=== PATIENT | female | born 2000 | race African-American/Black ===

== ENCOUNTER 2023-10-08 20:37 | Emergency (ER) | payer OTHER, SELFPAY ==
[2023-10-08 20:48] VITALS: BP 157/109; PULSE 102; RESP 20; TEMP 37.3; O2SAT 99; BMI 46.0
--- NOTE | 2023-10-08 21:10 | ED.URI1 ---
HPI - URI/Sore Throat General Chief Complaint: Upper Respiratory Infection Stated Complaint: SOB, ABDOMINAL PAIN Time Seen by Provider: 10/08/23 21:02 Source: patient History of Present Illness HPI Narrative: 22-year-old female presents for 2 to 3-day history of cough. Is nonproductive. No vomiting or diarrhea. No fever. She has a history of asthma and has an inhaler at home. She has not been around ill people as far she knows. Related Data Previous Rx's Medication Instructions Recorded benzonatate 100 mg capsule 100 mg PO TID PRN cough #20 caps 10/08/23 loratadine 5 mg-pseudoephedrine ER 1 tab PO Q12H PRN nasal congestion 10/08/23 120 mg tablet,extended #20 tabs release,12hr (Claritin-D 12 Hour) Allergies Allergy/AdvReac Type Severity Reaction Status Date / Time No Known Drug Allergies Allergy Verified 10/08/23 20:52 Review of Systems ROS Narrative A ten point review of systems is negative except as noted above. Exam Narrative Exam Narrative: Nurses note and vital signs reviewed and patient is not hypoxic. General: The patient appears well and in no apparent distress. Patient is resting comfortably on cart. Skin: Warm, dry, no pallor noted. There is no rash noted. Head: Normocephalic, atraumatic Eye: Normal conjunctiva, no drainage Ears, Nose, Mouth, and Throat: oral mucosa is moist. Nares patent. Cardiovascular: Regular Rate and Rhythm Respiratory: Patient is in no distress, no accessory muscle use, lungs are clear to auscultation, no wheezing, rales or rhonchi Back: non-tender GI: Soft and nontender Musculoskeletal: The patient has no evidence of calf tenderness, no pitting edema, symmetrical pulses noted bilaterally Neurological: A&O, normal speech Psychiatric: Cooperative Constitutional Vital Signs, click to edit/add: Last Vital Signs Temp 99.1 F 10/08/23 20:48 Pulse 102 H 10/08/23 20:48 Resp 20 10/08/23 20:48 BP 157/109 H 10/08/23 20:48 Pulse Ox 99 10/08/23 20:48 Course Vital Signs Vital signs: Vital Signs Temperature 99.1 F 10/08/23 20:48 Pulse Rate 102 H 10/08/23 20:48 Respiratory Rate 20 10/08/23 20:48 Blood Pressure 157/109 H 10/08/23 20:48 Pulse Oximetry 99 10/08/23 20:48 Temperature 99.1 F 10/08/23 20:48 Pulse Rate 102 H 10/08/23 20:48 Respiratory Rate 20 10/08/23 20:48 Blood Pressure 157/109 H 10/08/23 20:48 Pulse Oximetry 99 10/08/23 20:48 MDM - URI/Sore Throat MDM Narrative Medical decision making narrative: COVID and influenza tests are negative and she will be treated symptomatically. Antibiotic not indicated. Treatment diagnosis and follow-up were discussed with the patient Differential Diagnosis Differential diagnosis: Likely upper respiratory infection, viral infection, influenza and other (COVID) Lab Data Attestation: I reviewed the patient's lab results. Labs: Lab Results 10/08/23 Range/Units 20:54 Influenza Type A Ag Negative Influenza Type B Ag Negative SARS-CoV-2 Ag (CV2AG) Negative (NEGATIVE) Discharge Plan Discharge Chief Complaint: Upper Respiratory Infection Clinical Impression: Upper respiratory infection Patient Disposition: Home, Self-Care Time of Disposition Decision: 21:32 Condition: Good Mode of Transportation: Private Vehicle Prescriptions / Home Meds: New benzonatate 100 mg capsule 100 mg PO TID PRN (Reason: cough) Qty: 20 0RF Claritin-D 12 Hour 5-120 mg tablet extended release 12 hr 1 tab PO Q12H PRN (Reason: nasal congestion) Qty: 20 0RF Instructions: Upper Respiratory Infection (ED), Viral Syndrome (ED) Stand Alone Forms: Portal Instructions Referrals: ZAINAB MCCLURE [Primary Care Provider] - 1 week
[2023-10-08 21:28] LABS: Influenza Virus A Antigen Negative; Influenza Virus B Antigen Negative
[2023-10-08 21:29] LABS: Internal Control Within Normal Limits; SARS-CoV-2 Ag NEGATIVE (NEGATIVE)
[2023-10-08] MEDS: BENZONATATE 100 MG CAPSULE PO (21:51)
== END 2023-10-08 21:57 | disposition home or self-care (01) ==
PROVIDERS: Emergency Provider Emergency Medicine; PCP Family Medicine
DX: J06.9 Acute upper respiratory infection, unspecified (principal); J45.909 Unspecified asthma, uncomplicated; Z79.899 Other long term (current) drug therapy; Z20.822 Contact with and (suspected) exposure to COVID-19
CPT/HCPCS: 87804; 87811; 99283

== ENCOUNTER 2023-12-21 11:39 | Outpatient (OUT) | payer OTHER, SELFPAY ==
--- OUTSIDE RECORDS SUMMARY | 2023-12-21 11:45 | XMS_ITS | CCD ---
Author Organization [facility] Care Team Providers Care Small Stock Facer Name Role Phone MD José Miguel Garcia Attending Provider DO Nelson Sams Primary Care Provider DR NELSON SAMS Primary Care Unavailable DENILSON PATEL Admitting Unavailable DENILSON PATEL Attending Unavailable TISHA ., MR HERNANDEZ Consulting Unavailable BRIANNA MUSTAFA Consulting Unavailable None, None Primary Care Provider UnavailMONSE Negron Referring Unavailable NONE, NONE Primary Care Unavailable Nelson Sams MD Primary Care Provider YENI MAYNARD Attending Unavailable YENI MAYNARD Attending Unavailable YENI MAYNARD Attending Unavailable Medications Current Medications Medication Drug Class(es) Dates Sig (Normalized) Sig (Original) acetaminophen 325 mg / HYDROcodone bitartrate 5 mg oral tablet (2 sources) Opioid Agonist Start: 03-26-2022 take 1 tablet by mouth every six hours Hydrocodone-Aceta minophen Active 1 TAB PO Q6H 20 March 26, 2022 Start: 03-26-2022 take 1 tablet by salvatore th every six hours Hydrocodone-Acetaminophen Active 1 TAB P O Q6H 20 March 26, 2022 [id number] 200 actuat albuterol 0.09 mg/actuat metered dose inhaler (1 source) beta2-Adrenergic Agonist take 2 puff(s) by inhalation every four hours as needed albuterol HFA (ProAir HFA) 90 mcg/act inhaler 2 puffs Inhalation every 4 hrs prn 0 Active ethinyl estradiol 0.03 mg / levonorgestrel 0.15 mg oral tablet (1 source) Progestin, Estrogen, Progestin-containing Intrauterine Device Start: 2023 End: 2024 levonorgestrel-ethin yl estradiol (Nordette) 0.15-30 MG-MCG tablet Indications: Abnormal vaginal bleeding Take 1 tablet by mouth in the morning. 28 tablet 11 09/06/2023 09/05/2024 Active fluticasone propionate 0.05 mg/actuat metered dose nasal spray (1 source) Corticosteroid fluticasone (Flonase) 50 MCG/ACT nasal spray 2 sprays 1 (one) time each day at the same time 0 Active metFORMIN hydrochloride 500 mg oral tablet (1 source) Biguanide Start: 2023 End: 2023 take 1 tablet by mouth in the morning metFORMIN (Glucophage) 500 MG tablet Indications: Insulin resistance Take 1 tablet (500 mg) by mouth in the morning and 1 tablet (500 mg) in the evening. Take with meals. 60 tablet 2 09/28/2023 10/28/2023 Active montelukast 10 mg oral tablet (1 source) Leukotriene Receptor Antagonist take 1 tablet by mouth once daily montelukast (SINGULAIR) 10 MG tablet Take 1 tablet by mouth nightly 0 Active spironolactone 25 mg oral tablet (1 source) Aldosterone Antagonist Start: 2023 End: 2024 take 2 tablets by mouth in the morning spironolactone (Aldactone) 25 MG tablet Indications: Hirsutism Take 2 tablets (50 mg) by mouth in the morning. 180 tablet 3 09/06/2023 09/05/2024 Active Problems Problem Classification Problem Date Documented Date Episodic/Chronic Female infertility (1 source) Fertility problem; Translations: [Female infertility, unspecified] 09-27-2023 Chronic Immunizations and screening for infectious disease (2 sources) Patient encounter status; Translations: [Encounter for screening for infections with a predominantly sexual mode of transmission] Onset: 02-02-2023 Episodic Other female genital disorders (1 source) Abnormal vaginal bleeding; Translations: [Abnormal uterine and vaginal bleeding, unspecified] 09-27-2023 Chronic Other nervous system disorders (2 sources) Acute postoperative pain; Translations: [Other acute postprocedural pain] 03-26-2022 Episodic Other non-traumatic joint disorders (4 sources) Pain in right ankle and joints of right foot; Translations: [PAIN IN RIGHT ANKLE] Onset: 12-20-2022 Episodic Other nutritional; endocrine; and metabolic disorders (1 source) Insulin resistance; Translations: [Insulin resistance] 09-28-2023 Chronic Other skin disorders (1 source) Hirsutism; Translations: [Hirsutism] 09-27-2023 Episodic Results Test Name Value Interpretation Reference Range Facil ity Chlamydia/GC DNA, Uron 02-03 Chlamydia Probe, Ur Negative Normal NEG [facility] Comment on above: Result Comment: CHLA MYDIA TRACHOMATIS DNA not detected by nucleic acid amplification. This test is intended for medical purposes only and is not valid for the evaluation of suspected sexual abuse or for other forensic purposes. In certain contexts, culture may be required to meet applicable laws and regulations for diagnosis of C. trachomatis and N. gonorrhoeae infections. Per 2014 CDC recommendations, this test does not include confirmation of positive results by an alternative nucleic acid target. Performed By: #### U CGP #### [facility] [address] [place], [place] [id number] Marketing Secretary: Lavell Mcdonough MD Gonorrhea Probe, Ur Negative Normal NEG [facility] Comment on above: Result Comment: NEIS SERIA GONORRHOEAE DNA not detected by nucleic acid amplification. This test is intended for medical purposes only and is not valid for the evaluation of suspected sexual abuse or for other forensic purposes. In certain contexts, culture may be required to meet applicable laws and regulations for diagnosis of C. trachomatis and N. gonorrhoeae infections. Per 2014 CDC recommendations, this test does not include confirmation of positive results by an alternative nucleic acid target. Performed By: #### U CGP #### [facility] [address] [place], [place] [id number] Marketing Secretary: Lavell Mcdonough MD XR ANKLE RT MIN 3 VIEWSon XR ANKLE RT MIN 3 VIEWS EXAM: XR ANKLE RT MIN 3 VIEWS HISTORY: Ankle pain COMPARISON: None. TECHNIQUE: 3 views FINDINGS: Diffuse subcutaneous soft tissue edema. No osseous lesion, fracture, dislocation or subluxation. Joint spaces are normal. No visualized effusion. IMPRESSION: Diffuse soft tissue edema with no visualized osseous abnormality. Electronically authenticated by: BRIANNA MUSTAFA Date: 2022-12-20 18:10 Normal [facility] HCG ( test) laminemikhail tiana Ql (U)Ordered By: Rich Whyte on 03-26-2022 HCG ( test) Ql (U) Negative [facility] HCG,Urineon 03-26-2022 Beta HCG ( test) Ql (U) Negative Normal [facility] Comment on above: Result Comment: PERF ORMED BY: [place] [address] PATHOLOGIST INSTITUTE SCIENTIST YOLANDA JONES M.D. Performed By: #### U HCG #### [address] [place] 03-26-2022 L - -------- Specimen: [id number] Received: 03/26/22 Status: FLO Angie Num: [id number] Spec Type: Surgical Subm Dr: José Miguel Garcia MD Tissues: A Soft Tissue Mass - Simple Excision (except lipoma) (LEFT AXILLARY MASS) B Soft Tissue Mass - Simple Excision (except lipoma) (RIGHT AXILLARY MASS) Procedures: HE Stain/3, Gross/Micro L5/2 -------- Age/ Patient Sex Location Account Attending Physician -------- Marcia Izquierdo [place] [id number] José Miguel Garcia MD -------- SPEC NUM: [id number] RECD: 03/26/22 STATUS: FLO ADAMS NUM: [id number] JUANA: 03/26/220000 SUBM DR: José Miguel Garcia MD ENTERED: 03/26/[address] [facility] DR: WALTER TYPE: Surgical DEPT: S ENTERED BY: [id number] RECV BY: [id number] ORDERED: HE Stain/3, Gross/Micro L5/2 ORDERED: HE Stain/3, Gross/Micro L5/2 Pathological Diagnosis A. Soft tissue, left axilla, excision: - Ruptured and inflamed epidermal inclusion cyst B. Soft tissue, right axilla, excision: - Ruptured and inflamed epidermal inclusion cyst Clinical Information Bilateral axillary masses Gross Description A. Received in 10% neutral buffered formalin, labeled with the patient's name and left axillary mass is a 4.4 x 3.7 x 1.2 cm aggregate of bey-prakash, rubbery tissue and skin with yellow, lobular, focally hyperemic cut surfaces. [employer] Senior Specialist sections are submitted in one cassette labeled A1. (JAYLYN) B. Received in 10% neutral buffered formalin, labeled with the patient's name and right axillary mass is a 2.5 x 1.2 cm ellipse of bey-prakash, centrally ulcerated skin excised to a depth of 1.1 cm. The specimen is entirely submitted in 2 cassettes as follows: B1 - Central lesional area B2 - Radial tips (JAYLYN) -------- Specimen: [id number] Received: 03/26/22 Status: FLO Adams Num: [id number] Spec Type: Surgical Subm Dr: José Miguel Garcia MD Tissues: A Soft Tissue Mass - Simple Excision (except lipoma) (LEFT AXILLARY MASS) B Soft Tissue Mass - Simple Excision (except lipoma) (RIGHT AXILLARY MASS) Procedures: ZACK Stain/3, Gross/Micro L5/2 -------- Patient: Marcia Izquierdo [id number] (Continued) -------- Specimen: [id number] Received: 03/26/22 (Continued) Signed (signature on file) Yolanda Jones MD 03/27/22 1843 -------- Specimen: [id number] Received: 03/26/22 Status: FLO Adams Num: [id number] Spec Type: Surgical Subm Dr: José Miguel Garcia MD Tissues: A Soft Tissue Mass - Simple Excision (except lipoma) (LEFT AXILLARY MASS) B Soft Tissue Mass - Simple Excision (except lipoma) (RIGHT AXILLARY MASS) Procedures: HE Stain/3, Gross/Micro L5/2 -------- Patient: Marcia Izquierdo [id number] (Continued) -------- Specimen: [id number] Received: 03/26/22 (Continued) Microscopic Description A. One glass slide with H E stained material has been examined. The microscopic findings support the above pathologic diagnosis. B. Two glass slides with H E stained material have been examined. The microscopic findings support the above pathologic diagnosis. [id number] -------- -------- Specimen: [id number] Received: 03/26/22113 Status: FLO Adams Num: [id number] Spec Type: Surgical Subm Dr: José Miguel Garcia MD Tissues: A Soft Tissue Mass - Simple Excision (except lipoma) (LEFT AXILLARY MASS) B Soft Tissue Mass - Simple Excision (except lipoma) (RIGHT AXILLARY MASS) Procedures: HE Stain/3, Gross/Micro L5/2 -------- Patient: Marcia Izquierdo [id number] (Continued) -------- Signed (signature on file) Yolanda Jones MD 03/27/22 1843 Normal [facility] SARS-CoV-2 (COVID-19) RNA REZA+probe Ql (Unsp spec) Negative Normal Negative [facility] Comment on above: Order Comment: Healt hcare Worker?: N Result Comment: Testing for SARS-CoV-2 by RT-PCR This test was developed and its performance characteristics determined by [employer] ([place]) and validated at the [facility]. This test has not been FDA cleared or approved. This test has been authorized by FDA under an Emergency Use Authorization (EUA). This test has been validated in accordance with the FDA's Guidance Document (Policy for Diagnostics Testing in Laboratories Certified to Perform High Complexity Testing under CLIA prior to Emergency Use Authorization for Coronavirus Disease-2019 during the Public Health Emergency) issued on 2019. This test is only authorized for the duration of time the declaration that circumstances exist justifying the authorization of the emergency use of in vitro diagnostic tests for detection of SARS-CoV-2 virus and/or diagnosis of COVID-19 infection under section 564(b)(1) of the Act, 21 U.S.C. 360bbb-3(b)(1), unless the authorization is terminated or revoked sooner. PERFORMED BY: [place] [address] PATHOLOGIST INSTITUTE SCIENTIST YOLADNA JONES M.D. Performed By: #### C OVID 19 [facility] #### [address] COVID-19 Positive/NegativeOr dered By: José Miguel Garcia on 03-24-2022 SARS-CoV-2 (COVID-19) N gene REZA+probe Ql (Resp) Negative Negative [facility] Comment on above: Testing for SARS-CoV -2 by RT-PCR This test was developed and its performance characteristics determined by [employer] ([place]) and validated at the [facility]. This test has not been FDA cleared or approved. This test has been authorized by FDA under an Emergency Use Authorization (EUA). This test has been validated in accordance with the FDA's Guidance Document (Policy for Diagnostics Testing in Laboratories Certified to Perform High Complexity Testing under CLIA prior to Emergency Use Authorization for Coronavirus Disease-2019 during the Public Health Emergency) issued on 2019. This test is only authorized for the duration of time the declaration that circumstances exist justifying the authorization of the emergency use of in vitro diagnostic tests for detection of SARS-CoV-2 virus and/or diagnosis of COVID-19 infection under section 564(b)(1) of the Act, 21 U.S.C. 360bbb-3(b)(1), unless the authorization is terminated or revoked sooner. CHLAMYDIA/N. GONORRHOEAE RNA , TMA, UROGENITALon 10-02-2021 CHLAMYDIA TRACHOMATIS RNA, TMA, UROGENITAL Not detected Normal NOT DETECTED [facility] Comment on above: Performed By: #### 3 , , [id number] #### [facility] [place] [address] Crimping Machine Operator For Metal: Boubacar Wilson MD COMMENT Normal [facility] Comment on above: Result Comment: The analytical performance characteristics of this assay, when used to test SurePath(TM) specimens have been determined by [employer]. The modifications have not been cleared or approved by the FDA. This assay has been validated pursuant to the CLIA regulations and is used for clinical purposes. For additional information, please refer to https://education.Sumbola/faq/IEM573 (This link is being provided for information/ educational purposes only.) Performed By: #### 3 , , [address] #### [facility] of [place] [address] Crimping Machine Operator For Metal: Boubacar Wilson MD NEISSERIA GONORRHOEAE RNA, TMA, UROGENITAL Not detected Normal NOT DETECTED [facility] Comment on above: Performed By: #### 3 , , 12813 #### [facility] [place] [address] Crimping Machine Operator For Metal: Boubacar Wilson MD CULTURE, URINE, ROUTINEon Bacteria identified Cx Nom (U) SEE NOTE Normal [facility] Comment on above: Result Comment: CULTURE, URINE, ROUTINE Micro Number: [id number] Test Status: Final Specimen Source: Urine Specimen Quality: Adequate Result: Mixed genital trent isolated. These superficial bacteria are not indicative of a urinary tract infection. No further organism identification is warranted on this specimen. If clinically indicated, recollect clean-catch, mid-stream urine and transfer immediately to Urine Culture Transport Tube. Performed By: #### 3 , , [address] #### [facility] [address] [place] [address] Crimping Machine Operator For Metal: Boubacar Wilson MD SURESWAB(R) TRICHOMONAS VAGI NALIS RNA, QL, TMAon 10-02-2021 SURESWAB(R) TRICHOMONAS VAGINALIS RNA, QL, TMA Not detected Normal NOT DETECTED [facility] Comment on above: Result Comment: For additional information, please refer to http://education.Sumbola/ faq/Trichomonastma (This link is being provided for informational/ educational purposes only.) Performed By: #### 3 95, 01687, [address]84 #### [facility] [address] [facility], [address] [place] [address] Crimping Machine Operator For Metal: Boubacar Wilson MD Vital Signs Date Time Vital Sign Value Performing Clinician Meli raphael 03-26-2022 10:50-0400 Diastolic blood pressure 91 mm[Hg] MD José Miguel Garcia Work Phone: [facility] 03-26-2022 10:50-0400 Heart rate 92 /min MD José Miguel Garcia Work Phone: [facility] 03-26-2022 10:50-0400 Respiratory rate 16 /min MD José Miguel Garcia Work Phone: [facility] 03-26-2022 10:50-0400 SaO2% (BldA) [Mass fraction] 99 % MD José Miguel Garcia Work Phone: [facility] 03-26-2022 10:50-0400 Systolic blood pressure 151 mm[Hg] MD José Miguel Garcia Work Phone: [facility] 03-26-2022 10:06-0400 Inhaled oxygen flow rate 6 L/min MD José Miguel Garcia Work Phone: [facility] 03-26-2022 08:42-0400 Body height 182.88 cm MD José Miguel Garcia Work Phone: [facility] 03-26-2022 08:42-0400 Body mass index (BMI) [Percentile] Per age and sex 99.1 % MD José Miguel Garcia Work Phone: [facility] 03-26-2022 08:42-0400 Body mass index (BMI) [Ratio] 46.7 kg/m2 MD José Miguel Garcia Work Phone: [facility] 03-26-2022 08:42-0400 Body weight 156.48 kg MD José Miguel Garcia Work Phone: [facility] 03-26-2022 07:27-0400 Body temperature 98.4 [degF] MD José Miguel Garcia Work Phone: [facility] Encounters Encounter Date Encounter Type Care Provider Facility Start: 10-27-2023 End: 10-27-2023 ambulatory YENI MAYNARD Not Available Start: 09-28-2023 ambulatory YENI MAYNARD Not Avai lable Start: 09-28-2023 End: 09-28-2023 Phys/qhp telephone evaluation 5-10 min Yeni Maynard MD Work Phone: [facility] Comment on above: Insulin resistance ( Primary Dx); Abnormal vaginal bleeding; Female fertility problem; Hirsutism Start: 09-06-2023 End: 09-06-2023 ambulatory YENI MAYNARD Not Available Start: 02-02-2023 End: 02-03-2023 ambulatory MONSE Vaughn [facility] Start: 02-02-2023 End: 02-02-2023 Subsequent hospital visit by physician None None [facility] Laboratory Comment on above: Screen for STD (sexu ally transmitted disease) Start: 12-20-2022 End: 12-20-[address] NELSON SAMS Facility: Start: 03-26-2022 End: 03-26-2022 Admission to same day surgery center MD José Miguel Garcia Work Phone: [facility] [place] Start: 03-24-2022 End: 03-24-2022 Patient encounter procedure MD José Miguel Garcia Work Phone: [facility] Procedures Date Procedure Procedure Detail Performing Clinician Start: 03-26-2022 Biopsy of axillary l ymph node MD José Miguel Garcia Work Phone: Plan of Treatment Date Care Activity Detail Author Start: 04-04-2024 DTaP/Tdap/Td vaccine (7 - Td or Tdap) DTaP/Tdap/Td vaccine (7 - Td or Tdap) [facility] Start: 02-03-2024 Depression Screen Depression Screen [facility] Start: 12-07-2023 End: 12-07-2023 Patient encounter procedure 12/07/2023 Office Visit Obstetrics and Gynecology Monse Spicer, HEAT TREAT SUPERVISOR - CNM [address] [facility] [address] [place] [id number] [facility] Start: 10-27-2023 End: 10-27-2023 Patient encounter procedure 10/27/2023 3:00 PM EST Office Visit [facility] [address] [place] [address] Yeni Maynard MD [address] [place] [address] [facility] Start: 10-27-2023 End: 10-27-2023 Professional / ancillary services management 10/27/2023 2:00 PM EST Ancillary Procedure [facility] [address] [place] [address] [facility] Start: 04-30-2023 Influenza vaccination Influenza Vacc ine (#1) [facility] Start: 03-30-2023 Influenza vaccination Flu vacc ine (Season Ended) [facility] Start: 03-26-2022 [facility] Work Phone: Start: 03-26-2022 [facility] Work Phone: Start: 03-20-2021 COVID-19 Vaccine (5 - Booster) COVID-19 Vaccine (5 - Booster) [facility] Start: 2020 Hepatitis C screening Hepatitis C sc reen [facility] Start: 2018 Screening for Chlamy mariano trachomatis Chlamydia/GC screen [facility] Start: 2017 HIV screening HIV screen [facility] Start: 2013 HPV vaccine (1 - 2-d ose series) HPV vaccine (1 - 2-dose series) [facility] End: 02-02-2023 C.trachomatis N.gonorrhoeae DNA, Urine [facility] Work Phone: Comment on above: 1 Occurrences starti ng 02/02/2023 until 02/02/2023 Patient Education Stitches and S taples Hydrocodone and Acetaminophen [facility] Work Phone: Patient referral [facility] Work Phone: Immunizations Immunization Date Immunization Notes Care Provider [facility] 07-20-2019 influenza virus vacc ine, unspecified formulation Yeni Maynard MD Work Phone: [facility] Payers Date Payer Category Payer Unknown [id number] 2022 Unknown [id number] 2022 Unknown BCBS BCBS xxxxxx [id number] 2022-Present [phone] [address] [place] [address] [id number] 2002 Unknown [id number] 2002 Unknown [id number] 2002 Unknown [id number] 2002 Unknown [id number] 2002 Unknown [id number] 2002 Unknown [id number] 1959 Unknown [id number] 1959 Unknown [id number] Self-pay Self Pay [id number] Unknown [employer] [id number] Social History Date Type Detail Facility Tobacco smoking stat us NHIS Unknown if ever smoked [facility] Work Phone: Start: 2000 Sex Assigned At Female [facility] Start: 02-02-2023 End: 09-06-2023 Tobacco smoking status NHIS Never smoked tobacco [facility] Phone: Start: 02-02-2023 End: 09-06-2023 Tobacco use and exposure Smokeless tobacco non-user [facility] Phone: Start: 02-02-2023 End: 09-06-2023 Alcohol intake Lifetime non-drinker (finding) [facility] Phone: Start: 2000 Sex Assigned At Not on file [facility] Phone: Start: 09-06-2023 History of Social function [facility] Start: 09-06-2023 Tobacco use panel [facility] Start: 08-30-2023 Gender identity Identifies as female gender (finding) [facility] Start: 08-30-2023 Sexual orientation Heterosexual (finding) [facility] Healthcare Goals Date Patient Goal Desired Activity /State History of Present illness Narrative 09-28-2023 Yeni Maynard MD - 09/28/2023 8:00 AM EST Note Date & Type Note Facility 09-28-2023 History of Presen t illness Narrative Images from the original note were not included. Yeni Maynard MD Obstetrics and Gynecology Patient: Marcia Izquierdo DOB: 2000 (22 y.o.) Exam Date: 09/28/2023 Reason for Visit - Chief Complaint Patient presents with Follow-up Televisit to discuss results, blood work completed on 09/06/23 NA Visit Vitals LMP (LMP Unknown) Comment: approx January 2023 OB Status Having periods Smoking Status Never History of Present Illness, Associated Treatments and Results - OB History Para Term AB Living 0 0 0 0 0 0 SAB IAB Ectopic Multiple Live Births 0 0 0 0 0 Constitutional: Negative. HENT: Negative. Eyes: Negative. Respiratory: Negative. Cardiovascular: Negative. Gastrointestinal: Negative. Endocrine: Negative. Genitourinary: Negative. Musculoskeletal: Negative. Skin: Negative. Allergic/Immunologic: Negative. Neurological: Negative. Hematological: Negative. Psychiatric/Behavioral: Negative. No Known Allergies Current Outpatient Medications: albuterol HFA (ProAir HFA) 90 mcg/act inhaler, 2 puffs Inhalation every 4 hrs prn, Disp: , Rfl: fluticasone (Flonase) 50 MCG/ACT nasal spray, 2 sprays 1 (one) time each day at the same time, Disp: , Rfl: levonorgestrel-ethinyl estradiol (Nordette) 0.15-30 MG-MCG tablet, Take 1 tablet by mouth in the morning., Disp: 28 tablet, Rfl: 11 spironolactone (Aldactone) 25 MG tablet, Take 2 tablets (50 mg) by mouth in the morning., Disp: 180 tablet, Rfl: 3 Past Medical History: Diagnosis Date PCOS (polycystic ovarian syndrome) Past Surgical History: Procedure Laterality Date CYST REMOVAL bilateral uinder arm Family History Problem Relation Name Age of Onset Breast cancer Mother's Sister Diabetes Mother's Brother Breast cancer Maternal Grandmother Social History Tobacco Use Smoking Status Never Smokeless Tobacco Never Assessment/Plan ICD-10-CM 1. Abnormal vaginal bleeding N93.9 2. Female fertility problem N97.9 3. Hirsutism L68.0 Patient recalled for lab results. Elevated insulin level noted metformin prescribed and patient agrees. Testosterone level elevated an ultrasound of the pelvis will be ordered. LH and FSH were not compatible with PCOS- but we will assess the ovaries with pending ultrasound. Patient in agreement documented in this encounter [facility] Evaluation note Note Date & Type Note Facility Evaluation note No assessment information availa pedro [facility] Work Phone: Evaluation note Note Date & Type Note Facility Evaluation note Diagnosis Screen for STD (sexually transmitted disease) Screening examination for venereal disease documented in this encounter [facility] Work Phone: Evaluation note Note Date & Type Note Facility Evaluation note Diagnosis Insulin resistance- Primary Other abnormal glucose Abnormal vaginal bleeding Other specified noninflammatory disorder of vagina Female fertility problem Hirsutism documented in this encounter [facility] Summary Purpose Family History No Family History Records Found Relationship Condition Age at Onset Recorded Date/T luis Not Specified No pertinent family history Unknown Advance Directives No Advanced Directives Records Found Advance Directive Response Recorded Date/ Time Advance Directives No March 16 10:55am Chief Complaint and Reason for Visit Chief Complaint Axillary Masses Axillary Masses Additional Source Comments INFORMATION SOURCE (unrecogn ized section and content) DATE CREATED AUTHOR 10/02/2021 [facility] DATE CREATED AUTHOR AUTHOR'S ORGANIZ ATION 04/25/2022 [facility] DATE CREATED AUTHOR AUTHOR'S ORGANIZ ATION 12/22/2022 [facility] DATE CREATED AUTHOR AUTHOR'S ORGANIZ ATION 02/08/2023 [facility] DATE CREATED AUTHOR AUTHOR'S ORGANIZ ATION 10/30/2023 [facility] EPIC Care Teams (unrecognized sec tion and content) Team Status: Inactive Member Role Status Dates José Miguel Garcia MD Attending Provider Active Nelson Sams DO Primary Care Provider Active Team Status: Active Member Role Status Dates Nelson Sams DO Primary Care Provider Active Small Stock Facer Relationship Specialty Start Date End Date None, None PCP - General 02/01/23 Small Stock Facer Relationship Specialty Start Date End Date Nelson Sams MD [address] [place] [address] PCP - General Family Medicine 09/06/23 Reason for Visit (unrecogniz ed section and content) Reason Comments Follow-up FOR RECORDS PERTAINING TO PATIENTS WHO ARE OR HAVE BEEN ENROLLED IN A CHEMICAL DEPENDENCY/SUBSTANCEABUSE PROGRAM, SOME INFORMATION MAY BE OMITTED. This clinical summary was aggregated from multiple sources. Caution should be exercised in using it in the provision of clinical care. This summary normalizes information from multiple sources, and as a consequence, information in this document may materially change the coding, format and clinical context of patient data. In addition, data may be omitted in some cases. CLINICAL DECISIONS SHOULD BE BASED ON THE PRIMARY CLINICAL RECORDS. [facility] [employer] [facility]. provides no warranty or guarantee of the accuracy or completeness of information in this document.
[2023-12-21 12:28] LABS: HCG Quantitative 2 mIU/mL
== END 2023-12-21 11:40 | disposition home or self-care (01) ==
PROVIDERS: PCP Family Medicine; Visit Provider Specialist
DX: N91.2 Amenorrhea, unspecified (principal)
CPT/HCPCS: 36415; 84702

== ENCOUNTER 2025-07-03 19:14 | Outpatient (REF) | payer BC, SELFPAY ==
--- OUTSIDE RECORDS SUMMARY | 2025-07-03 14:20 | XMS_ITS | Encounter Summary ---
Author Organization [facility] Address [address] [place] [address] Care Team Providers Care Dewatering Filtering Supervisor Name Role Phone Nelson Sams MD Primary Care Provider + [phone] Reason for Visit * ReasonCommentsGynecologic Exam Encounter Details DateTypeDepartmentCare Team (Latest Contact Info)Ltkxeordjzv09/04/2025 2:20 PM ESTProcedure Visit [facility] [address] [place] [id number] Wojciech Solano DO [address] [place], [place] [id number] Well woman exam with routine gynecological exam; Amenorrhea Social History Tobacco UseTypesPacks/DayYears UsedDateSmoking Tobacco: NeverSmokeless Tobacco: NeverAlcohol UseStandard Drinks/WeekCommentsNever0 (1 standard drink = 0.6 oz pure alcohol)caffeine: occasionallyPHQ-2AnswerDate RecordedPatient Health Questionnaire-2 [id number] and Gender Information ValueDate RecordedSex Assigned at CjgvaKqtmen43/01/2024 1:34 PM ESTLegal Sex Mufrjn3311/11/2022 11:38 PM EDTGender QxlltgcyTkwjaf91/01/2024 1:34 PM ESTSexual UffjlexdsugIurmgerk92/01/2024 1:34 PM ESTdocumented as of this encounter Last Filed Vital Signs Vital SignReadingTime TakenCommentsBlood Vntyhebc230/6007/03/2025 2:57 PM EST Pulse--Temperature--Respiratory Rate--Oxygen Saturation--Inhaled Oxygen Concentration--Bhccop205 kg (335 lb 6.4 oz)07/03/2025 2:57 PM QZMGepgji835.9 cm (6')07/03/2025 2:57 PM ESTBody Mass Index45.4907/03/2025 2:57 PM ESTdocumented in this encounter Plan of Treatment DateTypeDepartmentCare Team (Latest Contact Info)Obqjhdyndyp25/10/2026 2:00 PM ESTProcedure Visit [facility] [address] [place] [phone] Wojciech Solano DO [address] [place] [address] NameTypePriorityAssociated DiagnosesOrder SchedulePap SmearPathology and CytologyRoutine Well woman exam with routine gynecological exam Ordered: 07/03/2025documented as of this encounter Visit Diagnoses Diagnosis Well woman exam with routine gynecological exam Routine gynecological examination Amenorrhea Absence of menstruation documented in this encounter Care Teams Team MemberRelationshipSpecialtyStart DateEnd Date Nelson Sams MD PCP - GeneralFamily Medicine09/06/23documented as of this encounter
--- OUTSIDE RECORDS SUMMARY | 2025-07-03 19:17 | XMS_ITS | Clinical Summary ---
Author Organization [facility] Address [address] [place] [address] Care Team Providers Care Terra Cotta Roofer Helper Name Role Phone Nelson Sams MD Primary Care Provider + [phone] Allergies No known active allergies Medications MedicationSigDispense QuantityRefillsLast FilledStart DateEnd DateStatus albuterol HFA (ProAir HFA) 90 mcg/act inhaler 2 puffs Inhalation every 4 hrs prnActive fluticasone (Flonase) 50 MCG/ACT nasal spray 2 sprays 1 (one) time each day at the same timeActive metFORMIN (Glucophage) 500 MG tablet Indications:Insulin resistanceTAKE 1 TABLET(500 MG) BY MOUTH IN THE MORNING AND IN THE EVENING WITH MEALS 180 tablet 4Active Mounjaro 2.5 MG/0.5ML solution auto-injector ADMINISTER 2.5 MG UNDER THE SKIN EVERY 7 DAYS5Active medroxyPROGESTERone (Provera) 10 MG tablet Indications:AmenorrheaTake 1 tablet (10 mg) by mouth Daily Take 1 tablet by mouth daily for 7 days beginning on day 16 ofthe menstrual cycle. 14 tablet 5109/02/2025ctive Encounters DateTypeDepartmentCare EzfuNbancblujyt04/04/2025 2:20 PM ESTPro[place] [address] Wojciech Solano, DO Well woman exam with routine gynecological exam; Mnmyheqhxi85/04/2025amboo [place] [address] Wojciech Solano DO 05/07/2025 4:00 PM EDTOffice Visit [facility] [address] [place] [address] Wojciech Solano, DO PCOS (polycystic ovarian syndrome); Female gjzizyhsgam29/08/2025amboo flowsheet [facility] [address] [place] [address] Wojciech Solano DO 04/30/2025Travelfrom Last 3 Months Family History Medical HistoryRelationNameCommentsDiabetesMaternal GrandfatherRochelle garnica Breast cancerMaternal GrandmotherDiabetesMother's Brother 1JonathanDiabetes Mother's Brother 2Jonathan HallBreast cancerMother's SisterVeraRelationName StatusCommentsFatherAliveMaternal GrandfatherRochelle hallMaternal Grandmother MotherAliveMother's Brother 1JonathanMother's Brother 2Jonathan HallMother's SisterVera Social History Tobacco UseTypesPacks/DayYears UsedDateSmoking Tobacco: NeverSmokeless Tobacco: Never Tobacco Cessation:Counseling Given: Yes Alcohol UseStandard Drinks/WeekCommentsNever0 (1 standard drink = 0.6 oz pure alcohol)caffeine: occasionallyPHQ-2AnswerDate RecordedPatient Health Questionnaire-2 Jpuvq8784CommentsNoSex and Gender Information ValueDate RecordedSex Assigned at OwrelVzbnfs32/01/2024 1:34 PM ESTLegal Sex Lbusaw5311/11/2022 11:38 PM EDTGender CrdaxfwyXpdzcv17/01/2024 1:34 PM ESTSexual FnpnsdudbbhEepydfae99/01/2024 1:34 PM EST Last Filed Vital Signs Vital SignReadingTime TakenCommentsBlood Jipxslxf261/6007/03/2025 2:57 PM EST Pulse--Temperature--Respiratory Rate--Oxygen Saturation--Inhaled Oxygen Concentration--Ylpfqc446 kg (335 lb 6.4 oz)07/03/2025 2:57 PM KDRTxizhp726.9 cm (6')07/03/2025 2:57 PM ESTBody Mass Index45.4907/03/2025 2:57 PM EST Plan of Treatment DateTypeDepartmentCare Team (Latest Contact Info)Jjtixyhsxtw45/10/2026 2:00 PM ESTProcedure Visit [facility] [address] [place] [address] Wojciech Solano DO [address] [place], [place] [id number] Health MaintenanceDue DateLast DoneCommentsCOVID-19 Vaccine (2024- season) 501/10/2021, 01/23/2021, 01/07/2021, Additional history existsInfluenza Vaccine (#1)509/, 07/20/2019Pneumococcal Vaccine: Pediatrics (0 to 5 Years) and At-Risk Patients (6 to 64 Years)Aged OutNo longer eligible based on patient's age to complete this topic Insurance Care Teams Team MemberRelationshipSpecialtyStart DateEnd Date Nelson Sams MD [facility]09/06/23
--- OUTSIDE RECORDS SUMMARY | 2025-07-03 19:17 | XMS_ITS | Encounter Summary ---
Author Organization [facility] Address [address] [place] [address] Care Team Providers Care Seed Yeast Operator Name Role Phone Nelson Sams MD Primary Care Provider [phone] Encounter Details DateTypeDepartmentCare Team (Latest Contact Info)Uazjijizwdd62/04/2025amboo flowsheet [facility] [address] [place] [address] [place] [address] Wojciech Solano DO [address] [place] [address] [address] [place], [place] [address] Social History Tobacco UseTypesPacks/DayYears UsedDateSmoking Tobacco: NeverSmokeless Tobacco: NeverAlcohol UseStandard Drinks/WeekCommentsNever0 (1 standard drink = 0.6 oz pure alcohol)caffeine: occasionallyPHQ-2AnswerDate RecordedPatient Health Questionnaire-2 Soljt1174CommentsNoSex and Gender Information ValueDate RecordedSex Assigned at PfckcVrnudi01/01/2024 1:34 PM ESTLegal Sex Odzime8211/11/2022 11:38 PM EDTGender XujzvfymHulqsk97/01/2024 1:34 PM ESTSexual VsnarnhsnmjAtncxckg96/01/2024 1:34 PM ESTdocumented as of this encounter Plan of Treatment DateTypeDepartmentCare Team (Latest Contact Info)Hzcizehrfde13/10/2026 2:00 PM ESTProcedure Visit [facility] [address] [place] [address] Wojciech Solano, [address] [place] [address] documented as of this encounter Visit Diagnoses Not on filedocumented in this encounter Care Teams Team MemberRelationshipSpecialtyStart DateEnd Date Nelson Sams MD PCP - GeneralFamily Medicine09/06/23documented as of this encounter
--- OUTSIDE RECORDS SUMMARY | 2025-07-03 19:18 | XMS_ITS | CCD ---
Author Organization [facility] Care Team Providers Care Pricing Lead Name Role Phone MD José Miguel Garcia Attending Provider DO Nelson Mcclure Primary Care Provider [phone] NELSON MCCLURE Primary Care Unavailable DENILSON PATEL Admitting Unavailable KWAME .DENILSON Attending Unavailable TISHA ., MR HERNANDEZ Consulting Unavailable BRIANNA MUSTAFA Consulting Unavailable None, None Primary Care Provider UnavailMONSE Negron Referring Unavailable NONE, NONE Primary Care Unavailable Nelson Mcclure MD Primary Care Provider ROS STOLL Referring Unav ailable Gerda HARRIS MD, William E Unavailable [phone] SELF Referring Unavailable ORS STOLL Attending Unav ailable Furlong Nelson CEBALLOS Primary Care Provider JESSICA WALLACE Referring Unavailable NELSON MCCLURE Primary Care Unavailable NELSON MCCLURE Referring Unavailable NELSON MCCLURE Primary Care Unavailable Geraldinelong Nelson BISWAS Primary Care Provider WOJCIECH SOLANO Attending Unavailable Nelson Mcclure DO Primary Care Provider NELSON MCCLURE Attending Unavailable NELSON MCCLURE Referring Unavailable NELSON MCCLURE Primary Care Unavailable NELSON MCCLURE Attending Unavailable NELSON MCCLURE Referring Unavailable NELSON MCCLURE Primary Care Unavailable JESSICA WALLACE Attending Unavailable NELSON MCCLURE Referring Unavailable NELSON MCCLURE Primary Care Unavailable NELSON MCCLURE Attending Unavailable NELSON MCCLURE Referring Unavailable FURLONG, NELSON Tripp Primary Care Unavailable KANCHANALPESHPILI Attending Unavailable FURLONG, NELSON Tripp Referring Unavailable FURLONG, NELSON Tripp Primary Care Unavailable FURLONG, NELSON Tripp Attending Unavailable FURLONG, NELSON Tripp Referring Unavailable FURLONG, NELSON Tripp Primary Care Unavailable FURLONG, NELSON Tripp Attending Unavailable FURLONG, NELSON Tripp Referring Unavailable FURLONG, NELSON Tripp Primary Care Unavailable Medications Current Medications MedicationDrug Class(es)DatesSig (Normalized)Sig (Original)acetaminophen 325 mg / HYDROcodone bitartrate 5 mg oral tablet (2 sources)Opioid AgonistStart: 61-46-9564bnve 1 tablet by mouth every six hours Hydrocodone-Acetaminophen Active 1 TAB PO Q6H 16 01March 26tart: 38-95-1327tprn 1 tablet by mouth every six hoursHydrocodone-Acetaminophen Active 1 TAB PO Q6H 20 March 26, 2022nda020503 200 actuat albuterol 0.09 mg/actuat metered dose inhaler (12 sources)beta2-Adrenergic AgonistStart: 53-97-0964osti 2 puff(s) by inhalation every six hours as needed for wheezingalbuterol (PROVENTIL HFA;VENTOLIN HFA) 90 mcg/actuation inhaler Inhale 2 puffs every 6 (six) hours as needed for wheezing. 18 g 1 01/04/2025 Activetake 2 puff(s) by inhalation every four hours as neededalbuterol HFA (ProAir HFA) 90 mcg/act inhaler 2 puffs Inhalation every 4 hrs prn Active End: 25-23-0863evvl 2 puff(s) by inhalation every four hours as neededalbuterol (PROVENTIL HFA;VENTOLIN HFA) 90 mcg/actuation inhaler 2 puffs Inhalation every 4 hrs prn 12/18/2024 Discontinued (Therapy completed)amoxicillin 500 mg oral capsule (1 source)Penicillin-class AntibacterialStart: 06-11-2025 End: 69-33-3892lplc 1 capsule by mouth three times dailyamoxicillin (AMOXIL) 500 mg capsule Take 1 capsule (500 mg total) by mouth 3 (three) times a day for 7 days. 21 capsule 06/11/2025 06/18/2025 Activeethinyl estradiol 0.03 mg / levonorgestrel 0.15 mg oral tablet (1 source)Progestin, Estrogen, Progestin-containing Intrauterine DeviceStart: 09-06-2023 End: 02-25-6952irlygkddqcosjp-ethinyl estradiol (Nordette) 0.15-30 MG-MCG tablet Indications: Abnormal vaginal bleeding Take 1 tablet by mouth in the morning. 28 tablet 11 09/06/2023 09/05/2024 Activefluticasone propionate 0.05 mg/actuat metered dose nasal spray (15 sources)Corticosteroidfluticasone (Flonase) 50 MCG/ACT nasal spray 2 sprays 1 (one) time each day at the same time Activefluticasone propionate (FLONASE) 50 mcg/actuation nasal spray 2 sprays 1 (one) time each day at thesame time Active letrozole 2.5 mg oral tablet (2 sources)Aromatase InhibitorStart: 51-11-6271nxbbuwvun (FEMARA) 2.5 mg tablet Take 1 tablet by mouth once daily for 5 days. Menstrual cycle day 3-7 5 tablet 3 04/10/2024 ActivemedroxyPROGESTERone acetate 10 mg oral tablet (2 sources)ProgestinStart: 58-50-3973llrr 1 tablet by mouth once daily medroxyPROGESTERone (PROVERA) 10 mg tablet Take 1 tablet by mouth once daily for 10 days. 10 uzwxjc4704/10/2024 ActivemetFORMIN hydrochloride 500 mg oral tablet (18 sources)BiguanideStart: 05-04-2024 End: 42-45-9216fuub 1 tablet by mouth in the morning, then take 1 tablet by mouth at mealtimemetFORMIN (GLUCOPHAGE) 500 mg tablet Take 1 tablet (500 mg total) by mouth in the morning and 1 tablet (500 mg total) in the evening. Take with meals. 60 tablet 11 12/21/2024 ActiveStart: 09-28-2023 End: 50-41-1723wewz 1 tablet by mouth in the morningmetFORMIN (Glucophage) 500 MG tablet Indications: Insulin resistance Take 1 tablet (500 mg) by mouth in the morning and 1 tablet (500 mg) in the evening. Take with meals. 60 tablet 2 09/28/2023 10/28/2023 Activemontelukast 10 mg oral tablet (1 source)Leukotriene Receptor Antagonisttake 1 tablet by mouth once daily montelukast (SINGULAIR) 10 MG tablet Take 1 tablet by mouth nightly 0 Active Mounjaro 2.5 MG/0.5ML solution auto-injector (3 sources)Start: 20-28-4746Wzcsgegn 2.5 MG/0.5ML solution auto-injector ADMINISTER 2.5 MG UNDER THE SKIN EVERY 7 DAYS 03/20/2025 Activephentermine hydrochloride 37.5 mg oral tablet (6 sources)Sympathomimetic Amine AnorecticStart: 12-18-2024 End: 51-68-7604dmjh 1 tablet by mouth once daily before breakfastphentermine (ADIPEX-P) 37.5 mg tablet Indications: Morbid obesity ([facility]) Take 1 tablet (37.5 mg total) by mouth every morning before breakfast. 30 tablet 12/18/2024 01/17/2025 Discontinued (Side effects)tirzepatide (MOUNJARO) 5 mg/0.5 mL pen injector (3 sources)Start: 49-96-7548onxltkuatjf (MOUNJARO) 5 mg/0.5 mL pen injector Indications: Type 2 diabetes mellitus without complication, without long-term current use of insulin ([facility]) Inject 5 mg under the skin every 7 days.2 mL 5 04/09/2025 Active Completed/Discontinued Medications MedicationDrug Class(es)DatesSig (Normalized)Sig (Original)albuterol-budesonide (AIRSUPRA) 90-80 mcg/actuation HFA aerosol inhaler (5 sources)Start: 12-18-2024 End: 20-91-8314dniu 2 puff(s) by inhalation every four hours as neededalbuterol- budesonide (AIRSUPRA) 90-80 mcg/actuation HFA aerosol inhaler Indications: Mild intermittent asthma without complication Inhale 2 puffs every 4 (four) hours as needed (SOB, wheeze). 10.7 g 1 12/18/2024 01/04/2025 Discontinued (Formulary change)Start: 13-39-2462rsrz 2 puff(s) by inhalation every four hours as needed albuterol-budesonide (AIRSUPRA) 90-80 mcg/actuation HFA aerosol inhaler Indications: Mild intermittent asthma without complication Inhale 2 puffs every 4 (four) hours as needed (SOB, wheeze). 10.7 g 1 12/18/2024 ActiveclomiPHENE citrate 50 mg oral tablet (3 sources)Estrogen Agonist/AntagonistStart: 11-24-2023 End: 85-70-7148swja 2 tablets by mouth once dailyclomiPHENE (Clomid) 50 MG tablet Indications: PCOS (polycystic ovarian syndrome) Take 2 tablets (100 mg) by mouth Daily Take daiy for 5 days 10 tablet 3 11/24/2023 05/07/2025 Discontinued (Therapy completed)Estrogens, Conjugated (DETENTION) / medroxyPROGESTERone (3 sources)Progestin, EstrogenStart: 12-23-2023 End: 94-26-4309ncti 1 tablet by mouth once dailyconjugated estrogens- medroxyPROGESTERone (Premphase) tablet Indications: Amenorrhea Take 1 tablet by mouth Daily 30 tablet 1 12/23/2023 05/07/2025 Discontinued (Therapy completed) Vit-Fe Fumarate-FA (WesTab Plus) 27-1 MG tablet (3 sources)Start: 10-28-2023 End: 50-89-5342lqrc 1 tablet by mouth once dailyPrenatal Vit-Fe Fumarate-FA (WesTab Plus) 27-1 MG tablet Indications: Desire for TAKE 1 TABLET BY MOUTH EVERY DAY 90 tablet 10/28/2023 05/07/2025 Discontinued (Therapy completed) spironolactone 25 mg oral tablet (4 sources)Aldosterone AntagonistStart: 09-06-2023 End: 29-80-7742ntod 2 tablets by mouth in the morningspironolactone (Aldactone) 25 MG tablet Indications: Hirsutism Take 2 tablets (50 mg) by mouth in the morning. 180 tablet 3 09/06/2023 05/07/2025 Discontinued (Therapy completed) tirzepatide (MOUNJARO) 2.5 mg/0.5 mL pen injector (3 sources)Start: 01-17-2025 End: 47-41-6914nnwifhxzbab (MOUNJARO) 2.5 mg/0.5 mL pen injector Indications: Type 2 diabetes mellitus without complication, without long-term current use of insulin ([facility]) Inject 2.5 mg under the skin every 7 days. 4 mL 2 01/17/2025 04/09/2025 Discontinued (Dose adjustment)Start: 56-42-0752tytgkcwpreh (MOUNJARO) 2.5 mg/0.5 mL pen injector Indications: Type 2 diabetes mellitus without comp lication, without long-term current use of insulin ([facility]) Inject 2.5 mg under the skin every 7 days. 4 mL 2 01/17/2025 Active Problems Active Problems Problem ClassificationProblemDateDocumented DateEpisodic/ChronicAsthma (13 sources)Mild intermittent asthma; Translations: [Mild intermittent asthma, uncomplicated]Onset: 853809-36-5857FcrirfnEhwhhpon mellitus without complication (13 sources)Type 2 diabetes mellitus; Translations: [Type 2 diabetes mellitus without complications]Onset: 785306-05-2807CxqixsdZahfkolbq of teeth and jaw (4 sources)Infection of tooth; Translations: [Periapical abscess without sinus] Onset: 871232-35-3593RdznhqvsJtkrhw infertility (4 sources)Fertility problem; Translations: [Female infertility, unspecified] 66-84-8487MluxcnqRxrcxfyldvujm and screening for infectious disease (2 sources)Patient encounter status; Translations: [Encounter for screening for infections with a predominantly sexual mode of transmission]Onset: 02-02-2023 EpisodicMenstrual disorders (4 sources)Irregular menstruation, unspecified; Translations: [Secondary amenorrhea]Onset: 747244-85-7726MvhgqpoRswnz endocrine disorders (3 sources)Polycystic ovary syndrome; Translations: [Polycystic ovarian syndrome]41-43-1828YkscizzCxyex female genital disorders (1 source)Abnormal vaginal bleeding; Translations: [Abnormal uterine and vaginal bleeding, unspecified]91-02-8640VezfdsdYzsnt nervous system disorders (2 sources)Acute postoperative pain; Translations: [Other acute postprocedural pain]51-39-7824EuxjnnboXwijh non-traumatic joint disorders (4 sources)Pain in right ankle and joints of right foot; Translations: [PAIN IN RIGHT ANKLE]Onset: 05-22-7020OovqmdjwMikeh nutritional; endocrine; and metabolic disorders (2 sources)Insulin resistance; Translations: [Insulin resistance]09-28-2023 ChronicOther nutritional; endocrine; and metabolic disorders (14 sources)Morbid obesity; Translations: [Morbid (severe) obesity due to excess calories]Onset: 011896-14-0902LhtglayCcbnz nutritional; endocrine; and metabolic disorders (2 sources)Morbid (severe) obesity due to excess calories; Translations: [Morbid (severe) obesity due to excess calories]Onset: 34-07-6242HkxbdhkVoatq nutritional; endocrine; and metabolic disorders (1 source)Body mass index 40+ - severely obese; Translations: [Body mass index (BMI) 45.0-49.9, adult]22-89-9008LqtdhupIjldp skin disorders (1 source)Hirsutism; Translations: [Hirsutism]51-15-6165UwwpmkatKjplz skin disorders (11 sources)Hidradenitis suppurativa; Translations: [Hidradenitis suppurativa] 21-97-5510GbxnwcamJxdpfdjcxkrx (1 source)3 month check. Back is hurting in the left hip bone, toeOnset: 95-07-6803Qgsiegoeukpv (1 source)Weight CheckOnset: 89-49-0986Givdepnodfcs (1 source)Breast MassOnset: 77-17-3229Aqnqmgvgjvoc (1 source)Insulin resistance, unspecified; Translations: [Insulin resistance, unspecified]Onset: 08-65-2721Nvjfnxnjwkhw (1 source)Annual ExamOnset: 12-18-2024 Past or Other Problems Problem ClassificationProblemDateDocumented DateEpisodic/ChronicMood disorders (10 sources)Mood disordersOnset: 12-18-2024 Resolved: 798698-27-6129Svpygbfxdukv breast conditions (3 sources)Breast lump; Translations: [Unspecified lump in the right breast, lower outer quadrant]Onset: 700555-90-6460UsakohwiTwmcc skin disorders (1 source)Hidradenitis suppurativa; Translations: [Hidradenitis suppurativa] Onset: 52-59-4388BngutqqiVobnwmlgvnte (1 source)Onset: Results Test NameValueInterpretationReference RangeFacilityPOCT Hemoglobin A1con 70-54-6945VgW8s (Bld) [Mass fraction]5.5 %4 - 7 %Excela HealthMICROALBUMIN / CREATININE URINE RATIOon 37-30-4685Bprisas DL <= 20 mg/L (U) [Mass/Vol]1.4 mg/dLNormal0.0-1.9[facility] PPGComment on above:Performed By: #### RD #### [facility] ([facility]) [address] [place] [address] VIRMALB/CREAT RATIO9.1 mg/gNormal0.0-30.0[facility] PPGComment on above:Performed By: #### RD #### [facility] ([facility]) [address] [place] [address] VIRURINE CREATININE,ECN009.83 mg/dLNormalKindred Healthcare Ambulatory PPGComment on above:Performed By: #### RD #### [facility] ([facility]) [address] [place] [address] VIRUS BREAST RT LIMITEDon 14-29-1022VG BREAST RT LIMITEDUS BREAST RT LIMITED MARCIA URIBE 2002 [id number] EXAM: US BREAST RT LIMITED, 01/04/2025 7:57 AM CLINICAL INDICATIONS:Breast lump on right side at 7 o'clock position. Targeted ultrasound performedfor further characterization of an area of palpable abnormality/lumps COMPARISON: No prior studies available for comparison. TECHNIQUE: Multiple real-time prakash-scale images of the right breast in the 4 and 7 o'clock axis were performed. Color Doppler was utilized to assess vascular flow. FINDINGS: The areas of palpable concern were evaluated. There is no focal mass, architectural distortion or abnormal vascularity seen. IMPRESSION: Normal limited ultrasound. No focal abnormality in the areas of palpable concern. Palpable lumps likely represent dense breast tissue. Continued clinical follow-up recommended. Patient risk level is currently calculated as minimally elevated (TC lifetime risk 20.9%), and riskshould be recalculated at age 27 to determine if early screening mammography is indicated. BI-RADS: BI-RADS 2 - Benign Recommendation: Follow up per ACR recommendations or as clinically indicated. Patient was given the results before leaving the department. Finalized by Sharonda Calderón MD on 01/04/2025 8:17 AM 2 FU ACRNormalSouthern [place] Medical CenterPONE Hemoglobin A1con 51-73-5068MsA3d (Bld) [Mass fraction]6.7 %4 - 7 %[facility] COMPREHENSIVE METABOLIC PANELon 36-66-6609Dwdecvh [Mass/Vol]4.3 g/dLNormal 3.2-5.3ProMedUniversity Hospitals Elyria Medical Center HospitalComment on above:Performed By: #### SONIA 40931- 1, CMP #### [facility] ([id number]) [address], [address] [place], [place] [address]YCZ [Catalytic activity/Vol]62 U/ZRhiekh02-746GcjRfsfzl [place] HospitalComment on above:Performed By: #### Dhruv SCOTT31-1, CMP #### [facility] ([id number]) [address], [address] [place], [place] [address]JZE [Catalytic activity/Vol]22 U/LNormal0-31ProMedUniversity Hospitals Elyria Medical Center HospitalComment on above:Performed By: #### SONIA, 17614-7, CMP #### [facility] ([id number]) [address], [address] [place], [place] [address]Cbusx gap [Moles/Vol]10 mmol/LNormal5-15ProMercy Health Defiance Hospitalca Yellow [facility] HospitalComment on above:Performed By: #### SONIA, 49331-6, CMP #### [facility] ([id number]) [address], [address] [place], [place] [address]OHM [Catalytic activity/Vol]24 U/LNormal0-41Pro[facility] Wilson HospitalComment on above:Performed By: #### TSHR, 86129-6, CMP #### [facility] ([id number]) [address], [address] [place], [place] [address]Onatwrrmt [Mass/Vol]0.4 mg/dLNormal0.3-1.2PKettering Health Greene Memorial HospitalComment on above:Performed By: #### Everardo SCOTT-1, CMP #### [facility] ([id number]) [address], [address] [place], [place] [address]Ommfrlh [Mass/Vol]9.3 mg/dLNormal8.5-10.5PKettering Health Greene Memorial HospitalComment on above:Performed By: #### Everardo SCOTT-1, CMP #### [facility] ([id number]) [address], [address] [place], [place] [address]Wewtzrtb [Moles/Vol]101 mmol/FLucexg69-957FqdQylmxu [place] HospitalComment on above:Performed By: #### Everardo SCOTT-1, CMP #### [facility] ([id number]) [address], [address] [place], [place] [address]LD6 [Moles/Vol]24 mmol/MRstguh67-02KssFfippy [facility] Comment on above:Performed By: #### Everardo SCOTT-1, CMP #### [facility] ([id number]) [address], [address] [place], [place] [address]Jtfbunjxwh [Mass/Vol]0.65 mg/dLNormal0.40-1.00ProC[facility] Clinic [facility] HospitalComment on above:Result Comment: METHOD TRACEABLE TO IDMS STANDARD Performed By: #### Everardo SCOTT-1, CMP #### [facility] ([id number]) [address], [address] [place], [place] [address]lERZ (CKD-EPI) NON-RACE DEPENDENT>90Normal>59ProCleveland Clinic Mary[facility] Hospital HospitalComment on above:Result Comment: Reported eGFR is based on the CKD-EPI 2020 equation that does not use a race coefficient.Performed By: #### Everardo SCOTT-1, CMP #### [facility] ([id number]) [address], [address] [place], [place] [address]Nzpivbc [Mass/Vol]142 mg/kZRkgj02-06TnvXnsabbCleveland Clinic Medina Hospital Comment on above:Performed By: #### Everardo SCOTT-1, CMP #### [facility] ([id number]) [address], [address] [place], [place] [address]Tdawclsyx [Moles/Vol]4.2 mmol/LNormal3.5-5.0ProC[facility] Clinic [facility] HospitalComment on above:Performed By: #### Everardo SCOTT-1, CMP #### [facility] ([id number]) [address], [address] [place], [place] [address]Gcqttyr [Mass/Vol]8.1 g/dLHigh6.0-8.0[facility] Comment on above:Performed By: #### Everardo SCOTT-1, CMP #### [facility] ([id number]) [address], [address] [place], [place] [address]Xmuoui [Moles/Vol]135 mmol/DPqizqc868-588VksIixpbf [place] HospitalComment on above:Performed By: #### Everardo SCOTT-1, CMP #### [facility] ([id number]) [address], [address] [place], [place] [address]Ttmy nitrogen [Mass/Vol]10 mg/dLNormal5-23ProC[facility] Clinic [facility] HospitalComment on above:Performed By: #### Everardo SCOTT-1, CMP #### [facility] ([id number]) [address], [address] [place], [place] [address]Exfrg 1996 panelon 20-83-2336Vvkudmzonrh [Mass/Vol]178 mg/dL Nehgph811-841RhoVzfpkr [place] HospitalComment on above:Performed By: #### SONIA 07199-7, CMP #### [facility] ([id number]) [address], [address] [place], [place] [address]Bjhtarsutfs in HDL [Mass/Vol]32 mg/dLLow>39ProC[facility] HospitalComment on above:Result Comment: HDL <40 mg/dL - High Risk HDL > or = 40mg/dL- Desirable HDL >60 mg/dL - Negative Risk Performed By: #### Dhruv SCOTT31-1, CMP #### [facility] ([id number]) [address], [address] [place], [place] [address]Swpvardgvld in LDL [Mass/Vol]126 mg/dLNormal<130ProCleveland Clinic Medina HospitalComment on above:Result Comment: LDL <100 mg/dL - Desirable LDL >160 mg/dL - High Risk Performed By: #### Dhruv SCOTT31-1, CMP #### [facility] ([id number]) [address] [facility] [address] [place], [place] [address]Ruayzrydeph in VLDL [Mass/Vol]20 mg/dLNormal0-30ProC[facility] HospitalComment on above:Performed By: #### Dhruv SCOTT31-1, CMP #### [facility] ([id number]) [address], [facility] [address] [place], [place] [address]EGYPNOJAARU:HDL5.6High1.0-5.0ProCleveland Clinic Medina HospitalComment on above:Performed By: #### Dhruv SCOTT31-1, CMP #### [facility] ([id number]) [address], [address] [place], [place] [address]Gehowprojxwl [Mass/Vol]99 mg/jNHziogv98-709KmwOfxmvd [facility] OhioComment on above:Performed By: #### SONIA, 26112-2, CMP #### [facility] ([id number]) [address] [place], [place] [address]CYN WITH REFLEXon 68-68-0535VPN1.08 uIU/mLNormal0.49-4.67 [facility] OhioComment on above:Performed By: #### SONIA, 69613-2, CMP #### [facility] ([id number]) [address] [place], [place] [address]18-Ynibhsxywqnxzefrzgf [Mass/Vol]on 77-82-0824Dugfxmjvo Clinic HYDROXYPROGESTERONE-17on 416654-Tbzcazmbmylkfxqojab [Mass/Vol]24.47 ng/dL NINF - 206.00 ng/dLMercy Health Willard HospitalComment on above: INTERPRETIVE INFORMATION for 17-Hydroxyprogesterone in females: Follicular 15 to 70 ng/dL Luteal 35 to 290 ng/dL REFERENCE INTERVAL: 17-Hydroxyprogesterone Qnt, HPLC-MS/MS Access complete set of age- and/or gender-specific reference intervals for this test in the [facility] Test Directory ([facility]). This test was developed and its performance characteristics determined by [facility]. It has not been cleared or approved by the US Food and Drug Administration. This test was performed in a CLIA certified laboratory and is intended for clinical purposes. Performed By: [facility] [address] [place] [address] Transplant Coordinator: Guillermo Rivas MD, PhD CLIA Number: [id number] ANTI MULLERIAN HORMONEon 84-71-7515Rsgfjzdcuzhaag and review of laboratory resultsNormalCleveland ClinicMullerian inhibiting substance [Mass/Vol]3.13 ng/mL 1.22 - 11.70 ng/mLCleveland ClinicCleveland ClinicMullerian inhibiting substance [Mass/Vol]3.13 ng/mLNormal1.22-11.70[facility] HospitalComment on above:Order Comment: Specimen Type: BLOOD SPECIMEN Ordering Facility: [facility] Address: [address] [place], [place] [address]Performed By: #### LUJAN #### [facility] CLIA [id number] [address] [place] [address] [id number] [address] [place] AMERICAB-HCG SerPl-aCncon 74-59-3759YJU.beta subunit Qnm[IU]/mLNormal<5.0[facility] HospitalComment on above: Order Comment: Specimen Type: BLOOD SPECIMEN Ordering Facility: [facility] Address: [address] [place], [place] [address]Result Comment: NegativePerformed By: #### 24511-5 #### [facility] CLIA [id number] [facility] [address] [place] OF AMERICACNOVon 56-55-6704COQKWfhxgk Visit (REIAV) MARCIA URIBE ([id number]) 4 F Date Time Provider Department 04/10/24 10:45 AM ROS STOLL During your visit today, we recorded the following information about you: Pulse Blood pressure Weight Height 75/minute 107/85 166 kg 1.829 m Last Period 10/16/23 Ros Stoll MD 04/10/2024 12:09 PM Addendum I would recommend you see a analytics specialist. deck specialist is a subspecialty in Urology department. I would recommend you see Drs. Farheen Michel, Jose Caldera, or Marcus Chang. The appointment phone number is [phone]. LETROZOLE (Femara) INSTRUCTIONS Letrozole: 1 tablet(s) a day, cycle days 3-7 Note: 1st day of full flow is cycle day 1 Have sexual intercourse approximately every other day for 1 week beginning cycle day 11 You don't need temperature charts or LH predictor kits because normal cycle lengths indicate ovulatory cycles. If you are planning inseminations, you will use LH predictor kits for timing If normal 28 - 32 day cycle, repeat above for a total of 4 cycles Call office if: cycles longer than 35 days not after 4 regular cycles Side effects of Letrozole may include: acne headache hot flushes leg cramps nausea If side effects are severe, alternative medications may be available. Letrozole has a 5% chance of multiple (twins or more). Progesterone: May be given to bring on a period if you have not had a period after 40 days and a home test is negative. Continue to take Progesterone if you have light bleeding. Expect to bleed within 2 weeks of finishing Progesterone. - PCOS resources: https://www.acog.org/Patients/FAQs/Ujnaahwgqd-Eocye-Zuvnmzxu-PCOS Https://www.pcosaa.org https://pcoschallenge.org PCOS - [employer].com on [employer] - [employer]/Women with PCOS speak from the heart. The zabala to a PCOS diet is carb restriction or elimination. Track your calories with an artie like Lose It. The goal is a 1400 calorie diet that is high in protein. Some of our patients also have tried Paleo diet, mediterranean diet, Keto diet (Keto diet is a bit hard to sustain in my opinion), or Weight Watcher with success. Exercise and maintain a healthy weight is also extremely important. Maintain a normal exercise routine, 20 to 30 minutes per day, 4 to 5 times per week. PCOS supplements: The following supplements are marketed to women with PCOS. Although there is no great evidence for benefit, I do not think they are harmful either. Darrian-inositol 2000mg daily NAC (N-acetylcysteine) 600mg daily Vitamin D 4000 units daily Book I like about PCOS Healing PCOS: A 21-Day Plan for Reclaiming Your Health and Life with Polycystic Ovary Syndrome by Blanca Del Toro. She also has a Podcast and website called PCOS Diana Norton MD 04/10/2024 2:43 PM Signed REPRODUCTIVE ENDOCRINOLOGY AND INFERTILITY NEW PATIENT CLINIC NOTE SERVICE DATE: 04/10/2024 SERVICE TIME: 12:15 PM NAME: Marcia Uribe REFERRED BY: SELF CHIEF COMPLAINT: Procreative management and counseling HISTORY OF PRESENT ILLNESS Marcia Uribe is a 23 year old G0 female who presents for new patient visit. Irregular menstrual cycle. LMP Sep 2023. 23 yo G0 with secondary amenorrhea in s/o PCOS, desires fertility. x 2 years, together x 3 years. Previously was taking OCPs for PCOS, stopped in Sep of this year. Menarche age 14. Reports she was initially diagnosed with suspected PCOS at 15 based on abnormal hair growth, irregular cycles. Started OCPs and metformin at that time. Last labs done this past year w/ outside [facility] Dr. Hernandez. While on OCPs had regular monthly cycles lasting 5 days, not heavy or painful. Reports stopping OCPs in September to try to conceive and has been amenorrheic since then. Took clomid 50 mg CD3-7 x 1 cycle and did not have a period. Labs confirmed no ovulation. Was prescribed provera to induce a period, took x 5 days without bleed. Was also recommended increasing clomid to 100 but has not done this yet. [place] 4-5x/week since September pretty consistently. Still on metformin 500 mg BID, tolerating OK. No known family hx infertility, early menopause, genetic issues, cognitive delay, thyroid or autoimmune issues. Denies other PMH apart from hydradenitis suppurativa. No relevant PSH. Not taking any medications except metformin at this time, not on PNVs. Previously tried darrian-inositol for a few months but did not notice any effect so stopped taking. 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 Author Type: Fellow Type: Consult Progress Note Filed: 05/05/2024 00:32 Note Text: REPRODUCTIVE ENDOCRINOLOGY AND INFERTILITY NEW PATIENT CLINIC NOTE SERVICE DATE: 04/10/2024 SERVICE TIME: 12:15 PM NAME: Marcia Uribe REFERRED BY: SELF CHIEF COMPLAINT: Procreative management and counseling HISTORY OF PRESENT ILLNESS Marcia Uribe is a 23 year old G0 female who presents for new patient visit. Irregular menstrual cycle. LMP Sep 2023. 23 yo G0 with secondary amenorrhea in s/o PCOS, desires fertility. x 2 years, together x 3 years. Previously was taking OCPs for PCOS, stopped in Sep of this year. Menarche age 14. Reports she was initially diagnosed with suspected PCOS at 15 based on abnormal hair growth, irregular cycles. Started OCPs and metformin at that time. Last labs done this past year w/ outside [facility]ILL [facility] Dr. Hernandez. While on OCPs had regular monthly cycles lasting 5 days, not heavy or painful. Reports stopping OCPs in September to try to conceive and has been amenorrheic since then. Took clomid 50 mg CD3-7 x 1 cycle and did not have a period. Labs confirmed no ovulation. Was prescribed provera to induce a period, took x 5 days without bleed. Was also recommended increasing clomid to 100 but has not done this yet. [place] 4-5x/week since September pretty consistently.Still on metformin 500 mg BID, tolerating OK. No known family hx infertility, early menopause, genetic issues, cognitive delay, thyroid or autoimmune issues. Denies other PMH apart from hydradenitis suppurativa. No relevant PSH. Not taking any medications except metformin at this time, not on PNVs. Previously tried darrian-inositol for a few months but did not notice any effect so stopped taking. 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 Hx STIs: No Dyspareunia: No LABS/IMAGING: Per OSH notes, normal thyroid testing (unable to view results) PAST MEDICAL HISTORY No date: Asthma No date: Hidradenitis suppurativa No date: Vitamin D deficiency PAST SURGICAL HISTORY No date: CYST/MOLE REMOVAL Comment: excision and drain of bilateral axillary masses, hx Hidradenitis suppurativa FAMILY HISTORY Problem Relation Age of Onset Breast Cancer Maternal Grandmother Breast Cancer Maternal Aunt Uterine Cancer No Family History Ovarian cancer No Family History Cervical Cancer No Family History Social History Tobacco Use Smoking status: Never Smokeless tobacco: Never Substance Use Topics Alcohol use: Not Currently Drug use: Not Currently Current Outpatient Medications Medication Sig metFORMIN (GLUCOPHAGE) 500 mg tablet Take 500 mg by mouth two times a day. letrozole (FEMARA) 2.5 mg tablet Take 1 tablet by mouth once daily for 5 days. Menstrual cycle day 3-7 medroxyPROGESTERone (PROVERA) 10 mg tablet Take 1 tablet by mouth once daily for 10 days. No current facility-administered medications for this visit. Allergies As of Date: 04/10/2024 (No Known Allergies) Fully Assessed 04/10/2024 Partner History Both patient and partner give permission to discuss test results and medication information with the other. Partner gives permission to access EMR. Partner Information * If Partner is female, check box for associated questions.: No Partner's Name: Shira Uribe Partner's : 1997 Partner's Partner's Ethnicity: Partner's Race: Black or Occupation: Construction Legally ?: Yes Years together: in 07/2022, together 12/2020 Do they have children together?: No Any other Previous Pregnancies?: Yes Date of last : x 2015 with a diff partner Number of cigarettes smoked daily: None Marijuana use: No Number of alcoholic beverages: Noneper week Medications: none Pertinent Medical Hx: none Pertinent Surgical Hx: none Pertinent Genetic Hx: none Fathered children current relationship: No Fathered children prior relationship: Yes Partner has had: Difficulty with erections Partner had fever in the last 4 months: No Partner has [facility] medical chart: Yes Partner had prior fertility testing or treatment elsewhere: Yes Semen Analysis: Semen analysis: Not done ASSESSMENT AND PLAN Marcia Uribe is a 23 year old female who presents for new patient visit. Marcia was seen today for new patient. Diagnoses and all orders for this visit: Irregular menses - HYDROXYPROGESTERONE-17; Future - HCG QUANTITATIVE; Future - PROGESTERONE; Future - ESTRADIOL-17B BLD; Future - ANTI MULLERIAN HORMONE; Future - FOL (more content not included)...NormalProvidence HospitalE2 [Mass/Vol]on 15-44-1141Feafyncwjswusv and review of laboratory resultsAbnormal [facility] Willard HospitalESTRADIOL-17B BLDon [id number] [Mass/Vol]59 pg/mLHigh8 - 37 pg/mLCaccess hospital dayton ClinicComment on above:This test is not suitable for patients receiving treatment with the drug Fulvestrant (Faslodex). The drug causes an interference leading to falsely elevated estradiol results. Menstrual cycle Estradiol reference ranges: Follicular : < 234 pg/mL Ovulation : 41 to 398 pg/mL Luteal : < 342 pg/mL Estradiol reference ranges vary by gestational period: First trimester : 154 to 3243 pg/mL Second trimester : 1561 to 32017 pg/mL Third trimester : 8285 to >37013 pg/mL Post-menopausal Estradiol reference range: < 41 pg/mL Reference: 1. Estradiol - E2 (Estradiol III) [package insert V 3.0 Yemeni]. [facility], [place], [place], January 2016. Estradiol SerPl-mCncon 86-31-4445M8 [Mass/Vol]59 pg/mLHigh8-37[facility] Comment on above:Order Comment: Specimen Type: BLOOD SPECIMEN Ordering Facility: [facility] Address: [address] [place], [place] [address]Sfzzfn Comment: This test is not suitable for patients receiving treatment with the drug Fulvestrant (Faslodex). The drug causes an interference leading to falsely elevated estradiol results. Menstrual cycle Estradiol reference ranges: Follicular : < 234 pg/mL Ovulation : 41 to 398 pg/mL Luteal : < 342 pg/mL Estradiol reference ranges vary by gestational period: First trimester : 154 to 3243 pg/mL Second trimester : 1561 to 18543 pg/mL Third trimester : 8285 to >69120 pg/mL Post-menopausal Estradiol reference range: < 41 pg/mL Reference: 1. Estradiol - E2 (Estradiol III) [package insert V 3.0 Yemeni]. [facility], [place], [place], January 2016.Performed By: #### 2243-4, 2839-9 #### [facility] CLIA [id number] [address] [facility] [address] [place] OF AMERICAFOLLICLE STIMULATING HORMONEon 04-10-2024 Follitropin Qn3.7 m[IU]/mLSee comment mIU/mLCaccess hospital dayton ClinicComment on above: Reference range: Follicular: 3.5-12.5 mIU/mL Ovulation: 4.7-21.5 mIU/mL Luteal: 1.7-7.7 mIU/mL Postmenopausal: 25.8-134.8 mIU/mL FSH SerPl-aCncon 61-30-4554Wrebkbyugrf Qn3.7 m[IU]/mLNormalSee commentSevier Valley HospitalComment on above:Order Comment: Specimen Type: BLOOD SPECIMEN Ordering Facility: [facility] Address: [address] [place], [place] [address]Result Comment: Reference range: Follicular: 3.5-12.5 mIU/mL Ovulation: 4.7-21.5 mIU/mL Luteal: 1.7-7.7 mIU/mL Postmenopausal: 25.8-134.8 mIU/mLPerformed By: #### 95574-8, 2842-3 #### [facility] CLIA [id number] [address] [place] [address] [place] OF AMERICAHCG QUANTITATIVEon 86-79-9169PFI.beta subunit QnNINFMercy Health Willard HospitalComment on above:Negative HCG.beta subunit Qnon 83-06-9050Hnstmscoezudwc and review of laboratory results NormalOhioHealth Grove City Methodist HospitalHYDROXYPROGESTERONE-17on 08-97-352423- HYDROXYPROGESTERONE QUANTITATIVE BY HPLC-MS/MS, SERUM OR FARVGI25.47 ng/dLNormal <=206.00[facility]on HospitalComment on above:Order Comment: Specimen Type: BLOOD SPECIMEN Ordering Facility: [facility] Address: [address] [place], [place] [address]Lfogur Comment: INTERPRETIVE INFORMATION for 17-Hydroxyprogesterone in females: Follicular 15 to 70 ng/dL Luteal 35 to 290 ng/dL REFERENCE INTERVAL: 17-Hydroxyprogesterone Qnt, HPLC-MS/MS Access complete set of age- and/or gender-specific reference intervals for this test in the [facility] Test Directory (Primordial). This test was developed and its performance characteristics determined by [facility]. It has not been cleared or approved by the US Food and Drug Administration. This test was performed in a CLIA certified laboratory and is intended for clinical purposes. Performed By: [facility] [address] [place] [address] Transplant Coordinator: Guillermo Rivas MD, PhD CLIA Number: [id number] By: #### HPROG #### [facility] CLIA [id number] [address] [place], [place] [address]Lo Panel Informationon 73-79-4606Geizpjhdn East [facility] Regional HospitalPROGESTERONEon 02-57-6202Hkaqksyzznyc [Mass/Vol]ng/mLSee comment ng/mLCleveland ClinicComment on above:Menstrual Cycle Progesterone Reference Ranges: Follicular: <1.0 ng/mL Ovulation: <12.1 ng/mL Luteal: 1.8 to 23.9 ng/mL. Progesterone Reference Ranges vary by gestational period: First Trimester: 11.0 to 44.3 ng/mL Second Trimester: 25.4 to 83.3 ng/mL Third Trimester: 58.7 to 214 ng/mL Post menopausal Progesterone: <0.5 ng/mL Reference: 1. Progesterone (Progesterone III) [package insert V 1.0 Yemeni]. [facility], [place], [place]. May 2015. PROLACTINon 98-36-4321Jdbtfuuxc [Mass/Vol]17.9 ng/mL4.5 - 26.8 ng/mLCleveland ClinicComment on above:Prolactin test is performed using the [facility] Electrochemiluminescence Immunoassay method. Results obtained with different methods or kits cannot be used interchangeably.Progest SerPl-mCncon 04-10-2024 Progesterone [Mass/Vol]ng/mLNormalSee commentAvon HospitalComment on above:Order Comment: Specimen Type: BLOOD SPECIMEN Ordering Facility: [facility] Address: [address] [place], [place] [address]Result Comment: Menstrual Cycle Progesterone Reference Ranges: Follicular: <1.0 ng/mL Ovulation: <12.1 ng/mL Luteal: 1.8 to 23.9 ng/mL. Progesterone Reference Ranges vary by gestational period: First Trimester: 11.0 to 44.3 ng/mL Second Trimester: 25.4 to 83.3 ng/mL Third Trimester: 58.7 to 214 ng/mL Post menopausal Progesterone: <0.5 ng/mL Reference: 1. Progesterone (Progesterone III) [package insert V 1.0 Yemeni]. [facility], [place], [place]. May 2015.Performed By: #### 2243-4, 2839-9 #### [facility] CLIA [id number] [place] [address] [place] OF AMERICAProlactin SerPl-mCncon 04-10-2024 Prolactin [Mass/Vol]17.9 ng/mLNormal4.5-26.8Avon HospitalComment on above:Order Comment: Specimen Type: BLOOD SPECIMEN Ordering Facility: [facility] Address: [address] [place], [place] [address]Result Comment: Prolactin test is performed using the [facility] Electrochemiluminescence Immunoassay method. Results obtained with different methods or kits cannot be used interchangeably.Performed By: #### 23866-0, 2842-3 #### [facility] CLIA [id number] [address] [facility] [address] [id number] [place] OF AMERICAProlactin [Mass/Vol]on 20-64-0769Qioyjrhripvpzw and review of laboratory resultsNormalCSelect Medical [facility] Chlamydia/GC DNA, Uron 17-31-8363Fqvpfcuis Probe, UrNegativeNormalNEGMercy Dickinson HospitalComment on above:Result Comment: CHLAMYDIA TRACHOMATIS DNA not detected by nucleic acid [...] positive results by an alternative nucleic acid target.Performed By: #### UCGP #### [email or web address] [place], [place] [id number] Net Application Support Specialist: Ariadna Ray Probe, UrNegativeNoThe Christ HospitalComment on above:Result Comment: NEISSERIA GONORRHOEAE DNA not detected by nucleic acid [...] positive results by an alternative nucleic acid target.Performed By: #### UCGP #### [email or web address] [address] [place] [id number] Net Application Support Specialist: PATTI RayR ANKLE RT MIN 3 VIEWSon 82-39-2043GI ANKLE RT MIN 3 VIEWSEXAM: XR ANKLE RT MIN 3 VIEWS HISTORY: Ankle pain COMPARISON: None. TECHNIQUE: 3 views FINDINGS: Diffuse subcutaneous soft tissue edema. No osseous lesion, fracture, dislocation or subluxation. Joint spaces are normal. No visualized effusion. IMPRESSION: Diffuse soft tissue edema with no visualized osseous abnormality. Electronically authenticated by: BRIANNA MUSTAFA Date: 2022-12-20 18:10Medina HospitalHCG ( test) [place].rapid Ql (U)Ordered By: Rich Whyte on 58-57-2712JZU ( test) Ql (U)NegativeOur Lady Of Mercy Hospital - AndersonHCG,Urineon 12-24-7773Hbje HCG ( test) Ql (U)NegativeNormal [facility] Hospital - AndersonComment on above:Result Comment: PERFORMED BY: [place] [address] [place] [address] PATHOLOGIST SPECIALIST [employer]NAGERS YOLANDA JONES M.D.Performed By: #### UHCG #### [place] [id number] [facility] 03-26-2022 Specimen: [id number] Received: 03/26/22 Status: FLO James Num: [id number] Spec Type: Surgical Subm Dr: José Miguel Garcia MD Tissues: A Soft Tissue Mass - Simple Excision (except lipoma) (LEFT AXILLARY MASS) B Soft Tissue Mass - Simple Excision (except lipoma) (RIGHT AXILLARY MASS) Procedures: HE Stain/3, Gross/Micro L5/2 Age/ Patient Sex Location Account Attending Physician Marcia Izquierdo /F [place] [id number] José Miguel Garcia MD SPEC NUM: [id number] RECD: 03/26/22 STATUS: FLO JAMES NUM: [id number] JUANA: 03/26/[address]: José Miguel Garcia MD ENTERED: 03/26/[address] [facility] [address]: SPEC TYPE: Surgical DEPT: S ENTERED BY: [id number] RECV BY: [id number] ORDERED: HE Stain/3, Gross/Micro L5/2 ORDERED: HE [...] x 3.7 x 1.2 cm aggregate of benson-prakash, rubbery tissue and skin with yellow, lobular, focally hyperemic cut surfaces. Insole Stiffener sections are submitted in one cassette labeled A1. (SEUN/GENIA) B. Received in 10% neutral buffered formalin, labeled with the patient's name and right axillary mass is a 2.5 x 1.2 cm ellipse of benson-prakash, centrally ulcerated skin excised to a depth of 1.1 cm. The specimen is entirely submitted in 2 cassettes as follows: B1 - Central lesional area B2 - Radial tips (SEUN/JS) Specimen: [id number] Received: 03/26/22 Status: BETHBrooklynn James Num: [id number] Spec Type: Surgical Subm Dr: José Miguel Garcia MD Tissues: A Soft Tissue Mass - Simple Excision (except lipoma) (LEFT AXILLARY MASS) B Soft Tissue Mass - Simple Excision (except lipoma) (RIGHT AXILLARY MASS) Procedures: HE Stain/3, Gross/Micro L5/2 Patient: Marcia Izquierdo [id number] (Continued) Specimen: [id number] Received: 03/26/22 (Continued) Signed (signature on file) Yolanda Jones MD 03/27/22 1843 Specimen: [id number] Received: 03/26/22 Status: FLO James Num: [id number] Spec Type: Surgical Subm Dr: José Miguel Garcia MD Tissues: A Soft Tissue Mass - Simple Excision (except lipoma) (LEFT AXILLARY MASS) B Soft Tissue Mass - Simple Excision (except lipoma) (RIGHT AXILLARY MASS) Procedures: HE Stain/3, Gross/Micro L5/2 Patient: Marcia Izquierdo [id number] (Continued) Specimen: [id number] Received: 03/26/22 (Continued) Microscopic Description A. One glass slide with H E stained material has been examined. The microscopic findings support the above pathologic diagnosis. B. Two glass slides with H E stained material have been examined. The microscopic findings support the above pathologic diagnosis. [id number] Specimen: [id number] Received: 03/26/22 Status: FLO James Num: [id number] Spec Type: Surgical Subm Dr: José Miguel Garcia MD Tissues: A Soft Tissue Mass - Simple Excision (except lipoma) (LEFT AXILLARY MASS) B Soft Tissue Mass - Simple Excision (except lipoma) (RIGHT AXILLARY MASS) Procedures: HE Stain/3, Gross/Micro L5/2 Patient: Marcia Izquierdo [id number] (Continued) Signed (signature on file) Yolanda Jones MD 03/27/22 1843 [facility] CenterCOVID[facility]19 [facility] [place]on 12-03-3581HMGV-CoV-2 (COVID-19) RNA REZA+probe Ql (Unsp spec)NegativeNormalNegativeOur Lady Of Mercy Hospital - AndersonComment on above:Order Comment: Healthcare Worker?: NResult Comment: Testing for SARS-CoV-2 by RT-PCR This test was developed and its performance characteristics determined by [employer]) and validated at the [facility]. This test has not been FDA cleared [...] is terminated or revoked sooner. PERFORMED BY: [facility] [address] [place] [address] PATHOLOGIST SPECIALIST MANAGERS YOLANDA JONES M.D.Performed By: #### COVID 19 [facility] [place] #### [facility] [address] [place] [id number] USACOVID-19 Positive/NegativeOrdered By: José Miguel Garcia on 64-84-4082IVSU-CoV-2 (COVID-19) N gene REZA+probe Ql (Resp)NegativeNegative [facility] - AndersonComment on above:Testing for SARS-CoV-2 by RT-PCR This test was developed and its performance characteristics determined by [employer] ([employer]) and validated at the [facility]. This test has not been FDA cleared [...] of time the declaration that circumstances exist ju stifying the authorization of the emergency use of in vitro diagnostic tests for detection of SARS-CoV-2 virus and/or diagnosis of COVID-19 infection under section 564(b)(1) of the Act, 21 U.S.C. 360bbb-3(b)(1), unless the authorization is terminated or revoked sooner.CHLAMYDIA/N. GONORRHOEAE RNA, TMA, UROGENITALon 53-73-1984PXDOBXWNZ TRACHOMATIS RNA, TMA, UROGENITALNot detectedNormalNOT DETECTEDQuest DiagnosticsComment on above:Performed By: #### 395, 38445, 15805 #### [facility] [address], [address] [place] [id number] [employer]: Boubacar Wilson MDCOMMENTNormalQuest DiagnosticsComment on above:Result Comment: The analytical performance characteristics of this assay, when used to test SurePath(TM) specimens have been determined by [employer]. The modifications have not been cleared or approved by the FDA. This assay has been validated pursuant to the CLIA regulations and is used for clinical purposes. For additional information, please refer to https://Trendlr.Yovia/faq/EAO600 (This link is being provided for information/ educational purposes only.)Performed By: #### 395, 99703, 21645 #### [facility] [address], [address] [place] [address] [employer]: Boubacar Wilson MDNEISSERIA GONORRHOEAE RNA, TMA, UROGENITALNot detectedNormalNOT DETECTEDQuest DiagnosticsComment on above:Performed By: #### 395, 11923, 71780 #### [facility] [address], [address] [place] [address] [employer]: Boubacar Wilson MDCULTURE, URINE, ROUTINEon 97-54-7750Ddrsllpr identified Cx Nom (U)SEE NOTENormalQuest DiagnosticsComment on above:Result Comment: CULTURE, URINE, ROUTINE Micro Number: [id number] Test Status: Final Specimen Source: Urine Specimen Quality: Adequate Result: Mixed genital trent isolated. These superficial bacteria are not indicative of a urinary tract infection. No further organism identification is warranted on this specimen. If clinically indicated, recollect clean-catch, mid-stream urine and transfer immediately to Urine Culture Transport Tube.Performed By: #### 395, 15119, 34709 #### [facility] [address], [address] [place] [address] [employer]: Boubacar Wilson MDSURESWAB(R) TRICHOMONAS VAGINALIS RNA, QL, TMA on 06-32-0980VTTWGIRC(R) TRICHOMONAS VAGINALIS RNA, QL, TMANot detectedNormalNOT DETECTEDQuest DiagnosticsComment on above:Result Comment: For additional information, please refer to [email or web address].Yovia/ faq/Trichomonastma (This link is being provided for informational/ educational purposes only.)Performed By: #### 395, 17271, 81050 #### [facility] [address], [address] [place] [address] [employer]: Boubacar Wilson MD Vital Signs Date TimeVital SignValuePerforming PeqxqlkjgOvoimtzu62-63-4378 11:38-0400Body dboqda421.9 cmDennis Furlong DO Work Phone: [facility]10-27-2025 11:38-0400Body mass index (BMI) [Ratio]46.16 kg/w1Jjrgsp Furlong DO Work Phone: [facility]10-27-2025 11:38-0400Body pnqtatjxwbw80.71 [degF]Nelson Chandlerlong DO Work Phone: [facility]10-27-2025 11:38-0400Body nfxifg637.4 kgDennis Geraldinelong DO Work Phone: [facility] Cglyuv14-82-4559 11:38-0400Diastolic blood xkvitdoq86 mm[Hg]Nelson Chandlerlong DO Work Phone: [facility]10-27-2025 11:38-0400Heart rate 89 /minDkerrieis Furlong DO Work Phone: [facility] HospitalCon[facility] Inbox10-27-2025 11:38-0400 Respiratory rate20 /minDkerrieis Geraldinelong DO Work Phone: [facility] Hospital[facility] Inbox10-27-2025 11:38-6563DbG5% (BldA) [Mass fraction]97 %Nelson Furlong DO Work Phone: [facility]10-27-2025 11:38-0400Systolic blood mm[Hg]Nelson Furlong DO Work Phone: [facility] HospitalCortex [facility] Solutions Wxjlwl86-79-5920 16:41-0400Body gnyywi285.9 cmDennis Geraldinelong DO Work Phone: [facility] [facility]-13-2025 16:41-0400Body mass index (BMI) [Ratio]45.67 kg/a7Vehinc Furlong DO Work Phone: [facility]10-13-2025 16:41-0400Body khfejojjqfs36.91 [degF]Nelson Chandlerlong DO Work Phone: [facility]10-13-2025 16:41-0400Body tsedde074.77 kgDenalexandra Chandlerlong DO Work Phone: [facility]10-13-2025 16:41-0400Diastolic blood hcsxakec91 mm[Hg]Nelson Chandlerlong DO Work Phone: [facility]10-13-2025 16:41-0400Heart rate 91 /Darshanis Geraldinelong DO Work Phone: [facility]10-13-2025 16:41-0400 Respiratory rate20 /minDkerrieis Geraldinelong DO Work Phone: [facility]10-13-2025 16:41-5808BlC1% (BldA) [Mass fraction]95 %Nelson Chandlerlong DO Work Phone: [facility]10-13-2025 16:41-0400Systolic blood joliozte274 mm[Hg]Nelson Chandlerlong DO Work Phone: [facility]09-08-2025 16:24-0400Body bffuqk457.9 cmCoreshamika FieldsXiomara DO Work Phone: [facility] CenterXjmccmfdfn92-57-9588 16:24-0400Body mass index (BMI) [Ratio]45.43 kg/o2Halkm Xiomara DO Work Phone: [facility] CenterYdkojjitvr45-12-4758 16:24-0400Body mvqece538.96 kgCorey Xiomara DO Work Phone: [facility] CenterRcvlotcbnj45-80-8396 16:24-0400Diastolic blood arnyapkz11 mm[Hg]Wojciech Xiomara DO Work Phone: [facility] CenterWtxrxmggfw09-65-9881 16:24-0400Systolic blood dzltwxxo589 mm[Hg]Wojciech Santoso DO Work Phone: [facility] CenterZmzsvtgcgn81-38-3483 10:55-0400Body grzkit514.9 cmPili Garrettzer TIME CLOCK INSPECTOR-CLASP MACHINE OPERATOR Work Phone: [facility] [employer] Pdisgu33-64-8987 10:55-0400Body mass index (BMI) [Ratio]47.46 kg/m2Pili Garrettzer TIME CLOCK INSPECTOR-CLASP MACHINE OPERATOR Work Phone: [facility] Dzmnjo72-03-3291 10:55-0400Body fzukqvtenxw76.81 [degF]Pili Garrettzer TIME CLOCK INSPECTOR-CLASP MACHINE OPERATOR Work Phone: [facility] [employer] Leccwv08-98-5138 10:55-0400Body elcuqu088.76 kgPili Garrettzer TIME CLOCK INSPECTOR-CLASP MACHINE OPERATOR Work Phone: [facility] [employer] Crasjd46-04-8344 10:55-0400Diastolic blood mm[Hg]Pili Garrettzer TIME CLOCK INSPECTOR-CLASP MACHINE OPERATOR Work Phone: [facility] Cxfvgr13-57-4840 10:55-0400Heart rate 85 /minPili Garrettzer TIME CLOCK INSPECTOR-CLASP MACHINE OPERATOR Work Phone: [facility] [employer] Dfmsgc79-45-5872 10:55-0400 Respiratory rate18 /minPili Garrettzer TIME CLOCK INSPECTOR-CLASP MACHINE OPERATOR Work Phone: [facility] [employer] Tvwfwf34-12-7978 10:55-6680JwF8% (BldA) [Mass fraction]98 %Pili Garrettzer TIME CLOCK INSPECTOR-CLASP MACHINE OPERATOR Work Phone: [facility] [employer] Vajuoy64-66-8768 10:55-0400Systolic blood unlkklzt420 mm[Hg]Pili Garrettzer TIME CLOCK INSPECTOR-CLASP MACHINE OPERATOR Work Phone: [facility] Ojqqlm13-00-5826 08:26-0400Body vngazx639.9 cmDenalexandra Chandlerlong DO Work Phone: [facility] [employer] Lbljth60-53-9305 08:26-0400Body mass index (BMI) [Ratio]47.51 kg/y8Cugzjh Geraldinelong DO Work Phone: [facility] [employer] Aoeowa11-94-0349 08:26-0400Body mvjjlujrcgl15.49 [degF]Nelson Chandlerlong DO Work Phone: [facility] [employer] Rkdbry42-33-6231 08:26-0400Body hmabqh202.94 kgDenalexandra Chandlerlong DO Work Phone: [facility] [employer] Moegvi31-67-0363 08:26-0400Diastolic blood aiydkifi43 mm[Hg]Nelson Hanksng DO Work Phone: [facility] [employer] Deyllu79-91-0024 08:26-0400Heart rate 91 /Jackie Chandlerlong DO Work Phone: [facility]05-21-2025 08:26-0400 Respiratory rate18 /minDkerrieis Geraldinelong DO Work Phone: [facility]05-21-2025 08:26-9013OkR3% (BldA) [Mass fraction]97 %Nelson Chandlerlong DO Work Phone: [facility] [employer] Ugtokv03-75-7442 08:26-0400Systolic blood ysxvybco230 mm[Hg]Nelson Hanksng DO Work Phone: [facility] [employer] Ynubxb48-77-4035 11:13-0400Body jhzhyd626.9 cmJessica العراقيuch TIME CLOCK INSPECTOR-CLASP MACHINE OPERATOR Work Phone: [facility]05-02-2025 11:13-0400Body mass index (BMI) [Ratio]47.67 kg/x6LbtstmJessica العراقيuch TIME CLOCK INSPECTOR-CLASP MACHINE OPERATOR Work Phone: [facility] [employer] Zaymsg76-90-0144 11:13-0400Body dscypabybob14.1 [degF]Jessica ESPINOZA Work Phone: [facility] Aniqci33-48-5716 11:13-0400Body jondaf278.49 kgJessica ESPINOZA Work Phone: [facility] Qokbch33-32-0506 11:13-0400Diastolic blood kqxumawb15 mm[Hg]Jessica ESPINOZA Work Phone: [facility] Epaooy00-59-3869 11:13-0400Heart rate 87 /minBrcarlin ESPINOZA Work Phone: [facility] Nyebwy42-61-4721 11:13-0400 Respiratory rate20 /minJessica ESPINOZA Work Phone: [facility] Zzigrq13-22-5681 11:13-5750AjH2% (BldA) [Mass fraction]97 %Jessica ESPINOZA Work Phone: [facility] [employer] Rwfofz27-13-5488 11:13-0400Systolic blood mm[Hg]Jessica ESPINOZA Work Phone: [facility] [employer] Rqufhz64-06-0713 11:25-0400Body xwosxg446.9 cmNelson Mcclure DO Work Phone: [facility] Atgfsx15-71-6155 11:25-0400Body mass index (BMI) [Ratio]49.34 kg/e0SnqvhyNelson Mcclure DO Work Phone: [facility] Hnvuyi30-56-8641 11:25-0400Body tipgakgecci87.1 [degF]Nelson Mcclure DO Work Phone: [facility] Claxxx64-99-8803 11:25-0400Body metaqd303.02 kgDenalexandra Mcclure DO Work Phone: [facility] Sviuef20-72-4465 11:25-0400Diastolic blood izyvrmax39 mm[Hg]Nelson Mcclure DO Work Phone: [facility] [employer] Igdeup51-30-3701 11:25-0400Heart rate 92 /Jackie Mcclure DO Work Phone: [facility] [employer] Cyfwoy33-37-0309 11:25-0400 Respiratory rate18 /Jackie Hanksng DO Work Phone: [facility]04-21-2025 11:25-3625ReF3% (BldA) [Mass fraction]97 %Nelson Mcclure DO Work Phone: [facility] [employer] Oxfinn04-99-9241 11:25-0400Systolic blood nakwhdoi715 mm[Hg]Nelson Mcclure DO Work Phone: [facility]08-12-2024 10:43-0400Body mhmuvc226.9 cmJuhuang Stoll MD Work Phone: [phone]08-12-2024 10:43-0400Body mass index (BMI) [Ratio]49.64 kg/w5QzlbstlwRos Stoll MD Work Phone: [phone]08-12-2024 10:43-0400Body rfoblw830.02 kgRos Stoll MD Work Phone: [phone]08-12-2024 10:43-0400Diastolic blood nvehdjil82 mm[Hg]Ros Stoll MD Work Phone: [phone]08-12-2024 10:43-0400Heart rate75 /min Ros Stoll MD Work Phone: [phone]08-12-2024 10:43-0400Systolic blood kjlvwugp831 mm[Hg]Ros Stoll MD Work Phone: [phone]07-28-2022 10:50-0400Diastolic blood zbgszmxe50 mm[Hg]MD José Miguel Garcia Work Phone: [phone]07-28-2022 10:50-0400 Heart rate92 /minMD José Miguel Garcia Work Phone: [phone])[address] [place], [place] 5300207-28-2022 10:50-0400 Respiratory rate16 /minMD José Miguel Garcia Work Phone: [phone] [place], [place] 5300207-28-2022 10:50-0400 SaO2% (BldA) [Mass fraction]99 %MD José Miguel Garcia Work Phone: [phone] [place], [place] 5300207-28-2022 10:50-0400 Systolic blood aiwouosv094 mm[Hg]MD José Miguel Garcia Work Phone: [phone])[address] [place], [place] 5300207-28-2022 10:06-0400 Inhaled oxygen flow rate6 L/minMD José Miguel Garcia Work Phone: [phone] [place], [place] 5300207-28-2022 08:42-0400 Body erwuxa877.88 cmMD José Miguel Garcia Work Phone: [phone] [place], [place] 5300207-28-2022 08:42-0400 Body mass index (BMI) [Percentile] Per age and sex99.1 %MD José Miguel Garcia Work Phone: [phone] [place], [place] 5300207-28-2022 08:42-0400 Body mass index (BMI) [Ratio]46.7 kg/m2MD José Miguel Garcia Work Phone: [phone])[facility] [place], [place] 7825307-28-2022 08:42-0400 Body poxfxv622.48 kgMD José Miguel Garcia Work Phone: [phone] [place], [place] 5300207-28-2022 07:27-0400 Body tkzywtedlbu47.4 [degF]MD José Miguel Garcia Work Phone: [phone] [place] [address] Encounters Encounter DateEncounter TypeCare ProviderFacilityStart: 07-03-2025 End: 69-85-2699Qzpget flowsheetCorey Xiomara DO Work Phone: [facility]BGYNStart: 07-03-2025 End: 13-54-2292Oofusf flowsheetCorey Xiomara DO Work Phone: [facility] OBGYNStart: 06-25-2025 End: 00-70-2171ayzskyvuscYHKELYPender [facility] Ambulatory PPGStart: 06-25-2025 End: 55-46-8672Ofjufv outpatient visit 15 minutesDennis G Furlong DO Work Phone: [facility] Physicians Internal Medicine - Family MedicineComment on above:Type 2 diabetes mellitus without complication, without long-term current use of insulin ([facility]) (Primary Dx); Morbid obesity ([facility]); BMI 45.0-49.9, adult ([facility])Start: 06-11-2025 End: 90-96-3043Smeqgy outpatient visit 15 minutesDennis Qasim Furlong DO Work Phone: [facility] Physicians Internal Medicine - Family MedicineComment on above:Dental infection (Primary Dx)Start: 06-11-2025 End: 33-44-3801apiafswideJFDKLIPender [facility] Hospital Ambulatory PPGStart: 05-07-2025 End: 49-77-3902sbwnmchnvvLKDLG FAZIONot AvailableStart: 05-07-2025 End: 85-83-4382Qgjunj outpatient visit 15 minutesCorey Xiomara DO Work Phone: [facility] OBGYNComment on above:PCOS (polycystic ovarian syndrome); Female infertilityStart: 05-07-2025 End: 57-31-9559Qonzrm flowsheetCorey Xiomara DO Work Phone: [facility]BGYNStart: 05-07-2025 End: 49-77-1105Ympoyo flowsheetCorey Xiomara DO Work Phone: [facility]BGYNStart: 04-09-2025 End: 86-98-4852Dylagn OnlyDennis G Furlong DO Work Phone: [facility] Internal Medicine - Family MedicineComment on above:Type 2 diabetes mellitus without complication, without long-term current use of insulin ([facility]) (Primary Dx)Start: 03-22-2025 End: 17-47-8041lxbaxtijqwBBTH D [facility] Ambulatory PPGStart: 03-22-2025 End: 50-86-9645Gwpxnr outpatient visit 25 minutesPili Glover TIME CLOCK INSPECTOR-CLASP MACHINE OPERATOR Work Phone: [facility] - Family MedicineComment on above:Type 2 diabetes mellitus without complication, without long-term current use of insulin ([facility]) (Primary Dx); Morbid obesity ([facility])Start: 01-17-2025 End: 36-35-8106Zvaanf outpatient visit 15 minutesNelson Mcclure DO Work Phone: [facility] Internal Medicine - Family MedicineComment on above:Type 2 diabetes mellitus without complication, without long-term current use of insulin ([facility]) (Primary Dx); Morbid obesity ([facility])Start: 01-17-2025 End: 27-14-8174umhclkvuuwPAWEGV G FURHigh[facility] Ambulatory PPGStart: 01-04-2025 End: 09-30-6016Ufieqg Tyree Hanksng DO Work Phone: [facility] Internal Medicine - Family MedicineStart: 12-29-2024 End: 90-88-4137gizesbagfpVLBWYOStony [facility] Ambulatory PPGStart: 12-29-2024 End: 89-52-7438Yfyzgq outpatient visit 15 minutesBrcarlin Monreal Jaymie TIME CLOCK INSPECTOR-CLASP MACHINE OPERATOR Work Phone: [facility] Internal Medicine - Family MedicineComment on above:Breast lump on right side at 7 o'clock position (Primary Dx)Start: 12-21-2024 End: 03-09-8749Sxsgjl Tyree Hanksng DO Work Phone: [facility] Internal Medicine - Family MedicineStart: 12-19-2024 End: 35-13-9021Yyqqeoqx SupportNelson Mcclure DO Work Phone: [facility] Internal Medicine - Family MedicineComment on above:Insulin resistance (Primary Dx)Start: 12-18-2024 End: 16-99-4031bfzwnpeujtHCLYNH G [facility] HospitalStart: 18-30-4939Hmqyypopb for general adult medical examination without abnormal findingsFisher-Titus Medical Center HospitalStart: 12-18-2024 End: 09-18-7938otdlctyhumIVFKIQMercy Regional Medical Center Ambulatory PPGStart: 89-94-3106Psohtfqlt for general adult medical examination without abnormal findingsRose [facility] Ambulatory PPGStart: 12-18-2024 End: 63-45-7063Ygwlfii encounter statusNelson Mcclure DO Work Phone: [facility] SystemStart: 12-18-2024 End: 70-06-0716Siwujzna preventive med est patient 18-39 yrsNelson Mcclure DO Work Phone: [facility] Internal Medicine - Family MedicineComment on above:Well adult exam (Primary Dx); Mild intermittent asthma without complication; Morbid obesity ([facility]); Hidradenitis suppurativaStart: 08-29-2024 End: 91-16-3401DmburaCcgpjxyjRos Stoll MD Work Phone: [facility] Endocrinology InfertilityComment on above:Refill RequestStart: 08-07-2024 End: 28-12-5110P-mail encounter from caregiverRos Stoll MD Work Phone: [facility]in[facility] InfertilityStart: 08-07-2024 End: 87-52-8763Jcmnktf encounter procedureRos Stoll MD Work Phone: [facility] Endocrinology InfertilityComment on above:Appointment Cancellation RequestStart: 05-02-2024 End: 50-35-5033ipitlzeonlZlyupvmjLaura Stoll MD Work Phone: [facility]ocrinology InfertilityStart: 05-02-2024 End: 91-59-6087Vxbfohe encounter procedureRos Stoll MD Work Phone: Reproductive Endocrinology InfertilityComment on above:LetrozoleStart: 04-10-2024 End: 99-66-3138atnjjnkamoCJMDLVPH TANTIBHEDHYANGKULFacility:[facility] HospitalStart: 04-10-2024 End: 14-90-1222ertanmxgiwWHKHWldxrncy:[facility] HospitalStart: 04-10-2024 End: 31-35-0038Qcgmcgp encounter procedureRos Stoll MD Work Phone: Reproductive Endocrinology InfertilityComment on above:Irregular menses (Primary Dx); Secondary amenorrhea; PCOS (polycystic ovarian syndrome)Start: 09-28-2023 End: 78-09-4310Rexo/qhp telephone evaluation 5-10 Shraddha Hernandez MD Work Phone: [facility] OBComment on above:Insulin resistance (Primary Dx); Abnormal vaginal bleeding; Female fertility problem; HirsutismStart: 02-02-2023 End: 09-92-9083uhgtayhykjPHGKFYQG E [facility] HospitalStart: 02-02-2023 End: 14-82-3412Gkiwtgqrdq hospital visit by physicianMarissa [facility] CenterHZ Laboratory Comment on above:Screen for STD (sexually transmitted disease)Start: 12-20-2022 End: 83-79-2429imauvfvejgBI NELSON Tripp FURLONGFacility:H1Pfleh: 03-26-2022 End: 22-06-6997Denfkokzm to same day surgery centerMD José Miguel Garcia Work Phone: [facility] CampusStart: 03-24-2022 End: 01-15-8693Xxhlvka encounter procedureMD José Miguel Garcia Work Phone: [facility]-Pre-Surgical Testing Procedures DateProcedureProcedure DetailPerforming ClinicianStart: 82-03-7217Vntpb depression screening assessmentDenalexandra Chandlerlong DO Work Phone: Start: 31-54-8207Zvllsidjbz glycosylated g7jCuwses Glover TIME CLOCK INSPECTOR-CLASP MACHINE OPERATOR Work Phone: Start: 16-67-1614Hedab depression screening assessment Pili Glover TIME CLOCK INSPECTOR-CLASP MACHINE OPERATOR Work Phone: Start: 00-87-6945Qlemxare retinal eye examDenalexandra Chandlerlong DO Work Phone: Start: 48-22-9980Jfiwt depression screening assessment Nelsonalexandra Chandlerlong DO Work Phone: Start: 88-66-7727Lyzgt depression screening assessment Jessica Wallace TIME CLOCK INSPECTOR-CLASP MACHINE OPERATOR Work Phone: Start: 05-77-7002Pzbzmjnqjj glycosylated r7yIufpwr G Furlong DO Work Phone: Start: 52-99-9880Cermk depression screening assessment Nelson Hanksng DO Work Phone: Start: 26-68-0709Ywsdmx of axillary lymph nodeMD José Miguel Garcia Work Phone: Plan of Treatment DateCare ActivityDetailAuthorStart: 06-48-8903Czkyt BMI ScreeningAdult BMI ScreeningProOhiohealth [facility] SystemStart: 88-22-5964Iwimsjbucn ScreeningDepression ScreeningProChoctaw [facility] Hospital Health SystemStart: 87-55-5952Nxmebtth foot examination Diabetic Foot ExamProChoctaw [facility] Hospital Health SystemStart: 16-61-1223Bklgyag Screening Tobacco ScreeningProChoctaw General Hospital Health SystemStart: 55-25-2090Ydfsk BMI Screening Adult BMI ScreeningChillicothe [facility] SystemStart: 79-63-9794Natgjdwrzm Screening Depression ScreeningChillicothe VA Medical Center SystemStart: 40-22-0620Ckdqniy Screening Tobacco ScreeningProOhiohealth [facility] SystemStart: 18-61-6933Rjwejwyf screening Diabetic Ophthalmology ExamProChoctaw General Hospital Health SystemStart: 33-23-7745Oreuh BMI ScreeningAdult BMI ScreeningProMedica Health SystemStart: 98-66-2233Humzylcfuc ScreeningDepression ScreeningProMercy Health [facility] Hospitalca Health SystemStart: 42-45-8502Fhgvrds ScreeningTobacco ScreeningProMercy Health Defiance Hospitalca Health SystemStart: 83-55-1982Yelwl BMI ScreeningAdult BMI ScreeningProMercy Health Defiance Hospitalca Health SystemStart: 06-33-3252Nzcqnbrzyb ScreeningDepression ScreeningProMercy Health Defiance Hospitalca Health SystemStart: 31-00-1916Pfvqzow ScreeningTobacco ScreeningProMercy Health Defiance Hospitalca Health SystemStart: 12-24-2025 End: 01-25-3536Akloolo encounter bgtsojwzr03/27/2026 10:00 AM EDT Office Visit [facility] [address] [place] [address] Nelson Mcclure, DO [address] [place] [address] [facility]art: 86-59-4943Aqoyt BMI ScreeningAdult BMI ScreeningProMercy Health Defiance Hospitalca Health SystemStart: 47-67-2022Osssiaqcff ScreeningDepression ScreeningProMercy Health Defiance Hospitalca [facility] SystemStart: 55-63-7914Opbulxr ScreeningTobacco ScreeningWVUMedicine [facility] Community Hospitalca [facility] SystemStart: 07-03-2025 End: 24-46-4593Nbryczj encounter vykzwapfa56/04/2025 2:40 PM EST Procedure Visit [facility] Kalee MARVIN [address] [place] [address] Wojciech Solano DO [address] [place] [address] NOMShereen UGARTEtart: 06-25-2025 End: 27-63-6211Aljnrcd encounter givlpyclu83/27/2025 11:30 AM EDT Office Visit [facility] - [facility] [address] [place] [address] Nelson Mcclure, DO [address], [address] [place] [address] [facility] MedicineStart: 53-11-8705IZKDR-19 Vaccine ( season)COVID-19 Vaccine ( season)[facility] Start: 54-44-7593Iqofydamr vaccinationChillicothe [facility] Medical Center SystemStart: 03-22-2025 End: 16-03-3142Ydabvni encounter tbmvcumqq51/24/2025 10:45 AM EDT Office Visit [facility] [address] [place] [address] Nelson Mcclure DO [address] [place] [place] [address] [facility] MedicineStart: 01-17-2025 End: 33-19-2082Haworyv encounter /21/2025 8:30 AM EDT Office Visit [facility] [address] [place] [address] Nelson Mcclure DO [address], [facility] [place] [address] [facility] MedicineStart: 12-29-2024 End: 98-50-8725XN Breast - right limitedUltrasound breast limited right Imaging Routine Breast lump on right side at 7 o'clock position Expected: 12/29/2024, Expires: 12/29/2025[facility] Work Phone: Comment on above:Expected: 12/29/2024, Expires: 12/29/2025Start: 08-14-2024 End: 54-70-9710Inavqwo encounter /16/2024 9:30 AM EST Office Visit [facility] [address] [place] [address] Ros Stoll MD [address] [place] [address] Benson in 4 month.. Reproductive Endocrinology InfertilityComment on above:Meet with Dr. Benson in 4 month..Start: 06-05-2024 End: 70-32-1751Qgmszbb encounter fbdpihsja34/07/2024 8:00 AM EDT Office Visit [facility] [address] [place] [address] Bree Altman, TIME CLOCK INSPECTOR.CLASP MACHINE OPERATOR [address] [place] [address] Return in about 6 weeks (around 05/22/2024) for meet with bree to discuss about letrozole in 6-8 weeks Reproductive Endocrinology InfertilityComment on above:Return in about 6 weeks (around 05/22/2024) for meet with bree to discuss about letrozole in 6-8 weeks Start: 05-04-2024 End: 88-90-7497Qwlflusarrid [Mass/volume] in Serum or PlasmaPROGESTERONE Lab Routine Anovular Expected: 05/04/2024, Expires: 08/03/2024[facility] Work Phone: Comment on above:Expected: 05/04/2024, Expires: 08/03/2024Start: 06-36-0773SFUGK-19 Vaccine ()COVID-19 Vaccine ()[facility] SystemStart: 65-17-4055Txsfv-19 Vaccine ()Covid-19 Vaccine ()[facility]: 07-95-5134Xxdbq-19 Vaccine ()Covid-19 Vaccine ( season)[facility]: 50-08-4437Tvtgjjugo vaccinationInfluenza Vaccine (#1)[facility] Hospitaltart: 64-56-5194ZIrR,Tdap and Td Vaccines (7 - Td or Tdap) DTaP,Tdap and Td Vaccines (7 - Td or Tdap)[facility] SystemStart: 17-64-7005QMwM/Tdap/Td vaccine (7 - Td or Tdap)DTaP/Tdap/Td vaccine (7 - Td or Tdap)[facility]: 38-33-1806Lxxqs microalbumin profile DTaP,Tdap,Td Vaccine (7 - Td or Tdap)[facility] Hospitaltart: 17-59-6676Zvivrxrjpy ScreenDepression ScreenB[facility] EAST LIVERPOOL CITY [facility]OSPITALStart: 21-13-1028Dhcoohvtm for Chlamydia trachomatisChlamydia ScreeningProBrown Memorial Hospitaltart: 12-07-2023 End: 46-27-8045Agtzyrt encounter hmiihslpm67/09/2024 Office Visit Obstetrics and Gynecology Monse Spicer, KRYSTEN - CN [address] [place], [place] [id number] [facility] OBSTETRICS & GYNECOLOGY [facility]: 26-86-1332Zlflukdda for malignant neoplasm of cervixBrown Memorial Hospitaltart: 10-27-2023 End: 27-79-8189Rtnlzhu encounter erttzpowi42/28/2024 3:00 PM EST Office Visit [facility] [address] [place] [address] Annalisa Hernandez MD [address] [place] [address] [facility] OBStart: 10-27-2023 End: 67-18-5774Wzibwpkjjrfy / ancillary services jpijxmfvtm58/28/2024 2:00 PM EST Ancillary Procedure [facility] [address] [place] [address] [facility] OBStart: 26-24-7404Xgyngwjdf vaccination Influenza Vaccine (#1)[facility] HealthcareStart: 79-13-1316Kkcciwcvp vaccinationFlu vaccine (Season Ended)[facility]ALSStart: 04-41-8222HnrefuuypC[facility] Clinic [facility] Work Phone: start: 07-47-6479LxylxoeqdCleveland Clinic [facility]ina Hospital Work Phone: Start: 01-56-5795Nofrmireh B Vaccines (1 of 3 - 19+ 3- dose series)Hepatitis B Vaccines (1 of 3 - 19+ 3-dose series)[facility] Start: 83-88-7396XTHJN-19 Vaccine (5 - Booster)COVID-19 Vaccine (5 - Booster)[facility]ALSStart: 37-48-8985Sfxvw BMI Follow Up PlanAdult BMI Follow Up PlanUNC Health Rextart: 75-07-1218Jcepnip ScreeningAnxiety ScreeningBrown Memorial Hospitaltart: 69-66-5769Ssiyobbats ScreeningDepression ScreeningBrown Memorial Hospitaltart: 69-61-4976Qcuhlbtc foot examinationDiabetic Foot ExamUNC Health Rextart: 19-99-3053NN (Gonorrhea) Screening (18-24)GC (Gonorrhea) Screening (18-24)[facility] Hospitaltart: 94-18-5190Exeuluenh C screeningBON EAST LIVERPOOL CITY HOSPITALStart: 35-62-9652QJU screeningHIV Screening [facility] Hospitaltart: 92-07-3320Znwrwkmve for Chlamydia trachomatisChlamydia Screening (18-24)[facility] Hospitaltart: 83-31-1450Hifusmiuengrq B Vaccine (1 of 2 - Standard)Meningococcal B Vaccine (1 of 2 - Standard)[facility] CenterStart: 02-80-8863Ctyslagwnmzar B Vaccine: Consider Based On Risk (1 of 2 - Patient Seeks Protection)Meningococcal B Vaccine: Consider Based On Risk (1 of 2 - Patient Seeks Protection)[facility] Hospitaltart: 40-18-3883Esgcosrcx for Chlamydia trachomatisChlamydia/GC screenBON EAST LIVERPOOL CITY HOSPITALStart: 85-78-3306ADH screeningHIV screenBON EAST LIVERPOOL CITY HOSPITALStart: 22-67-8103JTX Vaccine (1 - 3-dose series)HPV Vaccine (1 - 3-dose series)[facility] Hospitaltart: 78-83-6159NTJ Vaccines (1 - 3-dose series)HPV Vaccines (1 - 3-dose series)[facility] CenterStart: 27-73-2916Glfy To Adult Transition Annual AssessmentPeds To Adult Transition Annual AssessmentBrown Memorial Hospitaltart: 31-00-6358Kyhgugw of varicella vaccinationVaricella Vaccines (1 of 2 - 13+ 2-dose series)[facility] HealthcareStart: 70-20-2477Daqr To Adult Transition Initial DiscussionPeds To Adult Transition Initial DiscussionBrown Memorial Hospitaltart: 15-30-9065RVY vaccine (1 - 2-dose series)HPV vaccine (1 - 2-dose series)[facility]ITALStart: 79-85-2585PHmJ/Tdap/Td Vaccines (1 - Tdap)DTaP/Tdap/Td Vaccines (1 - Tdap)[facility] HealthcareStart: 34-69-3993FKY Vaccines (1 of 1 - Standard series)MMR Vaccines (1 of 1 - Standard series)[facility] CenterStart: 64-87-1441Mbhrhgbx screening Diabetic Ophthalmology ExamUNC Health Rextart: 04-13-7099Huezj screening for proteinUrine MicroalbuminHenry County Hospital End: 02-02-2023.trachomatis N.gonorrhoeae DNA, UrineBON EAST LIVERPOOL CITY [facility]OSPITAL Work Phone: Comment on above:1 Occurrences starting 02/02/2023 until 02/02/2023 End: 21-43-6240Fpevojekuqnyh metabolic 2000 panel - Serum or PlasmaComprehensive metabolic panel Lab Routine [facility] adult exam 1 Occurrences starting 12/18/2024 until 12/18/2025[employer] Work Phone: Comment on above:1 Occurrences starting 12/18/2024 until 12/18/2025 End: 71-67-0731Dasyw 1996 panel - Serum or PlasmaLipid profile Lab Routine [facility] adult exam 1 Occurrences starting 12/18/2024 until 12/18/2025[facility] SystemComment on above:1 Occurrences starting 12/18/2024 until 12/18/2025 End: 30-29-5314Qpcxeyphqgcl - Albumin: Creatinine Urine RatioMicroalbumin - Albumin: Creatinine Urine Ratio Lab Routine Type 2 diabetes mellitus without complication, without long-term current use of insulin ([facility]) 1 Occurrences starting 01/17/2025 until 01/17/2026[employer] Work Phone: Comment on above:1 Occurrences starting 01/17/2025 until 01/17/2026Microalbumin - Albumin: Creatinine Urine RatioMicroalbumin - Albumin: Creatinine Urine Ratio Lab Routine Type 2 diabetes mellitus without complication, without long-term current use of insulin ([facility]) 01/17/2025 8:56 AM [facility] CenterPatient EducationStitches and Lucille Hydrocodone and AcetaminophenCenterville Ctr Work Phone: Patient referralCenterville Ctr Work Phone: End: 31-27-6736APX with ReflexTSH with Reflex Lab Routine Morbid obesity ([facility]) 1 Occurrences starting 12/18/2024 until 12/18/2025[facility] Comment on above:1 Occurrences starting 12/18/2024 until 12/18/2025 Immunizations Immunization DateImmunizationNotesCare EduenvebXkuhpioo67-68-8006JYUQN-80, mRNA, LNP-S, PF, 30mcg/0.3mL DoseDennis Furlong DO Work Phone: [facility] HospitalSnwxzz31-93-0446CTKCJ-57, mRNA, LNP- S, PF, 30mcg/0.3mL DoseDennis Furlong DO Work Phone: [facility] HospitalUgjcul72-96-8318trycmnivblvbr oligosaccharide (groups A, C, Y and W-135) diphtheria toxoid conjugate vaccine (MCV4O)Nelson [facility] DO Work Phone: [facility] HospitalOvuauw92-84-7871hfzmpbfbn, injectable, quadrivalent, contains preservativeDennis Furlong DO Work Phone: [facility] HospitalNxdrog60-68-7924rdfxpjgfd virus vaccine, unspecified formulationAnnalisa Hernandez MD Work Phone: [facility] CenterTaioivigei12-31-1781aqlzrojgod skin test; purified protein derivative solution, intradermalDennis Furlong DO Work Phone: [facility] HospitalOjlzbi38-03-2725ovihxpmsin skin test; purified protein derivative solution, intradermalDennis Furlong DO Work Phone: [facility]08-06-2014tetanus toxoid, reduced diphtheria toxoid, and acellular pertussis vaccine, adsorbedDennis Furlong DO Work Phone: [facility] HospitalBlpdbx27-45-2133ofsaygpclu, tetanus toxoids and acellular pertussis vaccineDennis Furlong DO Work Phone: [facility]04-03-2007measles, mumps and rubella virus vaccineDennis Furlong DO Work Phone: [facility] HospitalEkhkvp50-51-8960lxvapdglox vaccine, inactivatedDennis Furlong DO Work Phone: [facility] HospitalTubxtw23-64-9314ZDlP-caddquxfx B and poliovirus vaccineDennis Furlong DO Work Phone: [facility] HospitalAkrmqh90-50-3182jkddtzcitsg influenzae type b vaccine, PRP-T conjugateDennis Furlong DO Work Phone: [facility]10-22-2004measles, mumps and rubella virus vaccineDennis Furlong DO Work Phone: [facility] HospitalPyhywn61-39-7523rlxcwshay virus vaccineDennis Furlong DO Work Phone: [facility] HospitalUxwodt78-44-6695xypimmnnf virus vaccineDennis Furlong DO Work Phone: [facility] HospitalLlqbok11-44-8053xylvungybnx influenzae type b vaccine, PRP-T conjugateDennis Furlong DO Work Phone: [facility] HospitalMhiyuy45-67-5528usvqjpnaac, tetanus toxoids and acellular pertussis vaccineDennis Furlong DO Work Phone: [facility] HospitalPswcqy03-34-9962tmrukjdqraeo conjugate vaccine, 13 valentDennis Furlong DO Work Phone: [facility] HospitalEstnhw17-23-0778llpldekzdp, tetanus toxoids and acellular pertussis vaccineDennis Furlong DO Work Phone: [facility] HospitalPexfjl19-18-1743fihdvwdznge influenzae type b vaccine, PRP-T conjugateDennis Furlong DO Work Phone: [facility] HospitalLipkwu44-49-6317tusjeyibu B vaccine, pediatric or pediatric/adolescent dosageDennis Furlong DO Work Phone: [facility] HospitalMsbftt27-41-0011xmuqiieioqoo conjugate vaccine, 7 valentDennis Furlong DO Work Phone: [facility] HospitalFngjjv07-94-7658cygswvjoss vaccine, inactivatedDennis Furlong DO Work Phone: [facility] HospitalZzznsv71-06-7839hdwnbidywj, tetanus toxoids and acellular pertussis vaccineDennis Furlong DO Work Phone: [facility] HospitalXmmsdh64-89-1585wwyyhqnoqgd influenzae type b vaccine, PRP-T conjugateDennis Furlong DO Work Phone: [facility] HospitalPsjbrp98-87-1371nhmciwrsr B vaccine, pediatric or pediatric/adolescent dosageDennis Furlong DO Work Phone: [facility] HospitalObbqkj02-04-8717jaulyqhyiiki conjugate vaccine, 13 valentDennis Furlong DO Work Phone: [facility] HospitalDjghfv48-80-5919grmtpphbyc vaccine, inactivatedDennis Furlong DO Work Phone: [facility] HospitalNjlggj83-98-5157resbvqxen B vaccine, pediatric or pediatric/adolescent dosageDennis Furlong DO Work Phone: [facility] Payers DatePayer CategoryPayerPolicy [id number] [facility] Care - PPOANTHEM Member Subscriber Plan / Payer (Effective 2024-Present) Name: Marcia Uribe Relation to Subscriber: Spouse Name: Shira Uribe Date of : 1995 Address: [address] [place] [address] Payer ID: [id number] (NAIC) Type: Not on file Address: [address] [place] [id number] [facility] Hospital Member Subscriber Plan / Payer (Effective 2024-Present) Name: Marcia Uribe Relation to Subscriber: Spouse Name: SHIRA URIBE Date of : 1995 (Home) Address: [address] [place] [address] Payer ID: Not on file Type: Not on file Address: [address] [id number] [id number] [id number] 1.2.840.705220.1.13.239.2.7.3.854919.51602-47-7556Zekdrhg 1.2.840.862630.1.13.693.2.7.3.06308[id number] 2.840.1.208778.3.579.[id number] 2.840.1.870757.3.57[id number] 2.840.1.581836.3.57[id number] 2.16.840.1.222393.3.579.[id number] 2.16.840.1.067839.3.57[id number] 2.16.840.1.805826.3.57[id number] 2.16.840.1.865599.3.57[id number] 2.16.840.1.109599.3.57[id number] 2.840.1.413565.3.57[id number] 2.840.1.087542.3.57[id number] 2.840.1.753008.3.57[id number] 2.16840.1.135607.3.579.2.934969-19-1670Wlpmoaq754E7330313-13-7210Ezwovyq [id number]-hgwGejo Ulh15z475wr-9155-5p8t-0974-zj393tng8732SgvxmeoTjelrzdryfv [id number] [id number] Social History DateTypeDetailFacilityTobacco smoking status NHISUnknown if ever smokedCleveland Clinic Medina Hospital Work Phone: Start: 81-53-2848Pyx Assigned At BirthRiverview Health Institutetart: 02-02-2023 End: 65-88-8902Nbcvefo smoking status NHISNever smoked tobaccoAIDAN [employer] Phone: start: 02-02-2023 End: 16-33-4261Mrqnotp use and exposureSmokeless tobacco non-userAIDAN [employer] Phone: start: 02-02-2023 End: 80-16-6171Zstgyoa intakeLifetime non-drinker (finding)[employer] Work Phone: start: 65-87-0759Mqq Assigned At BirthNot on fileAIDAN [employer] Phone: start: 09-06-2023 End: 71-66-2976Srhbsqz of Social functionNONH HealthcareStart: 09-06-2023 End: 83-83-9885Tcpvtqp use panelNONH HealthcareStart: 57-16-9569Xqhuej identity Identifies as female gender (finding)[facility] HealthcareStart: 80-55-1414Xhplvx orientationHeterosexual (finding)[facility] HealthcareStart: 04-10-2024 End: 19-82-3473Qdkpcdxfq beverage intakeEx-drinker (finding)[facility] Start: 12-70-4397Qrstrkaq Score (1-100), lower number is lower xzuk37LhetdqpbtMercy Health Willard HospitalHas the [employer], gas, oil, or water company threatened to shut off services in your home in past 12MoNoProMedica Health SystemDo you belong to any clubs or organizations such as congregational groups, unions, fraternal or athletic alfreda ups, or school groups?YesProMedica Health SystemAre you now , , , , never or living with a partner?MarriedProMedica Health SystemHow often to you have a drink containing alcohol?Monthly or less [facility] SystemHow many standard drinks containing alcohol do you have on a typical day?1 or 2ProMedica Health SystemHow often do you have 6 or more drinks on 1 occasion?NeverProMedica Health SystemDo you feel stress - tense, restless, nervous, or anxious, or unable to sleep at night because yourmind is troubled all the time - these days [OSQ]Not at allProMedica Health SystemStart: 57-24-0236XvuAentdc (finding)[facility] Rextart: 76-52-9803Crfrscl Commentcaffeine: occasionallyNONH Healthcare Goals DatePatient GoalDesired Activity/State Functional Status GtgsWmtogkmtqpNhpsjpQuorpdqk93-26-9948Jlfaooypgpe, Afraid, Rape, and Kick questionnaire [HARK][facility]04-21-2025Total score [AUDIT-C]1 12/18/2024 11:40 AM EDT Nelson Mcclure [facility] Clinical Notes 09-28-2023 to 06-25-2025 Note Date & YikhCjxbYlmfxqro60-29-6962 History of Present illness Narrative* Nelson Mcclure, DO - 06/25/2025 11:30 AM EDT Subjective Patient ID: Marcia Uribe is a 24 y.o. female. Marcia presents for a diabetic recheck. She has been taking Mounjaro 5 mg weekly but the pharmacydid not have it in last week and so she had to skip a dose. She has been tolerating it well. She isalso taking metformin. She has no side effects. Her dental infection has resolved. She has intermittent left low back pain and numbness on the inside part of left great toe. It resolves spontaneously. The following portions of the patient's history were reviewed and updated as appropriate: allergies, current medications, past family history, past medical history, past social history, past surgicalhistory, problem list, and medication reconciliation was completed including current medication andpost discharge medication. Review of Systems Constitutional: Positive for appetite change (decreased). Respiratory: Negative. Cardiovascular: Negative. Musculoskeletal: Positive for back pain (in left low back off and on). Neurological: Positive for numbness (Intermittently on inside of left great toe). Psychiatric/Behavioral: Negative. Objective Physical Exam Vitals reviewed. Constitutional: General: She is not in acute distress. Appearance: She is morbidly obese. HENT: Head: Normocephalic. Cardiovascular: Rate and Rhythm: Normal rate and regular rhythm. Pulses: Dorsalis pedis pulses are 3+ on the left side. Heart sounds: Normal heart sounds. No murmur heard. Pulmonary: Effort: Pulmonary effort is normal. No respiratory distress. Breath sounds: Normal breath sounds. No wheezing, rhonchi or rales. Musculoskeletal: Right lower leg: No edema. Left lower leg: No edema. Feet: Right foot: Protective Sensation: 10 sites tested. 10 sites sensed. Toenail Condition: Right toenails are normal. Left foot: Protective Sensation: 10 sites tested. 10 sites sensed. Toenail Condition: Left toenails are normal. Skin: Capillary Refill: Capillary refill takes less than 2 seconds. Neurological: General: No focal deficit present. Mental Status: She is alert. Diabetic foot exam: Visual exam was normal without lesions. Left: Pulses Dorsalis Pedis: present Posterior Tibial: present Vibratory sensation normal Filament test present Right: Pulses Dorsalis Pedis: present Posterior Tibial: present Vibratory sensation normal Filament test present Assessment/Plan Marcia was seen today for 3 month check. back is hurting in the left hip bone, toe. Diagnoses and all orders for this visit: Type 2 diabetes mellitus without complication, without long-term current use of insulin ([facility]) - Diabetic foot exam performed Last A1c was 5.5%. I did not have any samples of Mounjaro so she should just restarted at 5 mg weekly. Her foot exam was normal and her sensation appeared to be intact. Monitor for new symptoms. It is not interfering with her ADLs her quality of life. Morbid obesity ([facility]) She is morbidly obese. She has been losing weight with the Mounjaro. She was congratulated on her weight loss and encouraged to continue. Patient noted to have elevated BMI and the following intervention(s) were applied: encouragement toexercise and prescribed diet education. BMI 45.0-49.9, adult ([facility]) As above documented in this encounterWVUMedicine Harrison Community HospitalConcept Inbox10-13-2025 History of Present illness Narrative* Nelson Mcclure DO - 06/11/2025 4:45 PM EDT Subjective Patient ID: Marcia Uribe is a 24 y.o. female. Marcia presents for a dental problem. She has known wisdom teeth that have erupted through the gums but still needs them removed. It gets infected about every 4 months. Dentist has given her antibiotics in the past. She is planning on having them removed in August. It has been hurting for about 3 weeks. It is on the bottom right side. She got pus out of it this morning. There has pain along her jaw. She does not have a fever. It is painful to chew. Dental Pain The following portions of the patient's history were reviewed and updated as appropriate: allergies, current medications, past family history, past medical history, past social history, past surgicalhistory, problem list, and medication reconciliation was completed including current medication andpost discharge medication. Review of Systems Constitutional: Negative. HENT: Positive for dental problem. Objective Physical Exam Vitals reviewed. Constitutional: General: She is not in acute distress. Appearance: She is not ill-appearing. HENT: Head: Normocephalic. Mouth/Throat: Lips: [place]. Mouth: Mucous membranes are moist. Dentition: Abnormal dentition. Dental tenderness and gingival swelling present. No dental caries, dental abscesses (no obvious abscess to drain) or gum lesions. Pharynx: Oropharynx is clear. Uvula midline. Comments: There is redness and swelling of the right lower gum long her wisdom teeth. Part of the wisdom tooth can be seen. Positive halitosis which I suspect is due to the infection Musculoskeletal: Cervical back: Neck supple. Lymphadenopathy: Cervical: No cervical adenopathy. Neurological: General: No focal deficit present. Mental Status: She is alert and oriented to person, place, and time. Psychiatric: Attention and Perception: Attention normal. Mood and Affect: Mood and affect normal. Speech: Speech normal. Behavior: Behavior normal. Judgment: Judgment normal. Assessment/Plan Marcia was seen today for dental pain. Diagnoses and all orders for this visit: Dental infection Looks like she has an infection along the right lower plate were wisdom teeth are erupting through.Risks and benefits of antibiotics discussed. I am going to treat it with amoxicillin 500 3 times a day for 7 days. She will follow up with the dentist. She can take probiotics while she is on the antibiotic. She can use topical analgesics in addition to oral zjfx-mlj-hiztzbm analgesics for pain and fever. Call if worse or new symptoms arise. Other orders - amoxicillin (AMOXIL) 500 mg capsule; Take 1 capsule (500 mg total) by mouth 3 (three) times a dayfor 7 days. documented in this encounterHenry County Hospital09-08-2025 History of Present illness Narrative* Cierra Perry LPN - 05/07/2025 4:00 PM EDT Reason for Appointment: Patient ID: Marcia Uribe is a 24 y.o. female who presents for Polycystic Ovary Syndrome (Pt present today to discuss PCOS and fertility. (Pt has been on Clomid previously)) Patient presents today for Consult appointment. MEDICATIONS Current Outpatient Medications Medication Instructions albuterol HFA (ProAir HFA) 90 mcg/act inhaler 2 puffs Inhalation every 4 hrs prn fluticasone (Flonase) 50 MCG/ACT nasal spray 2 sprays, Every 24 hours metFORMIN (Glucophage) 500 MG tablet TAKE 1 TABLET(500 MG) BY MOUTH IN THE MORNING AND IN THE EVENING WITH MEALS Mounjaro 2.5 MG/0.5ML solution auto-injector ADMINISTER 2.5 MG UNDER THE SKIN EVERY 7 DAYS ALLERGIES No Known Allergies PROBLEMS Active Ambulatory Problems Diagnosis Date Noted No Active Ambulatory Problems Resolved Ambulatory Problems Diagnosis Date Noted No Resolved Ambulatory Problems Past Medical History: Diagnosis Date Asthma (HCC) Family history of cancer Female infertility 02/19 Irregular menses 12/16 PCOS (polycystic ovarian syndrome) Vitamin D deficiency HISTORY PAST MEDICAL HISTORY SOCIAL HISTORY Past Medical History: Diagnosis Date Asthma (HCC) mild Family history of cancer Female infertility 02/19 Irregular menses 12/16 PCOS (polycystic ovarian syndrome) Vitamin D deficiency Social History Tobacco Use Smoking status: Never Smokeless tobacco: Never Vaping Use Vaping status: Never Used Substance Use Topics Alcohol use: Never Comment: caffeine: occasionally Drug use: Never FAMILY HISTORY Family History Problem Relation Name Age of Onset Breast cancer Maternal Grandmother Breast cancer Mother's Sister Vera Diabetes Mother's Brother Guillermo Bland Maternal Grandfather Jodie garnica Diabetes Mother's Brother Guillermo Garnica SURGICAL HISTORY Past Surgical History: Procedure Laterality Date CYST REMOVAL bilateral uinder arm OTHER SURGICAL HISTORY 03/26/2022 excision and drain of bilateral axillary masses REVIEW OF SYSTEMS Review of Systems: Review of Systems Constitutional: Negative. HENT: Negative. Eyes: Negative. Respiratory: Negative. Cardiovascular: Negative. Gastrointestinal: Negative. Genitourinary: Negative. Musculoskeletal: Negative. Skin: Negative. Neurological: Negative. All other systems reviewed and are negative. Hematological: Negative. Endocrine: Negative. Allergic/Immunologic: Negative. OBJECTIVE Objective: Physical Exam Constitutional: Appearance: Normal appearance. She is well-developed. Cardiovascular: Rate and Rhythm: Normal rate and regular rhythm. Pulmonary: Effort: Pulmonary effort is normal. Breath sounds: Normal breath sounds. Abdominal: General: Bowel sounds are normal. There is no distension. Palpations: Abdomen is soft. Tenderness: There is no abdominal tenderness. There is no guarding or rebound. Musculoskeletal: General: No swelling. Normal range of motion. Right lower leg: No edema. Left lower leg: No edema. Neurological: Mental Status: She is alert and oriented to person, place, and time. Skin: General: Skin is warm and dry. Psychiatric: Mood and Affect: Mood normal. Behavior: Behavior normal. Vitals and nursing note reviewed. Exam conducted with a pharmacy resource tech present. Vitals: Estimated body mass index is 45.43 kg/m as calculated from the following: Height as of this encounter: 6'. Weight as of this encounter: 335 lb. BP: 124/78 No LMP recorded. ASSESSMENT & PLAN ICD-10-CM 1. PCOS (polycystic ovarian syndrome) E28.2 2. Female infertility N97.9 Patient presented to office today to discuss PCOS and fertility. Patient voiced that she is currently on a weight loss journey and would like to loss a little more weight prior to conceiving. Advisedpatient that this is a reasonable plan. Once patient is comfortable with weight loss, then she willreach out to office to start fertility planning. Patient has never had a workup for fertility, so HS G, semen analysis and Femara were discussed with patient. Patient to schele annual prior to leaving office today. Documented by Cierra Perry LPN on behalf of: Wojciech Solano DO documented in this encounterLafayette Regional Health CenterVxrvihrslu67-16-7888 History of Present illness Narrative* Pili Glover, TIME CLOCK INSPECTOR-CLASP MACHINE OPERATOR - 03/22/2025 10:45 AM EDT IM PROGRESS NOTE Patient - Marcia Uribe Age - 24 y.o. - 2000 [facility] # - [id number] ASSESSMENT & PLAN 1. Type 2 diabetes mellitus without complication, without long-term current use of insulin ([facility]) (Primary) -A1c 5.5 which was down from 6.7 previously - POCT Hemoglobin A1c -patient took 1st dose of Mounjaro on Wednesday of this week. No side effects reported. -educated provided to patient about medication and possible side effects. -may use stool softeners or laxative as needed for side effect of constipation. 2. Morbid obesity ([facility]) -weight loss of 4 lb since previous visit -discussed diet and exercise Subjective The following portions of the patient's history were reviewed and updated as appropriate: allergies, current medications, past family history, past medical history, past social history, past surgicalhistory and problem list. DIABETIC VISIT This is a follow up of a pre-existing problem. Patient self monitoring includes finger stick BG checkin time/day. Patient experiences hypoglycemia None. Patient symptoms of hyperglycemia include: none. Current prescribed diet is eats a balanced diet. Patient is following the prescribed diet plan. Home activity includes: The patient does not participate in regular exercise at present.. Patient does not experience numbness or burning in their hands or feet. Patient does not have vision changes. Last eye exam was: 3 weeks ago. No concerns. Patient reports: taking medications as instructed, no medication side effects noted, no chest pain on exertion, no dyspnea on exertion, no swelling of ankles, no orthostatic dizziness or lightheadedness, no palpitations, no intermittent claudication symptoms, and no erectile dysfunction Issues affecting compliance with diabetic self management include: none Review of Systems Constitutional: Negative for activity change, appetite change, chills, diaphoresis, fatigue and fever. HENT: Negative for tinnitus and trouble swallowing. Respiratory: Negative for shortness of breath. Cardiovascular: Negative for chest pain and leg swelling. Gastrointestinal: Negative for abdominal pain, diarrhea, nausea and vomiting. Endocrine: Negative for polydipsia, polyphagia and polyuria. Genitourinary: Negative for difficulty urinating. Musculoskeletal: Negative for gait problem. Skin: Negative for rash. Neurological: Negative for dizziness, syncope, speech difficulty, weakness, light-headedness, numbness and headaches. Psychiatric/Behavioral: Negative for sleep disturbance. Exam BP 118/68 (BP Site: Left Arm, BP Postition: Sitting, BP CUFF SIZE: M (9-13 inches)) Pulse 85 Temp 36.6 C (97.8 F) (Tympanic) Resp 18 Ht 182.9 cm (6' 0.01 ) Wt (!) 158.8 kg (350 lb) SpO2 98% BMI 47.46 kg/m Physical Exam Vitals and nursing note reviewed. Constitutional: General: She is not in acute distress. HENT: Right Ear: Tympanic membrane normal. Left Ear: Tympanic membrane normal. Mouth/Throat: Mouth: Mucous membranes are moist. Pharynx: Oropharynx is clear. Cardiovascular: Rate and Rhythm: Normal rate and regular rhythm. Pulses: Normal pulses. Pulmonary: Effort: Pulmonary effort is normal. Breath sounds: Normal breath sounds. Musculoskeletal: Right lower leg: No edema. Left lower leg: No edema. Skin: General: Skin is warm and dry. Capillary Refill: Capillary refill takes less than 2 seconds. Neurological: General: No focal deficit present. Mental Status: She is alert. Meds Current Outpatient Medications: albuterol (PROVENTIL HFA;VENTOLIN HFA) 90 mcg/actuation inhaler, Inhale 2 puffs every 6 (six) hoursas needed for wheezing., Disp: 18 g, Rfl: 1 fluticasone propionate (FLONASE) 50 mcg/actuation nasal spray, 2 sprays 1 (one) time each day at the same time, Disp: , Rfl: metFORMIN (GLUCOPHAGE) 500 mg tablet, Take 1 tablet (500 mg total) by mouth in the morning and 1 tablet (500 mg total) in the evening. Take with meals., Disp: 60 tablet, Rfl: 11 tirzepatide (MOUNJARO) 2.5 mg/0.5 mL pen injector, Inject 2.5 mg under the skin every 7 days., Disp: 4 mL, Rfl: 2 Lab Results Office Visit on 03/22/2025 Component Date Value Ref Range Status External Poct Hgb A1C 03/22/2025 5.5 4 - 7 % Final Other Testing No results found. Return in about 3 months (around 06/22/2025) for Recheck DM on Monjauro. [place] [facility] Office: [phone] This note is dictated with the use of M*Modal. Please note that this dictation was completed with computer voice recognition software. Quite often unanticipated grammatical, syntax, homophones, and other interpretive errors are inadvertently transcribed by the computer software. Please disregard these errors. Please excuse any errors that have escaped final proofreading. OLGA Arnett 03/22/25 1131 documented in this encounterHenry [facility] Hospital05-21-[facility]25 History of Present illness Narrative* Nelson Mcclure, DO - 01/17/2025 8:30 AM EDT Subjective Patient ID: Marcia Uribe is a 24 y.o. female. Marcia presents for a weight check today after starting phentermine last month. She states she stopped taking the phentermine 5-6 days after receiving the prescription due to dry mouth and tinglingon her lips, arms and legs. She reports that she felt like she had goose bumps all the time. She has lost 13 pounds since her wellness visit last month due to diet and exercise. For exercise she has been walking 2 miles 3-4 days a week which takes her 45 minutes to an hour. She has been counting calories for her diet and has been staying under 1900 calories each day. She has restarted the metformin for the past three weeks as she had an elevated A1c at 6.7% during her last visit. She has been able to get the medication and has not had any complications. The following portions of the patient's history were reviewed and updated as appropriate: allergies, current medications, past family history, past medical history, past social history, past surgicalhistory, problem list, and medication reconciliation was completed including current medication andpost discharge medication. Review of Systems Constitutional: Positive for activity change (increased activity, walking for 2 miles 3-4 days a week) and appetite change (decresed calories to 1900 each day). Negative for fatigue. HENT: Negative. Respiratory: Negative. Cardiovascular: Negative. Gastrointestinal: Negative. Negative for constipation, diarrhea, nausea and vomiting. Genitourinary: Negative. Musculoskeletal: Negative. Skin: Negative. Neurological: Negative. Hematological: Negative. Psychiatric/Behavioral: Negative. Objective Physical Exam Vitals reviewed. Constitutional: General: She is not in acute distress. Appearance: She is morbidly obese. She is not ill-appearing. Cardiovascular: Rate and Rhythm: Normal rate and regular rhythm. Pulses: Normal pulses. Heart sounds: Normal heart sounds. No murmur heard. Pulmonary: Effort: Pulmonary effort is normal. No respiratory distress. Breath sounds: Normal breath sounds. No wheezing, rhonchi or rales. Neurological: General: No focal deficit present. Mental Status: She is alert and oriented to person, place, and time. Psychiatric: Attention and Perception: Attention normal. Mood and Affect: Mood and affect normal. Speech: Speech normal. Behavior: Behavior normal. Behavior is cooperative. Thought Content: Thought content normal. Cognition and Memory: Cognition normal. Judgment: Judgment normal. Assessment/Plan Marcia was seen today for weight check. Diagnoses and all orders for this visit: Type 2 diabetes mellitus without complication, without long-term current use of insulin ([facility]) - tirzepatide (MOUNJARO) 2.5 mg/0.5 mL pen injector; Inject 2.5 mg under the skin every 7 days. - Microalbumin - Albumin: Creatinine Urine Ratio; Future - Microalbumin - Albumin: Creatinine Urine Ratio Patient presents with type 2 diabetes and morbid obesity. She is taking the metformin. She is wondering if she could try another agent to help with her diabetes and weight loss. We discussed various regimens. We will try Mounjaro 2.5 mg once a week. Morbid obesity ([facility]) She has done really well with improving her diet and exercise and has lost 13 lb. She was congratulated on her weight loss and encouraged to continue. She is making positive changes in her health. She could not tolerate the phentermine. We will discontinue that. The Mounjaro may help with weight loss as well. documented in this encounterHenry [facility] Hospital05-21-2025 Miscellaneous Notes* Medical Student - Kwame Henriquez - 01/17/2025 8:30 AM EDT Disclaimer: This note is intended for educational purposes only. It does not constitute a patient visit and is not to be used or relied on for treatment, billing, or any other purposes. It has been created solely for to enable the student to practice documentation to achieve the expected level of competency in charting and receive feedback regarding same. This note is not a part of the legal medical record. documented in this encounterHenry County Hospital05-21-2025 Progress note* Medical Student - Kwame Henriquez - 01/17/2025 8:30 AM EDT Disclaimer: This note is intended for educational purposes only. It does not constitute a patient visit and is not to be used or relied on for treatment, billing, or any other purposes. It has been created solely for to enable the student to practice documentation to achieve the expected level of competency in charting and receive feedback regarding same. This note is not a part of the legal medical record. [facility]05-02-[facility] History of Present illness Narrative* Jessica Wallace APRN-MAR - 12/29/2024 11:00 AM EDT Images from the original note were not included. [address] [facility] [id number] Patient: Marcia Urbie Date of : 2000 Encounter Date: 12/29/2024 History of Present Illness: The patient is a 24 y.o. female, an established patient, and is here for Chief Complaint Patient presents with Breast Mass Right breast lump . HPI Two days ago patient noticed a right breast lump around 7:00 o'clock area deep in her breast. The area is nontender. She does not have implants and has not had any nipple changes, her nipples are usually inverted. Her maternal grandmother had breast cancer and her maternal aunt was diagnosed with breast cancer in her 30s. She has been going through fertility treatments for a but has not taking her fertility treatment medication for the last few weeks. She has irregular periods and sheis not currently on her cycle. After she stopped her fertility treatment she has had 2 cycles. Problem List Items Addressed This Visit None Visit Diagnoses Breast lump on right side at 7 o'clock position - Primary Relevant Orders Ultrasound breast limited right Past Medical, Family, and Social History Update: The following portions of the patient's history were reviewed and updated as appropriate: allergies, current medications, past family history, past medical history, past social history, past surgicalhistory and problem list. Past Medical History: Diagnosis Date Asthma Eczema Hidradenitis suppurativa PCOS (polycystic ovarian syndrome) Visual impairment No past surgical history on file. Current Outpatient Medications Medication Sig Dispense Refill fluticasone propionate (FLONASE) 50 mcg/actuation nasal spray 2 sprays 1 (one) time each day at thesame time metFORMIN (GLUCOPHAGE) 500 mg tablet Take 1 tablet (500 mg total) by mouth in the morning and 1 tablet (500 mg total) in the evening. Take with meals. 60 tablet 11 albuterol-budesonide (AIRSUPRA) 90-80 mcg/actuation HFA aerosol inhaler Inhale 2 puffs every 4 (four) hours as needed (SOB, wheeze). (Patient not taking: Reported on 12/29/2024) 10.7 g 1 phentermine (ADIPEX-P) 37.5 mg tablet Take 1 tablet (37.5 mg total) by mouth every morning before breakfast. (Patient not taking: Reported on 12/29/2024) 30 tablet 0 No current facility-administered medications for this visit. (All medications reviewed and updated by provider since last office visit or hospitalization) Allergies: Patient has no known allergies. Tobacco History: Social History Tobacco Use Smoking Status Never Smokeless Tobacco Never (If patient a smoker, smoking cessation counseling offered) Social History: Social History Substance and Sexual Activity Alcohol Use Not Currently Review of Systems: Review of Systems Skin: Palpated breast lump Physical Exam: BP 130/72 (BP Site: Left Arm, BP Postition: Sitting, BP CUFF SIZE: L (13-17 inches)) Pulse 87 Temp 37.3 C (99.1 F) (Oral) Resp 20 Ht 182.9 cm (6' 0.01 ) Wt (!) 159.5 kg (351 lb 9.6 oz) SpO2 97% BMI 47.67 kg/m Physical Exam Chest: Breasts: Right: Inverted nipple and mass present. Left: Inverted nipple present. Comments: 2 non-tender palpated breast lumps, oblong in shape, moveable, pea- sized to areas marked on diagram Lymphadenopathy: Upper Body: Right upper body: Axillary adenopathy present. Left upper body: Axillary adenopathy present. Assessment and Plan: Marcia was seen today for breast mass. Diagnoses and all orders for this visit: Breast lump on right side at 7 o'clock position - Ultrasound breast limited right; Future Follow-up: We will obtain right breast ultrasound for palpated lung at 7:00 o'clock and provider palpated lumpat 4 o'clock position. Patient should continue to perform self-breast exams. Follow up with Dr. Mcclure as scheduled on January 17. OLGA CALABRESE APRN-CNP 12/29/24 1205 documented in this encounterHenry County Hospital04-22-2025 History of Present illness Narrative* Nelson Mccluer DO - 12/19/2024 3:00 PM EDT She presents for an A1c. Fasting glucose was 142 documented in this encounterHenry County Hospital04-21-2025 History of Present illness Narrative* Nelson Mcclure DO - 12/18/2024 11:00 AM EDT Subjective Patient ID: Marcia Uribe is a 24 y.o. female. Verenice presents today for her annual wellness exam. She has no new problems to report. She would like something to help her lose weight. She is out of her asthma rescue inhaler. She uses it rarely. It is mostly during the change of seasons. The following portions of the patient's history were reviewed and updated as appropriate: allergies, current medications, past family history, past medical history, past social history, past surgicalhistory, problem list, and medication reconciliation was completed including current medication andpost discharge medication. Review of Systems Constitutional: Negative. HENT: Negative. Eyes: Negative. Respiratory: Positive for shortness of breath and wheezing. Use albuterol rescue inhaler rarely Gastrointestinal: Negative. Musculoskeletal: Negative. Objective Physical Exam Vitals reviewed. Constitutional: General: She is not in acute distress. Appearance: She is not ill-appearing. HENT: Head: Normocephalic. Eyes: General: No scleral icterus. Extraocular Movements: Extraocular movements intact. Conjunctiva/sclera: Conjunctivae normal. Cardiovascular: Rate and Rhythm: Normal rate and regular rhythm. Pulses: Normal pulses. Heart sounds: Normal heart sounds. No murmur heard. Pulmonary: Effort: Pulmonary effort is normal. No respiratory distress. Breath sounds: Normal breath sounds. No wheezing, rhonchi or rales. Abdominal: General: Bowel sounds are normal. There is no distension. Palpations: Abdomen is soft. There is no mass. Tenderness: There is no abdominal tenderness. Musculoskeletal: Cervical back: Neck supple. Right lower leg: No edema. Left lower leg: No edema. Lymphadenopathy: Cervical: No cervical adenopathy. Skin: General: Skin is warm. Neurological: General: No focal deficit present. Mental Status: She is alert and oriented to person, place, and time. Psychiatric: Mood and Affect: Mood normal. Behavior: Behavior normal. Thought Content: Thought content normal. Judgment: Judgment normal. Assessment/Plan Marcia was seen today for annual exam. Diagnoses and all orders for this visit: Well adult exam - Comprehensive metabolic panel; Future - Lipid profile; Future Health maintenance discussed. Check CMP and lipids Mild intermittent asthma without complication - albuterol-budesonide (AIRSUPRA) 90-80 mcg/actuation HFA aerosol inhaler; Inhale 2 puffs every 4 (four) hours as needed (SOB, wheeze). Renew rescue inhaler. Will switch to airsupra. Co-pay card given. Morbid obesity ([facility]) - TSH with Reflex; Future - phentermine (ADIPEX-P) 37.5 mg tablet; Take 1 tablet (37.5 mg total) by mouth every morning before breakfast. She is morbidly obese. She would benefit from weight loss. Diet exercise and weight loss discussed.We will check TSH. She is walking 3 days a week for 10 minutes. Encouraged her to increase her exercise. Healthy diet discussed. Avoid processed foods. We discussed various medications. She does not really want to give herself a weekly injection. Risks and benefits of phentermine discussed. She does agree to try. Rx phentermine 37.5 mg daily. She was trying to get but is no longer actively trying. She was stopped the medication if she gets . The OARRS/MAPPS database was reviewed today and found to be appropriate. No indication of medication diversion, or non compliance. Hidradenitis suppurativa HS may be aggravated by dairy products. Currently does not have a flare-up now. She would have surgery in the past which did not really help. Other options are available. May need to see a supply chain coordinator in the future. documented in this encounterHenry County Hospital08-12-2024 Progress note* Diana Cassidy MD - 04/10/2024 12:15 PM EDT Images from the original note were not included. REPRODUCTIVE ENDOCRINOLOGY AND INFERTILITY NEW PATIENT CLINIC NOTE SERVICE DATE: 04/10/2024 SERVICE TIME: 12:15 PM NAME: Marcia Uribe REFERRED BY: SELF CHIEF COMPLAINT: Procreative management and counseling HISTORY OF PRESENT ILLNESS Marcia Uribe is a 23 year old G0 female who presents for new patient visit. Irregular menstrual cycle. LMP Sep 2023. 23 yo G0 with secondary amenorrhea in s/o PCOS, desires fertility. x 2 years, together x 3 years. Previously was taking OCPs for PCOS, stopped in Sep of this year. Menarche age 14. Reports she was initially diagnosed with suspected PCOS at 15 based on abnormal hair growth, irregular cycles.Started OCPs and metformin at that time. Last labs done this past year w/ outside [facility] Dr. Hernandez. While on OCPs had regular monthly cycles lasting 5 days, not heavy or painful. Reports stopping OCPs in September to try to conceive and has been amenorrheic since then. Took clomid 50 mg CD3-7 x 1 cycleand did not have a period. Labs confirmed no ovulation. Was prescribed provera to induce a period, took x 5 days without bleed. Was also recommended increasing clomid to 100 but has not done this yet. [place] 4-5x/week since September pretty consistently. Still on metformin 500 mg BID, tolerating OK. No known family hx infertility, early menopause, genetic issues, cognitive delay, thyroid or autoimmune issues. Denies other PMH apart from hydradenitis suppurativa. No relevant PSH. Not taking any medications except metformin at this time, not on PNVs. Previously tried darrian-inositol for a few months but did not notice any effect so stopped taking. 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 Hx STIs: No Dyspareunia: No LABS/IMAGING: Per OSH notes, normal thyroid testing (unable to view results) PAST MEDICAL HISTORY No date: Asthma No date: Hidradenitis suppurativa No date: Vitamin D deficiency PAST SURGICAL HISTORY No date: CYST/MOLE REMOVAL Comment: excision and drain of bilateral axillary masses, hx Hidradenitis suppurativa FAMILY HISTORY Problem Relation Age of Onset Breast Cancer Maternal Grandmother Breast Cancer Maternal Aunt Uterine Cancer No Family History Ovarian cancer No Family History Cervical Cancer No Family History Social History Tobacco Use Smoking status: Never Smokeless tobacco: Never Substance Use Topics Alcohol use: Not Currently Drug use: Not Currently Current Outpatient Medications Medication Sig metFORMIN (GLUCOPHAGE) 500 mg tablet Take 500 mg by mouth two times a day. letrozole (FEMARA) 2.5 mg tablet Take 1 tablet by mouth once daily for 5 days. Menstrual cycle day 3-7 medroxyPROGESTERone (PROVERA) 10 mg tablet Take 1 tablet by mouth once daily for 10 days. No current facility-administered medications for this visit. Allergies As of Date: 04/10/2024 (No Known Allergies) Fully Assessed 04/10/2024 Partner History Both patient and partner give permission to discuss test results and medication information with the other. Partner gives permission to access EMR. Partner Information * If Partner is female, check box for associated questions.: No Partner's Name: Shira Uribe Partner's : 1997 Partner's Partner's Ethnicity: Partner's Race: Black or Occupation: Construction Legally ?: Yes Years together: in 07/2022, together 12/2020 Do they have children together?: No Any other Previous Pregnancies?: Yes Date of last : x 2015 with a diff partner Number of cigarettes smoked daily: None Marijuana use: No Number of alcoholic beverages: Noneper week Medications: none Pertinent Medical Hx: none Pertinent Surgical Hx: none Pertinent Genetic Hx: none Fathered children current relationship: No Fathered children prior relationship: Yes Partner has had: Difficulty with erections Partner had fever in the last 4 months: No Partner has [facility] medical chart: Yes Partner had prior fertility testing or treatment elsewhere: Yes Semen Analysis: Semen analysis: Not done ASSESSMENT AND PLAN Marcia Uribe is a 23 year old female who presents for new patient visit. Marcia was seen today for new patient. Diagnoses and all orders for this visit: Irregular menses - HYDROXYPROGESTERONE-17; Future - HCG QUANTITATIVE; Future - PROGESTERONE; Future - ESTRADIOL-17B BLD; Future - ANTI MULLERIAN HORMONE; Future - FOLLICLE STIMULATING HORMONE; Future Secondary amenorrhea - HYDROXYPROGESTERONE-17; Future - HCG QUANTITATIVE; Future - PROGESTERONE; Future - ESTRADIOL-17B BLD; Future - ANTI MULLERIAN HORMONE; Future - FOLLICLE STIMULATING HORMONE; Future - PROLACTIN; Future PCOS (polycystic ovarian syndrome) - CONSULT TO [facility] PCOS [facility]; Future - CONSULT TO [facility] PCOS [facility]; Future Other orders - letrozole (FEMARA) 2.5 mg tablet; Take 1 tablet by mouth once daily for 5 days. Menstrual cycle day 3-7 - medroxyPROGESTERone (PROVERA) 10 mg tablet; Take 1 tablet by mouth once daily for 10 days. PCOS, secondary amenorrhea - counseling given on physiology and management of PCOS - referral to multidisciplinary PCOS clinic placed - check labs today and pending results plan provera to induce withdrawal bleed, after which will start letrozole for OI - check day 21 progesterone and titrate dose of letrozole accordingly. Female Evaluation: - screening as above - recessive carrier genetic screening - STI screening as above - ovulatory assessment: recommended OPKs, day 21 progesterone, TSH, prolactin - tubal evaluation: HSG - will hold off for now. - pelvic ultrasound - ok to hold off for now. Male Evaluation: - discussed potential etiologies of erectile dysfunction, placed referral to Urology RTC 6-8 weeks Discuss preconception labs at next visit Patient seen and discussed w/ Dr. Benson, attending Diana Cassidy MD Reproductive Endocrinology and Infertility Fellow, PGY-5 I saw and evaluated the patient. Discussed with the fellow and agree with fellow's findings and plan as documented in the fellow's note. Alethea Benson MD I spent a total of 60 minutes on the date of the service which included preparing to see the patient, [id number] patient care, obtaining and/or reviewing separately obtained history, counseling andeducating the patient/family/caregiver, ordering medications, tests, or procedures, communicating results to the patient/family/caregiver, and care coordination (not separately reported). [facility] Work Phone: [phone]) 484-347508-12-2024 Consult note* Diana Cassidy MD - 04/10/2024 12:15 PM EDT Images from the original note were not included. REPRODUCTIVE ENDOCRINOLOGY AND INFERTILITY NEW PATIENT CLINIC NOTE SERVICE DATE: 04/10/2024 SERVICE TIME: 12:15 PM NAME: Marcia Uribe REFERRED BY: SELF CHIEF COMPLAINT: Procreative management and counseling HISTORY OF PRESENT ILLNESS Marcia Uribe is a 23 year old G0 female who presents for new patient visit. Irregular menstrual cycle. LMP Sep 2023. 23 yo G0 with secondary amenorrhea in s/o PCOS, desires fertility. x 2 years, together x 3 years. Previously was taking OCPs for PCOS, stopped in Sep of this year. Menarche age 14. Reports she was initially diagnosed with suspected PCOS at 15 based on abnormal hair growth, irregular cycles.Started OCPs and metformin at that time. Last labs done this past year w/ outside [facility] [facility] Dr. Hernandez. While on OCPs had regular monthly cycles lasting 5 days, not heavy or painful. Reports stopping OCPs in September to try to conceive and has been amenorrheic since then. Took clomid 50 mg CD3-7 x 1 cycleand did not have a period. Labs confirmed no ovulation. Was prescribed provera to induce a period, took x 5 days without bleed. Was also recommended increasing clomid to 100 but has not done this yet. [place] 4-5x/week since September pretty consistently. Still on metformin 500 mg BID, tolerating OK. No known family hx infertility, early menopause, genetic issues, cognitive delay, thyroid or autoimmune issues. Denies other PMH apart from hydradenitis suppurativa. No relevant PSH. Not taking any medications except metformin at this time, not on PNVs. Previously tried darrian-inositol for a few months but did not notice any effect so stopped taking. 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 Hx STIs: No Dyspareunia: No LABS/IMAGING: Per OSH notes, normal thyroid testing (unable to view results) PAST MEDICAL HISTORY No date: Asthma No date: Hidradenitis suppurativa No date: Vitamin D deficiency PAST SURGICAL HISTORY No date: CYST/MOLE REMOVAL Comment: excision and drain of bilateral axillary masses, hx Hidradenitis suppurativa FAMILY HISTORY Problem Relation Age of Onset Breast Cancer Maternal Grandmother Breast Cancer Maternal Aunt Uterine Cancer No Family History Ovarian cancer No Family History Cervical Cancer No Family History Social History Tobacco Use Smoking status: Never Smokeless tobacco: Never Substance Use Topics Alcohol use: Not Currently Drug use: Not Currently Current Outpatient Medications Medication Sig metFORMIN (GLUCOPHAGE) 500 mg tablet Take 500 mg by mouth two times a day. letrozole (FEMARA) 2.5 mg tablet Take 1 tablet by mouth once daily for 5 days. Menstrual cycle day 3-7 medroxyPROGESTERone (PROVERA) 10 mg tablet Take 1 tablet by mouth once daily for 10 days. No current facility-administered medications for this visit. Allergies As of Date: 04/10/2024 (No Known Allergies) Fully Assessed 04/10/2024 Partner History Both patient and partner give permission to discuss test results and medication information with the other. Partner gives permission to access EMR. Partner Information * If Partner is female, check box for associated questions.: No Partner's Name: Shira Uribe Partner's : 1997 Partner's Partner's Ethnicity: Partner's Race: Black or Occupation: Construction Legally ?: Yes Years together: in 07/2022, together 12/2020 Do they have children together?: No Any other Previous Pregnancies?: Yes Date of last : x 2015 with a diff partner Number of cigarettes smoked daily: None Marijuana use: No Number of alcoholic beverages: Noneper week Medications: none Pertinent Medical Hx: none Pertinent Surgical Hx: none Pertinent Genetic Hx: none Fathered children current relationship: No Fathered children prior relationship: Yes Partner has had: Difficulty with erections Partner had fever in the last 4 months: No Partner has [facility] medical chart: Yes Partner had prior fertility testing or treatment elsewhere: Yes Semen Analysis: Semen analysis: Not done ASSESSMENT AND PLAN Marcia Uribe is a 23 year old female who presents for new patient visit. Marcia was seen today for new patient. Diagnoses and all orders for this visit: Irregular menses - HYDROXYPROGESTERONE-17; Future - HCG QUANTITATIVE; Future - PROGESTERONE; Future - ESTRADIOL-17B BLD; Future - ANTI MULLERIAN HORMONE; Future - FOLLICLE STIMULATING HORMONE; Future Secondary amenorrhea - HYDROXYPROGESTERONE-17; Future - HCG QUANTITATIVE; Future - PROGESTERONE; Future - ESTRADIOL-17B BLD; Future - ANTI MULLERIAN HORMONE; Future - FOLLICLE STIMULATING HORMONE; Future - PROLACTIN; Future PCOS (polycystic ovarian syndrome) - CONSULT TO [facility]OS [facility]; Future - CONSULT TO [facility] PCOS [facility]; Future Other orders - letrozole (FEMARA) 2.5 mg tablet; Take 1 tablet by mouth once daily for 5 days. Menstrual cycle day 3-7 - medroxyPROGESTERone (PROVERA) 10 mg tablet; Take 1 tablet by mouth once daily for 10 days. PCOS, secondary amenorrhea - counseling given on physiology and management of PCOS - referral to multidisciplinary PCOS clinic placed - check labs today and pending results plan provera to induce withdrawal bleed, after which will start letrozole for OI - check day 21 progesterone and titrate dose of letrozole accordingly. Female Evaluation: - screening as above - recessive carrier genetic screening - STI screening as above - ovulatory assessment: recommended OPKs, day 21 progesterone, TSH, prolactin - tubal evaluation: HSG - will hold off for now. - pelvic ultrasound - ok to hold off for now. Male Evaluation: - discussed potential etiologies of erectile dysfunction, placed referral to Urology RTC 6-8 weeks Discuss preconception labs at next visit Patient seen and discussed w/ Dr. Benson, attending Diana Cassidy MD Reproductive Endocrinology and Infertility Fellow, PGY-5 I saw and evaluated the patient. Discussed with the fellow and agree with fellow's findings and plan as documented in the fellow's note. Alethea Benson MD I spent a total of 60 minutes on the date of the service which included preparing to see the patient, [id number] patient care, obtaining and/or reviewing separately obtained history, counseling andeducating the patient/family/caregiver, ordering medications, tests, or procedures, communicating results to the patient/family/caregiver, and care coordination (not separately reported). documented in this [facility] Instructions* Patient Instructions* Ros Stoll MD - 04/10/2024 12:04 PM EDT I would recommend you see a analytics specialist. deck specialist is a subspecialty in Urology department. I would recommend you see DrsVincent Michel, Jose Caldera, or Marcus Chang. The appointment phone number is [phone]. LETROZOLE (Femara) INSTRUCTIONS Letrozole: 1 tablet(s) a day, cycle days 3-7 Note: 1st day of full flow is cycle day 1 Have sexual intercourse approximately every other day for 1 week beginning cycle day 11 You don't need temperature charts or LH predictor kits because normal cycle lengths indicate ovulatory cycles. If you are planning inseminations, you will use LH predictor kits for timing If normal 28 - 32 day cycle, repeat above for a total of 4 cycles Call office if: cycles longer than 35 days not after 4 regular cycles Side effects of Letrozole may include: acne headache hot flushes leg cramps nausea If side effects are severe, alternative medications may be available. Letrozole has a 5% chance of multiple (twins or more). Progesterone: May be given to bring on a period if you have not had a period after 40 days and a home test is negative. Continue to take Progesterone if you have light bleeding. Expect to bleed within 2 weeks of finishing Progesterone. PCOS resources: https://www.acog.org/Patients/FAQs/Wawtizszpp-Exqjc-Pynlpssd-PCOS Https://www.pcosaa.org https://pcoschallenge.org PCOS - SoulCysters.com on P[employer]stream - Soul Cysters/Women with PCOS speak from the heart. The zabala to a PCOS diet is carb restriction or elimination. Track your calories with an artie like Lose It. The goal is a 1400 calorie diet that is high in protein. Some of our patients also have tried Paleo diet, mediterranean diet, Keto diet (Keto diet is a bit hard to sustain in my opinion), or Weight Watcher with success. Exercise and maintain a healthy weight is also extremely important. Maintain a normal exercise routine, 20 to 30 minutes per day, 4 to 5 times per week. PCOS supplements: The following supplements are marketed to women with PCOS. Although there is no great evidence for benefit, I do not think they are harmful either. Darrian-inositol 2000mg daily NAC (N-acetylcysteine) 600mg daily Vitamin D 4000 units daily Book I like about PCOS Healing PCOS: A 21-Day Plan for Reclaiming Your Health and Life with Polycystic Ovary Syndrome by Blanca Del Toro. She also has a Podcast and website called PCOS Diva documented in this encounterMer[facility]01-30-[facility] History of Present illness Narrative* Annalisa Hernandez MD - 09/28/2023 8:00 AM EST Images from the original note were not included. Annalisa Hernandez MD Obstetrics and Gynecology Patient: Marcia Izquierdo : 2000 (22 y.o.) Exam Date: 09/28/2023 Reason [...] mg) by mouth in the morning., Disp: 180tablet, Rfl: 3 Past Medical History: Diagnosis Date [...] ovaries with pending ultrasound. Patient in agreement Electronically signed by Annalisa Hernandez MD [facility] HealthcareEvaluation noteNo assessment information availableC[facility] Work Phone: Evaluation note* Diagnosis Screen for STD (sexually transmitted disease) Screening examination for venereal disease documented in this encounter [facility] Work Phone: evaluation note* Diagnosis Insulin resistance- Primary Other abnormal glucose Abnormal vaginal bleeding Other specified noninflammatory disorder of vagina Female fertility problem Hirsutism [facility]* Diagnosis Anovular- Primary Female infertility associated with anovulation documented in this encounter [facility] HospitalEvalusaint [facility] note* Diagnosis Irregular menses- Primary Irregular menstrual cycle Secondary amenorrhea Absence of menstruation PCOS (polycystic ovarian syndrome) Polycystic ovaries documented [facility] encounter [facility]* Diagnosis Well adult exam- Primary Routine general medical examination at a health care facility Mild intermittent asthma without complication Morbid obesity ([facility]) Morbid obesity Hidradenitis suppurativa Hidradenitis documented in this [facility]* Diagnosis Insulin resistance- Primary Other abnormal glucose documented in [facility]* Diagnosis Breast lump on right side at 7 o'clock position- Primary Lump or mass in breast documented in this encounter [facility] note* Diagnosis Type 2 diabetes mellitus without complication, without long-term current use of insulin ([facility])- Primary Morbid obesity ([facility]) Morbid obesity documented in this encounter [facility] System[facility] note* Diagnosis Type 2 diabetes mellitus without complication, without long-term current use of insulin ([facility])- Primary Morbid obesity ([facility]) Morbid obesity documented in this encounter [facility] System[facility] note* Diagnosis Type 2 diabetes mellitus without complication, without long-term current use of insulin ([facility])- Primary documented in this encounter [facility] note* Diagnosis PCOS (polycystic ovarian syndrome) Polycystic ovaries Female infertility Female infertility of unspecified origin [facility] Diagnosis Dental infection- Primary documented in this encounter [facility]* Diagnosis Type 2 diabetes mellitus without complication, without long-term current use of insulin ([facility])- Primary Morbid obesity ([facility]) Morbid obesity BMI 45.0-49.9, adult ([facility]) documented in this encounter [facility] [employer] SystemInstructionsNot on filedocumented in this encounter [facility] SystemInstructionsNot on filedocumented in this encounter [facility] SystemInstructions* Attachments The following attachments cannot be sent through Care Everywhere. * Breast ultrasound (Yemeni) documented in this encounterProCho[facility]epsk[facility] SystemInstructionsNot on file documented in this encounterProChoctaw [facility] Hospital [facility]epsk[facility] SystemInstructionsNot on file documented in this encounterProOhiohealth [facility] SystemInstructions* Attachments The following attachments cannot be sent through Care Everywhere. * Tirzepatide, ADULT (Yemeni) documented in this encounterProChoctaw General Hospital [facility]eps[facility] SystemInstructionsNot on file documented in this encounterProOhiohealth [facility] SystemInstructionsNot on file documented in this encounterProOhiohealth [facility] SystemInstructionsNot on file documented in this encounterProOhiohealth [facility] Summary Purpose Family History Relationship Condition Age at Onset Recorded Date/T luis Not Specified No pertinent family history Unknown Advance Directives Advance Directive Response Recorded Date/ Time Advance Directives No March 16 10:55am Chief Complaint and Reason for Visit Chief Complaint Axillary Masses Axillary Masses Additional Source Comments INFORMATION SOURCE (unrecogn ized section and content) DATE CREATED AUTHOR 10/02/2021 [facility] DATE CREATED AUTHOR AUTHOR'S ORGANIZ ATION 04/25/2022 [facility] DATE CREATED AUTHOR AUTHOR'S ORGANIZ ATION 12/22/2022 [facility] DATE CREATED AUTHOR AUTHOR'S ORGANIZ ATION 02/08/2023 [facility] DATE CREATED AUTHOR AUTHOR'S ORGANIZ ATION 04/16/2024 [facility] DATE CREATED AUTHOR AUTHOR'S ORGANIZ ATION 05/06/2024 [facility] DATE CREATED AUTHOR AUTHOR'S ORGANIZ ATION 01/06/2025 [facility] DATE CREATED AUTHOR AUTHOR'S ORGANIZ ATION 05/09/2025 [facility] DATE CREATED AUTHOR AUTHOR'S ORGANIZ ATION 06/26/2025 [facility] Care Teams (unrecognized sec tion and content) Team Status: Inactive Member Role Status Dates José Miguel Garcia MD Attending Provider Active Trenton Patel Care ProviderActive Team Status: Active Member Role Status Dates Nelson Mcclure DO Primary Care Provider Active Team MemberRelationshipSpecialtyStart DateEnd Date None, None PCP - General02/01/23Team MemberRelationshipSpecialtyStart DateEnd Date Nelson Mcclure MD [address] [facility] [address] PCP - GeneralFacaly Medicine09/06/23Team MemberRelationshipSpecialtyStart [place] [address] [facility] [address] [place] [address] Ophthalmology01/19/24Team MemberRelationshipSpecialtyStart [place] [address] [facility] [address] [place] [address] Ophthalmology01/19/24Team MemberRelationshipSpecialtyStart [place] [address] [facility] [address] [place] [address] Ophthalmology01/19/24Team MemberRelationshipSpecialtyStart DateEnd Date Nelson Mcclure DO [address] [place] [address] PCP - GeneralFamily Ywdeaomq57/6/22Team MemberRelationshipSpecialtyStart DateEnd Date Nelson Mcclure DO [address] [place] [address] PCP - GeneralFamily Gmggjlpt90/6/22Team MemberRelationshipSpecialtyStart DateEnd Date Nelson Mcclure DO [address] [place] [address] PCP - GeneralFamily Izhxrvfq65/6/22Team MemberRelationshipSpecialtyStart DateEnd Date Nelson Mcclure DO [address] [place] [address] PCP - GeneralFamily Axhblyil67/6/22Team MemberRelationshipSpecialtyStart DateEnd Date Nelson Mcclure DO [address] [place] [address] PCP - GeneralFamily Yjarucsh62/6/22Team MemberRelationshipSpecialtyStart DateEnd Date Nelson Mcclure DO [address] [place] [address] PCP - GeneralFamily Yeachzez88/6/22Team MemberRelationshipSpecialtyStart DateEnd Date Nelson Mcclure DO [address], [address] [place] [address] PCP - Generalmily Wifveyeb19/6/22Team MemberRelationshipSpecialtyStart DateEnd Date Nelson Mcclure MD PCP - GeneralFamily Medicine09/06/23Team MemberRelationshipSpecialtyStart DateEnd Date Nelson Mcclure MD PCP - GeneralFamily Medicine09/06/23Team MemberRelationshipSpecialtyStart DateEnd Date Nelson Mcclure DO [address] [place] [address] PCP - GeneralFamily Gsrinpgf68/6/22Team MemberRelationshipSpecialtyStart DateEnd Date Nelson Mcclure MD PCP - GeneralFamily Medicine09/06/23 Reason for Visit (unrecogniz ed section and content) ReasonCommentsFollow-upReasonCommentsNew PatientSpecialtyDiagnoses / Procedures Referred By ContactReferred To ContactGynecology Diagnoses Desire for Procedures OFFICE/OUTPATIENT NEW HIGH MDM 60 MINUTES AMB REFERRAL TO OB-STILL OPERATOR Fan Lorenz, [address] [place] [address] Ros Stoll MD [address] [place] [address] Referral IDStatusReasonStart DateExpiration DateVisits RequestedVisits [id number] Request ReasonCommentsAnnual ExamReasonCommentsBreast MassRight breast lumpReason CommentsWeight CheckReasonCommentsDiabetesReasonCommentsPolycystic Ovary SyndromePt present today to discuss PCOS and fertility. (Pt has been on Clomid previously)ReasonCommentsDental PainWisdom toothReasonComments3 month check. Back is hurting in the left hip bone, toeMedication refill Source Comments (unrecognize d section and content) In the event this informatio n is protected by the Federal Confidentiality of Alcohol and Drug Abuse Patient Records regulations: The Federal rules restrict any use of the information to criminally investigate or prosecute any alcohol or drug abuse patient.[facility] HospitalIn the event this information is protected by the Federal Confidentiality of Alcohol and Drug Abuse Patient Records regulations: The Federal rules restrict any use of the information to criminally investigate or prosecute any alcohol or drug abuse patient.[facility] HospitalIn the event this information is protected by the Federal Confidentiality of Alcohol and Drug Abuse Patient Records regulations: The Federal rules restrict any use of the information to criminally investigate or prosecute any alcohol or drug abuse patient.[facility] HospitalIn the event this information is protected by the Federal Confidentiality of Alcohol and Drug Abuse Patient Records regulations: The Federal rules restrict any use of the information to criminally investigate or prosecute any alcohol or drug abuse patient.[facility] FOR RECORDS PERTAINING TO PATIENTS WHO ARE [...] BE BASED ON THE PRIMARY CLINICAL RECORDS. [facility] [employer] [facility] provides no warranty or guarantee of the accuracy or completeness of information in this document.
== END 2025-07-03 19:15 | disposition home or self-care (01) ==
LOC: LAB 19:14
PROVIDERS: PCP Family Medicine; Visit Provider Obstetrics & Gynecology
DX: Z01.419 Encounter for gynecological examination (general) (routine) without abnormal findings (principal)
CPT/HCPCS: 88175

== ENCOUNTER 2025-08-13 09:54 | Outpatient (REF) | payer BC, SELFPAY ==
--- OUTSIDE RECORDS SUMMARY | 2025-08-13 13:30 | XMS_ITS | Encounter Summary ---
Author Organization [facility] Address [address] [place] [address] Care Team Providers Care Apron Cleaner Name Role Phone Nelson Sams MD Primary Care Provider + [phone] Reason for Visit * ReasonCommentsProcedure Encounter Details DateTypeDepartmentCare Team (Latest Contact Info)Uysdsiolgql95/15/2025 1:30 PM ESTProcedure Visit YOLE MARVIN [address] [facility] [place] [address] Wojciech Solano DO [address] [facility] [address] [place], [place] [id number] Colposcopy needed after cervical smear; LGSIL of cervix of undetermined significance Social History Tobacco UseTypesPacks/DayYears UsedDateSmoking Tobacco: NeverSmokeless Tobacco: NeverAlcohol UseStandard Drinks/WeekCommentsNever0 (1 standard drink = 0.6 oz pure alcohol)caffeine: occasionallyPHQ-2AnswerDate RecordedPatient Health Questionnaire-2 Fzjdw4294CommentsNoSex and Gender Information ValueDate RecordedSex Assigned at LzjlyRrmksm58/01/2024 1:34 PM ESTLegal Sex Yefpna5111/11/2022 11:38 PM EDTGender BzuwjpmzUejork00/01/2024 1:34 PM ESTSexual LustoybygkgNsmefuzq38/01/2024 1:34 PM ESTdocumented as of this encounter Last Filed Vital Signs Vital SignReadingTime TakenCommentsBlood Vzopmufc164/6408/13/2025 1:55 PM EST Pulse--Temperature--Respiratory Rate--Oxygen Saturation--Inhaled Oxygen Concentration--Ebdkxq257 kg (331 lb)08/13/2025 1:55 PM ESTHeight--Body Mass Index44.8911 2:57 PM ESTdocumented in this encounter Progress Notes * Cierra Perry LPN - 08/13/2025 1:30 PM ESTAssociated Order(s): Colposcopy Post-Procedure Diagnose(s): LGSIL of cervix of undetermined significance; Colposcopy needed after cervical smear Reason for Appointment: Patient ID: Marcia Bowman is a 24 y.o. female who presents for Procedure Patient presents today for a Colposcopy appointment. MEDICATIONS Current Outpatient Medications Medication Instructions albuterol HFA (ProAir HFA) 90 mcg/act inhaler 2 puffs Inhalation every 4 hrs prn fluticasone (Flonase) 50 MCG/ACT nasal spray 2 sprays, Every 24 hours medroxyPROGESTERone (PROVERA) 10 mg, Oral, Daily, Take 1 tablet by mouth daily for 7 days beginningon day 16 of the menstrual cycle. metFORMIN (Glucophage) 500 MG tablet TAKE 1 [...] cancer Maternal Grandmother Breast cancer Mother's Sister Helena Diabetes Mother's Brother Guillermo Bland Maternal Grandfather Jodie lópez Diabetes Mother's Brother Guillermo López SURGICAL HISTORY Past Surgical History: Procedure Laterality [...] Constitutional: Appearance: Normal appearance. She is well-developed. Genitourinary: Vulva normal. Cardiovascular: Rate and Rhythm: Normal rate [...] nursing note reviewed. Exam conducted with a yard loader operator present. Vitals: Estimated body mass index is 44.89 kg/m?? as calculated from the following: Height as of 07/03/25: 6'. Weight as of this encounter: 331 lb. BP: 114/64 No LMP recorded. ASSESSMENT & PLAN Encounter Diagnosis: ICD-10-CM 1. Colposcopy needed after cervical smear R87.619 POCT , urine manually resulted Colposcopy Colposcopy Date/Time: 08/13/2025 2:32 PM Performed by: Wojciech Solano DO Authorized by: Wojciech Solano DO Consent: Patient questions answered: yes Risks and benefits of the procedure and its alternatives discussed: yes Consent obtained: Written Consent given by: Patient Pre-procedure: Speculum was placed in the vagina: yes Prep solution(s): acetic acid Procedure: Colposcopy with: endocervical curettage Cervix visibility: fully visualized Ferric subsulfate solution applied: no Tampon inserted: no Post-procedure: Patient tolerance of procedure: Patient tolerated the procedure well with no immediate complications Instructions and paperwork completed: yes Educational handouts given: no Assessment/Plan Colposcopy: Patient is doing well and has no complaints. Pap results have been reviewed with the patient in great detail and patient voiced understanding. Patient presents today for a Colposcopy with ECC. Patient was placed in dorsal lithotomy position with feet in stirrups, a sterile speculum was placed into the vagina and the cervix was visualized. Cervix was cleansed with vinegar. Postprocedural instructions given. All if patients questions answered and she expressed understanding. Advised to call in interim with questions or concerns. Follow Up: Patient is to return in 6 months for Repeat Pap. Documented by Cierra Perry LPN on behalf of: Wojciech Solano DO documented in this encounter Plan of Treatment DateTypeDepartmentCare Team (Latest Contact Info)Mxumdebvsno18/15/2026 11:20 AM EDTProcedure Visit YOEL MARVIN [address] [place] [address] [place] [phone] Wojceich Solano DO [address] [facility] [place] [address] 08/13/2026 10:00 AM ESTProcedure Visit YOEL MARVIN [address] [place] [address] [place] [address] Wojciech Solano DO [address] [facility] [place] [address] NameTypePriorityAssociated DiagnosesOrder ScheduleColposcopyProceduresRoutine Colposcopy needed after cervical smear Expected: 08/13/2025 (Approximate), Expires: 08/13/2026documented as of this encounter Procedures Procedure NamePriorityDate/TimeAssociated DiagnosisCommentsCOLPOSCOPYRoutine 08/13/2025 2:32 PM EST Colposcopy needed after cervical smear LGSIL of cervix of undetermined significance documented in this encounter Results * Colposcopy (08/13/2025 2:32 PM EST) Yumiko Cierra Perry LPN - 08/13/2025 2:32 PM EST Cierra GO Perry 08/14/2025 3:18 PM Colposcopy Date/Time: 08/13/2025 2:32 PM Performed by: Wojciech Solano DO Authorized by: Wojciech Solano DO ?? Consent: ??Patient questions answered: yes ?Risks and benefits of the procedure and its alternatives discussed: yes ?Consent obtained: ??Written ??Consent given by: ??Patient Pre-procedure: ??Speculum was placed in the vagina: yes ?Prep solution(s): acetic acid ?? Procedure: ??Colposcopy with: endocervical curettage ?Cervix visibility: fully visualized ?Ferric subsulfate solution applied: no ?Tampon inserted: no ?? Post-procedure: ??Patient tolerance of procedure: ??Patient tolerated the procedure well with no immediate complications ??Instructions and paperwork completed: yes ?Educational handouts given: no ?? Authorizing ProviderResult TypeResult StatusCoreshamika [facility]/B[facility]IDE ORDERABLESFinal Result documented in this encounter Visit Diagnoses Diagnosis Colposcopy needed after cervical smear LGSIL of cervix of undetermined significance documented in this encounter Care Teams Team MemberRelationshipSpecialtyStart DateEnd Date Nelson Sams MD [address] [facility] [place] [address] PCP - GeneralFamily Medicine09/06/23documented as of this encounter
--- OUTSIDE RECORDS SUMMARY | 2025-08-16 09:58 | XMS_ITS | Clinical Summary ---
Author Organization [facility] Parents R People [facility] tem Address [id number] [place] [address] Care Team Providers Care Lawn Service Supervisor Name Role Phone GeraldineNelson thompson Primary Care Provider [phone] Allergies No known active allergies Medications MedicationSigDispense QuantityRefillsLast FilledStart DateEnd DateStatus fluticasone propionate (FLONASE) 50 mcg/actuation nasal spray 2 sprays 1 (one) time each day at the same timeActive metFORMIN (GLUCOPHAGE) 500 mg tablet Take 1 tablet (500 mg total) by mouth in the morning and 1 tablet (500 mg total) in the evening. Take with meals. 60 tablet 1105Active albuterol (PROVENTIL HFA;VENTOLIN HFA) 90 mcg/actuation inhaler Inhale 2 puffs every 6 (six) hours as needed for wheezing. 18 g 1055Active tirzepatide (MOUNJARO) 5 mg/0.5 mL pen injector Indications:Type 2 diabetes mellitus without complication, without long-term current use of insulin ([facility])Inject 5 mg under the skin every 7 days. 2 mL 5085Active Active Problems ProblemNoted DateDiagnosed DateDental klxhileav34/13/2025Type 2 diabetes mellitus without complication, without long-term current use of insulin 01/17/2025Morbid gktkdnf0512/18/2024Mild intermittent asthma without complication 12/18/2024Hidradenitis suppurativa Encounters DateTypeDepartmentCare VwegDggsffpkdpl72/27/2025 11:30 AM EDTOffice Visit [facility] [address] [place] [address] Nelson Sams, Type 2 diabetes mellitus without complication, without long-term current use of insulin ([facility]) (Primary Dx); Morbid obesity ([facility]); BMI 45.0-49.9, adult ([facility])06/25/20257658Fobzgk77/13/2025 4:45 PM EDTOffice Visit [facility] [address] [place] [address] Nelson Sams, Dental infection (Primary Dx)06/11/20257030Ttnrmz34/22/2025Orders Only [facility] [address] [place] [address] Nelson Sams, from Last 3 Months Immunizations ImmunizationAdministration DatesNext DueCOVID-19, mRNA, LNP-S, PF, 30mcg/0.3mL Dose01/23/2021,7533WKiU92/03/2007,09/05/2003,06/11/2003,02/06/2003DTaP / Hep B / IPV06/20/2004Hep B, Adolescent or Rzskwpriz40/13/2003,02/06/2003, 2002Hib (PRP-T)06/20/2004,12/03/2003,06/11/2003,02/06/2003IPV2006, 06/11/2003,02/06/2003Influenza, Injectable, Csieqvcsnfji10/21/3185GEW6511/30/2006, 06/20/2004Meningococcal Wbsojmagk04/14/2020PPD Test04/04/2018,03/28/2018 Pneumococcal Kgywhrxlr54/13/2003Pneumococcal Conjugate 13-Psvxzl0309/05/2003, 02/06/2003Tdap04/04/20146860Auytinysz21/22/2004,12/13/2003 Family History Medical HistoryRelationNameCommentsNo Known ProblemsBrother 1No Known Problems Brother 2No Known ProblemsBrother 3DiabetesFatherParkinsonismFatherBreast cancer Maternal Aunt 1CancerMaternal Aunt 2bile ductBreast cancerMaternal great-grandmotherHypertensionMotherMonica EdwardsMelanomaPaternal Great Uncle RelationNameStatusCommentsBrother 1AliveBrother 2AliveBrother 3AliveFatherAlive Maternal Aunt 1AliveMaternal Aunt 2AliveMaternal great-grandmotherOtherMother Enedelia EdwardsAlivePaternal Great UncleAlive Social History Tobacco UseTypesPacks/DayYears UsedDateSmoking Tobacco: NeverSmokeless Tobacco: Never Tobacco Cessation:Counseling Given: Not Answered Alcohol UseStandard Drinks/WeekCommentsNot Currently0 (1 standard drink = 0.6 oz pure alcohol)[facility] UtilitiesAnswerDate RecordedIn the past 12 months has the [employer]my[employer], gas, oil, or water [employer] threatened to shut off services in your home?No12/18/2024Social Connection and Isolation PanelAnswerDate RecordedIn a typical week, how many times do you talk on the phone with family, friends, or neighbors?More than three times a week12/18/2024How often do you get together with friends or relatives?More than three times a week12/18/2024How often do you attend quaker or worship services?More than 4 times per year12/18/2024Do you belong to any clubs or organizations such as quaker groups, unions, fraternal or athletic groups, or school groups?Yes12/18/2024How often do you attend meetings of the clubs or organizations you belong to?More than 4 times per year12/18/2024 Are you , , , , never , or living with a partner?Qcqoufq7412/18/2024UDIT-CAnswerDate RecordedQ1: How often do you have a drink containing alcohol?Monthly or less12/18/2024Q2: How many drinks containing alcohol do you have on a typical day when you are drinking?1 or Q3: How often do you have six or more drinks on one occasion?Never12/18/2024Overall Financial Resource Strain (CARDIA)AnswerDate RecordedHow hard is it for you to pay for the very basics like food, housing, medical care, and heating?Not hard at all06/11/2025PHQ-2AnswerDate RecordedTotal Hckzp739Finsteward health care system [place] of Occupational Health - Occupational Stress QuestionnaireAnswerDate RecordedDo you feel stress - tense, restless, nervous, or anxious, or unable to sleep at night because yourmind is troubled all the time - these days?Not at all 12/18/2024Exercise Vital SignAnswerDate RecordedOn average, how many days per week do you engage in moderate to strenuous exercise (like a brisk walk)?3 days 12/18/2024On average, how many minutes do you engage in exercise at this level? 10 min12/18/2024PRAPARE - TransportationAnswerDate RecordedIn the past 12 months, has lack of transportation kept you from medical appointments or from getting medications?No06/11/2025In the past 12 months, has lack of transportation kept you from meetings, work, or from getting things needed for daily living?No06/11/2025Housing InstabilityAnswerDate RecordedAre you worried or concerned that in the next two months you may not have stable housing that you own, rent or stay in as a part of a household?No06/11/2025hildcareAnswer Date RecordedDo problems getting child care centre manager make it difficult for you to work or study?No12/18/2024EmploymentAnswerDate RecordedDo you need help finding a local career center and/or a training program?No12/18/2024Hunger ScreeningAnswerDate RecordedWithin the past 12 months we worried whether our food would run out before we got money to buy more.Never True06/25/2025Within the past 12 months the food we bought just didn't last and we didn't have money to get more.Never True06/25/2025Purpose - LifeAnswerDate RecordedI have a purpose and direction in my life.Strongly Agree12/18/2024CommentsUnknownSex and Gender InformationValueDate RecordedSex Assigned at TzfqvThupkf86/25/2023 8:31 PM EST Legal DgpEollbv84/06/2015 12:02 PM EDTGender HmvcdkfvCcdqes89/25/2023 8:31 PM ESTSexual NvlksfnuvymAphraehx22/25/2023 8:31 PM EST Last Filed Vital Signs Vital SignReadingTime TakenCommentsBlood Rbkphkav793/7006/25/2025 11:38 AM EDT Adlvh419606/25/2025 11:38 AM YSLHfkyvlshbyn70.1 ??C (98.7 ??F)06/25/2025 11:38 AM EDTRespiratory Pzjy7594 11:38 AM EDTOxygen Iyofbyyais99%06/25/2025 11:38 AM EDTInhaled Oxygen Concentration--Kfrhud837.4 kg (340 lb 6.4 oz)06/25/2025 11:38 AM TVHZetsrd518.9 cm (6' 0.01 )06/25/2025 11:38 AM EDTBody Mass Index46.16 06/25/2025 11:38 AM EDT Plan of Treatment DateTypeDepartmentCare Team (Latest Contact Info)Lidjxruixzx58/27/2026 10:00 AM EDTOffice Visit [facility] [address] [place] [address] Nelson Sams, DO [address] [facility] [place] [address] Health MaintenanceDue DateLast DoneCommentsPap Smear4Chlamydia Dmvkrvsvw59/3DTaP,Tdap and Td Vaccines (7 - Td or Tdap) /01/2014, 2006, 06/20/2004, Additional history existsCOVID-19 Vaccine (2024- season)/10/2021, 01/23/2021, 01/02/2021, Additional history existsDiabetic Ophthalmology Exam/dult BMI Follow Up Plan/dult BMI Xjdjxnrqs06 Depression Eqqyozwoh19Diabetic Foot Exam, 06/25/2025Tobacco Zdcickhwe65Influenza VaccineCompleted 05/15/2025, 07/20/2019 Medical Devices Not on file Procedures Procedure NamePriorityDate/TimeAssociated DiagnosisCommentsHM DIABETES EYE EXAM Gsydpfw8902/24/2025 4:11 PM EDTfrom Last 3 Months or Most Recently Relevant to Health Maintenance Results * DIABETES EYE EXAM (02/24/2025 4:11 PM EDT) Narrative Authorizing ProviderResult TypeResult StatusNelson Sams DOHEALTH MAINTENANCEFinal ResultPerforming OrganizationAddressCity/State/ZIP CodePhone Number MANUALLY TRANSCRIBED RESULTS from Last 3 Months or Most Recently Relevant to Health Maintenance Insurance Care Teams Team MemberRelationshipSpecialtyStart DateEnd Date Nelson Sams DO [address] [facility] [place] [address] PCP - GeneralFamily Mxzwldtu95/6/22
--- OUTSIDE RECORDS SUMMARY | 2025-08-16 09:58 | XMS_ITS | Encounter Summary ---
Author Organization [facility] Address [address] [facility] [place] [address] Care Team Providers Care Quill Cleaning Machine Operator Name Role Phone Nelson Sams MD Primary Care Provider + [phone] Encounter Details DateTypeDepartmentCare Team (Latest Contact Info)Pzgkrdguoea37/15/2025Abstract [facility]e [facility]VIN [address] [place] [address] Wojciech Solano DO [address] [place] [address] [address] [place], [place] [address] Social History Tobacco UseTypesPacks/DayYears UsedDateSmoking Tobacco: NeverSmokeless Tobacco: NeverAlcohol UseStandard Drinks/WeekCommentsNever0 (1 standard drink = 0.6 oz pure alcohol)caffeine: occasionallyPHQ-2AnswerDate RecordedPatient Health Questionnaire-2 Yfvgc6644CommentsNoSex and Gender Information ValueDate RecordedSex Assigned at SguldJbqgwp34/01/2024 1:34 PM ESTLegal Sex Yziylg2211/11/2022 11:38 PM EDTGender PbmotvwcDczyuu78/01/2024 1:34 PM ESTSexual XwoopfnfkxzFjuppftd84/01/2024 1:34 PM ESTdocumented as of this encounter Plan of Treatment DateTypeDepartmentCare Team (Latest Contact Info)Fprwsyndcgm31/15/2026 11:20 AM EDTProcedure Visit [facility] Kalee MARVIN [address] [facility] [address] Wojciech Solano, DO [address] [facility] [place] [address] 08/13/2026 10:00 AM ESTProcedure Visit [facility] Kalee PEREAN [address] [facility] [place] [address] Wojciech Solano, [address] [facility] [address] [place] [address] documented as of this encounter Visit Diagnoses Not on filedocumented in this encounter Care Teams Team MemberRelationshipSpecialtyStart DateEnd Date Nelson Sams MD [address] [facility] [place] [address] PCP - GeneralFamily Medicine09/06/23documented as of this encounter
--- OUTSIDE RECORDS SUMMARY | 2025-08-16 09:58 | XMS_ITS | Clinical Summary ---
Author Organization [facility] Address [address] [place] [address] Care Team Providers Care Maternal Child Nurse Name Role Phone Nelson Sams MD Primary Care Provider + [phone] Allergies No known active allergies Medications MedicationSigDispense [...] day 16 ofthe menstrual cycle. 14 tablet [id number] Encounters DateTypeDepartmentCare FnlmKkaejnwpoby35/15/2025 1:30 PM ESTProcedure Visit YOEL MARVIN [address] [place] [address] Wojciech Solano, DO Colposcopy needed after cervical smear; LGSIL of cervix of undetermined qsyrcejftyzu34/15/2025bstract [facility]hereen MARVIN [address] [place] [address] Wojciech Solano DO 07/10/2025Orders Only [facility] Kalee MARVIN [address] [place] [address] Isidra Huerta MA 07/03/2025 2:20 PM ESTProcedure Visit [facility] Kalee [facility] [address] [place] [address] Wojciech Solano, Well woman exam with routine gynecological exam; Temowtztca70/04/2025Clinisync Result Encounter [facility] External Department Unsolicited Wojciech Solano DO 5Bamboo flowsheet [facility] [address] [facility] [place] [phone] Wojciech Solano, from Last 3 Months Family History Medical HistoryRelationNameCommentsDiabetesMaternal GrandfatherRochelle garnica Breast cancerMaternal GrandmotherDiabetesMother's Brother 1JonathanDiabetes Mother's Brother 2Jonathan HallBreast cancerMother's SisterVeraRelationName StatusCommentsFatherAliveMaternal GrandfatherRochelle hallMaternal Grandmother MotherAliveMother's Brother 1JonathanMother's Brother 2Jonathan HallMother's SisterVera Social History Tobacco UseTypesPacks/DayYears UsedDateSmoking Tobacco: NeverSmokeless Tobacco: Never Tobacco Cessation:Counseling Given: Yes Alcohol UseStandard Drinks/WeekCommentsNever0 (1 standard drink = 0.6 oz pure alcohol)caffeine: occasionallyPHQ-2AnswerDate RecordedPatient Health Questionnaire-2 Dmhof1064CommentsNoSex and Gender Information ValueDate RecordedSex Assigned at OsvbwKatxaw09/01/2024 1:34 PM ESTLegal Sex Emcvtc0111/11/2022 11:38 PM EDTGender VrtjmzsvNneixs37/01/2024 1:34 PM ESTSexual RgyrqrvpfcwKxlvcyit28/01/2024 1:34 PM EST Last Filed Vital Signs Vital SignReadingTime TakenCommentsBlood Blngfhjw621/6408/13/2025 1:55 PM EST Pulse--Temperature--Respiratory Rate--Oxygen Saturation--Inhaled Oxygen Concentration--Gwpctl955 kg (331 lb)08/13/2025 1:55 PM QMNAdhprs663.9 cm (6') 07/03/2025 2:57 PM ESTBody Mass Index44.8907/03/2025 2:57 PM EST Plan of Treatment DateTypeDepartmentCare Team (Latest Contact Info)Jiqhenfdwho37/15/2026 11:20 AM EDTProcedure Visit YOEL MARVIN [address] [place] [address] [place] [address] Wojciech Solano, [address] [place] [place] [address] 08/13/2026 10:00 AM ESTProcedure Visit YOEL MARVIN [address] [place] [address] [place] [phone] Wojciech Solano, [address] [place] [address] Health MaintenanceDue DateLast DoneCommentsCOVID-19 Vaccine (2024- season) 5009/01/2021, 01/23/2021, 01/07/2021, Additional history existsInfluenza FwoobwiAzyyyuode59/16/2025, 07/20/2019Pneumococcal Vaccine: Pediatrics (0 to 5 Years) and At-Risk Patients (6 to 64 Years)Aged OutNo longer eligible based on patient's age to complete this topic Procedures Procedure NamePriorityDate/TimeAssociated DiagnosisCommentsCOLPOSCOPYRoutine 08/13/2025 2:32 PM EST Colposcopy needed after cervical smear LGSIL of cervix of undetermined significance IGP,APTIMA HPV,AGE FFVJMkbbstf81/04/2025 3:00 PM EST PAP TEST, BNLSZVEAQlxdiqf39/04/2025 12:00 AM ESTfrom Last 3 Months Results * Colposcopy (08/13/2025 2:32 PM EST) Cierra Todd LPN - 08/13/2025 2:32 PM EST Cierra Perry LPN 08/14/2025 3:18 PM Colposcopy Date/Time: 08/13/2025 2:32 [...] handouts given: no ?? Authorizing ProviderResult TypeResult StatusCorey Xiomara [facility]/BEDSIDE ORDERABLESFinal Result * (ABNORMAL) IGP,APTIMA HPV,AGE GDLN (07/03/2025 3:00 PM EST)ComponentValueRef RangeTest MethodAnalysis TimePerformed AtPathologist SignatureAGE GDLN ACOG TESTINGNote.TBHComment: ?? TESTS ? RESULT ??FLAG ??UNITS ?REF RANGE ??LAB ?? Clinician Provided Cytology Information ?? Source.............Cervix;Endocervix ?? No. of containers..01 ThinPrep Vial Age Algo ACOG Jhoana... ??-29 ? 01 ?FLAG LEGEND: ?L-Low Normal,H-High Normal,LL-Alert Low,HH-Alert High <-Panic Low,>-Panic High,A-Abnormal,AA-Critical Abnormal Performed at: 01 =G ?[facility] ?? [address] [place] ??[address] ?? Constance Amaro MD, IGP, RFX APTIMA HPV ASCUNote(A).TBHComment: ?? TESTS ? RESULT ??FLAG ??UNITS ?REF RANGE ??LAB DIAGNOSIS: ? [A] ?02 ?? EPITHELIAL CELL ABNORMALITY. ?? LOW GRADE SQUAMOUS INTRAEPITHELIAL LESION (LSIL). Recommendation: ?[A] ?02 ?? Suggest follow up as clinically appropriate. Specimen adequacy: ?02 ?? Satisfactory for evaluation. ??Endocervical and/or squamous metaplastic ?? cells (endocervical component) are present. Performed by: ? 02 ?? Madie Schaffer, Cycle Repairer (ASCP) Electronically si... ?02 ?? Constance Amaro MD, Pathologist . ? 02 Pathologist ICD10: ?02 ?? R87.612 Note: ? Note ?02 ?? The Pap smear is a screening test designed to aid in the ?? detection of premalignant and malignant conditions of the ?? uterine cervix. ??It is not a diagnostic procedure and ?? should not be used as the sole means of detecting cervical ?? cancer. ??Both false-positive and false-negative reports do ?? occur. Test Methodology: ? Note ?02 ?? This liquid based ThinPrep(R) pap test was interpreted ?? using the [employer](R) Genius(TM) Cervical Algorithm whole ?? slide imaging system. . ? 02 ?? The HPV DNA reflex criteria were not met with this specimen ?? result therefore, no HPV testing was performed. ?FLAG LEGEND: ?L-Low Normal,H-High Normal,LL-Alert Low,HH-Alert High <-Panic Low,>-Panic High,A-Abnormal,AA-Critical Abnormal Performed at: 02 WB ?[facility] ?? [address] [place], [place] ??[address] ?? Constance Amaro MD, Performed at: ??=G - [facility] [address] ??[id number] Alley Cleaner: Constance Amaro MD, Phone: ??[phone] Performed at: ??WB - [facility] [address] ??[id number] Alley Cleaner: Constance Amaro MD, Phone: ??[phone] Specimen (Source)Anatomical Location / LateralityCollection Method / Volume Collection TimeReceived Time07/03/2025 3:00 PM EST07/03/2025 9:43 PM EST Narrative [facility] - 07/09/2025 3:08 PM EST BRUSH-SPATULA CERVIX ENDOCERVIX Authorizing ProviderResult TypeResult StatusCorey Xiomara DOLAB BLOOD ORDERABLES Final ResultPerforming OrganizationAddressCity/State/[facility] CenterPhone Number [facility] * (ABNORMAL) PAP TEST, EXTERNAL (07/03/2025 12:00 AM EST) Narrative Authorizing ProviderResult TypeResult StatusCorey Xiomara DOLAB CYTOLOGY ORDERABLESFinal ResultPerforming OrganizationAddressCity/State/ZIP CodePhone Number EXTERNAL LAB from Last 3 Months Insurance Care Teams Team MemberRelationshipSpecialtyStart DateEnd Date Nelson Sams MD [address] [facility], [place] [address] PCP - GeneralFamily Medicine09/06/23
--- OUTSIDE RECORDS SUMMARY | 2025-08-16 09:58 | XMS_ITS | Clinical Summary ---
Author Organization [facility] Address [address] [place], [place] [id number] Care Team Providers Care Slip Caster Name Role Phone Gerda HARRIS MD, Fan Bruno [facility] [phone] Allergies No known active allergies Medications MedicationSigDispense QuantityRefillsLast FilledStart DateEnd DateStatus metFORMIN (GLUCOPHAGE) 500 mg tablet Take 500 mg by mouth two times a day.Active letrozole (FEMARA) 2.5 mg tablet Take 1 tablet by mouth once daily for 5 days. Menstrual cycle day 3-7 5 tablet ctive medroxyPROGESTERone (PROVERA) 10 mg tablet Take 1 tablet by mouth once daily for 10 days. 10 tablet 04/10/2024ctive Family History Medical HistoryRelationCommentsBreast CancerMaternal AuntBreast CancerMaternal GrandmotherCervical CancerNo Family HistoryOvarian cancerNo Family History Uterine CancerNo Family HistoryRelationStatusCommentsMaternal AuntMaternal Grandmother Social History Tobacco UseTypesPacks/DayYears UsedDateSmoking Tobacco: NeverSmokeless Tobacco: NeverAlcohol UseStandard Drinks/WeekCommentsNot Currently0 (1 standard drink = 0.6 oz pure alcohol)Area Deprivation IndexAnswerDate RecordedNational Score (1- 100), lower number is lower xjmx130404/10/2024State Score (1-10), lower number is lower ewld105ata from: https://www.neighborhoodatlas.medicine.[facility].edu/. Last address used for udtdpuagvyx[address] [facility]04/10/2024CommentsNoSex and Gender Information ValueDate RecordedSex Assigned at BirthNot on fileLegal HcqGjlrte31/17/2024 1:48 PM EDTGender IdentityNot on fileSexual OrientationNot on file Last Filed Vital Signs Vital SignReadingTime TakenCommentsBlood Drkrhadi416/8508 10:43 AM EDT Lyqfn4006 10:43 AM EDTTemperature--Respiratory Rate--Oxygen Saturation-- Inhaled Oxygen Concentration--Hkcyjg950 kg (366 lb)04/10/2024 10:43 AM EDTHeight 182.9 cm (6')04/10/2024 10:43 AM EDTBody Mass Index49.6408 10:43 AM EDT Plan of Treatment Health MaintenanceDue DateLast DoneCommentsPeds To Adult Transition Initial Ugvbuawbzy96/03/2015Peds To Adult Transition Annual Foqaxffgpd51/03/2017HPV Vaccine (1 - 3-dose series)2017Meningococcal B Vaccine (1 of 2 - Standard) 2018Anxiety Nobwkhevy91/03/2021hlamydia Screening (18-24)2020 Depression Fecillkyv89/03/2021GC (Gonorrhea) Screening (18-24)2020HIV Rrwfshqdy18/03/2021Hepatitis C Uqrdwgbjq37/03/2021ervical Cancer Screening 4DTaP,Tdap,Td Vaccine (7 - Td or Tdap)/01/2014, 2006, 06/20/2004, Additional history existsCovid-19 Vaccine ( season) 5009/01/2021, 01/23/2021, 01/07/2021, Additional history existsInfluenza Vaccine (#1)Hepatitis B VafpmsfJvmdkvfrm10/22/2004, 06/11/2003, 02/06/2003, Additional history exists Insurance Care Teams Team MemberRelationshipSpecialtyStart [place] [address] [facility] [address] [place] [address] Ophthalmology01/19/24
== END 2025-08-13 09:55 | disposition home or self-care (01) ==
LOC: LAB 09:54
PROVIDERS: PCP Family Medicine; Visit Provider Obstetrics & Gynecology
DX: R87.619 Unspecified abnormal cytological findings in specimens from cervix uteri (principal)
CPT/HCPCS: 88305